=== PATIENT | female | born 1980 | race Caucasian/White ===

== ENCOUNTER 2019-08-16 14:22 | Inpatient (IN) | payer OTHER, SELFPAY ==
[2019-08-16] VITALS (12 sets, daily range): BP systolic 106–175; BP diastolic 51–76; PULSE 89–122; RESP 16–28; TEMP 36.3–37.2; O2SAT 98–100; BMI 25.7
[2019-08-16] MEDS: SODIUM CHLORIDE 0.9% 1,000 ML 1000 ML IV ×2 (14:35→17:10)
--- NOTE | 2019-08-16 14:36 | DI.RAD.S_ITS ---
PROCEDURE: XR CHEST 1V INDICATIONS: Tachypnea TECHNIQUE: One view of the chest was acquired. COMPARISON: [facility], , CHEST 1 VIEW, 09/01/2010, 3:37. FINDINGS: Surgical changes and devices: None. Lungs and pleura: Lungs are clear. No pleural effusions or pneumothorax. Mediastinum: Mediastinal contours appear normal. Heart size is normal. Bones and chest wall: No suspicious bony lesions. Overlying soft tissues appear unremarkable. IMPRESSION: No acute pulmonary process. Dictated by: Debby Salgado M.D. on 08/16/2019 at 14:21 Approved by: Debby Salgado M.D. on 08/16/2019 at 14:22
[2019-08-16 14:43] LABS: Add Manual Diff / Slide Review NO; Basophils Absolute Auto 200 /uL (0-100); Basophils Percent Auto 1.3 % (0-2); Eosinophils Absolute Auto 400 /uL (0-450); Eosinophils Percent Auto 2.2 % (2-4); Hemoglobin 15.5 g/dL (12.0-16.0); Lymphocytes Absolute Auto 4800 /uL (1100-4500); Lymphocytes Percent Auto 29.1 % (25-40); Mean Corpuscular HGB Conc 31.6 % (30-36); Mean Corpuscular Hemoglobin 30.3 PG (26-34); Monocytes Absolute Auto 900 /uL (0-900); Monocytes Percent Auto 5.4 % (3-14); Neutrophils Absolute Auto 10200 /uL (1500-7000); Platelet Count 584 X10^3/uL (150-400); Red Blood Cell Count 5.11 X10^6/uL (4.0-5.2); Red Cell Distribution Width 14.6 % (11.6-14.8); White Blood Cell Count 16.4 X10^3/uL (4.5-11.0)
[2019-08-16 14:55] LABS: Lactate (Lactic Acid) 3.1 mmol/L (0.7-2.1)
--- NOTE | 2019-08-16 15:09 | ED_ITS ---
HPI - General Adult General Chief complaint: Diabetic Problem Stated complaint: ketoacidosis Time Seen by Provider: 08/16/19 14:27 Source: patient Mode of arrival: Wheelchair Limitations: no limitations History of Present Illness HPI narrative: Patient is a 39-year-old female. She is a type 1 diabetic. Has been in DKA in the past. States for the past several days has not felt well. Has had some headaches. Has taken some ibuprofen for headaches. She has been taking her insulin. She does admit that her diet is not as good as it should be. Symptoms worsening until today when she stated that things got worse and came to the emergency department. Related Data Home Medications Medication Instructions Recorded Confirmed ibuprofen 600 mg PO PRN PRN 08/16/19 08/16/19 insulin lispro [Humalog U-100 0 unit INJ SEE INSTRUCTIONS 08/16/19 08/16/19 Insulin] levothyroxine 150 mcg PO DAILY 08/16/19 08/16/19 Allergies Allergy/AdvReac Type Severity Reaction Status Date / Time No Known Drug Allergies Allergy Verified 08/16/19 14:36 Review of Systems Constitutional Constitutional: Reports fatigue, Denies fever(s), Reports malaise and Reports weakness Eyes Eyes: Denies change in vision ENT Ears, Nose, Mouth, and Throat: Denies vertigo, Denies dizziness and Denies disequilibrium Cardiovascular Cardiovascular: Denies chest pain, Reports dyspnea and Reports dyspnea on exertion Respiratory Respiratory: Denies cough, Reports dyspnea and Reports dyspnea on exertion Gastrointestinal Gastrointestinal: Reports abdominal pain, Denies change in stool character, Reports nausea and Denies vomiting Genitourinary Genitourinary: Denies dysuria Musculoskeletal Musculoskeletal: Denies back pain, Denies myalgias and Denies arthralgias Integumentary/Breasts Skin/Breast: Denies lesions and Denies rash Neurologic Neurologic: Denies behavioral changes, Denies vertigo, Denies dizziness, Denies disequilibrium and Reports weakness Psychiatric Psychiatric: Denies behavioral changes Endocrine Endocrine: Reports fatigue Hematologic/Lymphatic Hematologic/Lymphatic: Denies easy bleeding and Denies easy bruising Allergic/Immunologic Allergic/Immunologic: Denies urticaria Patient History Medical History Acquired hypothyroidism Diabetes (Acute) Surgical History (Updated 01/12/18 @ 05:02 by Joselyn Hernandez MD) Status post hysteroscopy Status post myringotomy with insertion of tube Family History (Updated 07/23/15 @ 00:00 by Conversion Provider) Father Age: 64 High cholesterol Grandfather Age: 90 Diabetes mellitus Grandmother Age: 87 Breast cancer Mother Age: 64 High cholesterol Grandmother Cancer Heart disease Sister Age: 42 High cholesterol Social History Smoking Status: Unknown if ever smoked alcohol intake frequency: holidays/special occasions only Substance Use Type: does not use Exam Initial Vital Signs Initial Vital Signs: Vital Signs Temperature 97.3 F L 08/16/19 14:30 Pulse Rate 122 H 08/16/19 14:30 Respiratory Rate 23 08/16/19 14:30 Blood Pressure 175/54 H 08/16/19 14:30 Pulse Oximetry 100 08/16/19 14:30 Const General: cooperative, comfortable and well developed Orientation: alert, awake and oriented x3 HENMT Head: normal to inspection and normocephalic Mouth: No moist mucous membranes Eyes Pupils: PERRL Resp Effort & Inspection: not labored and tachypneic Auscultation: not clear to auscultation bilaterally Cardio Rate: tachycardic Rhythm: regular rhythm Pulses: radial pulses present GI Inspection: non-distended Palpation: soft, No firm and No tender Skin Lesions: no lesions Rashes: no rashes Neuro General: alert, awake and oriented x3 Cognition: normal cognition Speech: speech normal Motor: muscle tone normal throughout Extrem General: normal to inspection and capillary refill normal Psych Appearance: grossly normal and well kempt Course Orders Ordered: ED Orders 08/16/19 14:30 Complete Blood Count AUTO DIFF Stat Lactate (Lactic Acid) Stat 08/16/19 14:36 XR chest 1V Stat 08/16/19 14:37 EKG-12 Lead Stat 08/16/19 14:55 Comprehensive Metabolic Panel Stat Ethanol (ETOH) Stat Ketones (Beta-Hydroxybutyrate) Stat Lipase Stat Magnesium Stat Phosphorous Stat Test Serum,Qual Stat Procalcitonin Stat Thyroid Stimulating Hormone Stat 08/16/19 15:02 Arterial Blood Gas Stat 08/16/19 16:35 Respiratory Panel (Film Array) Stat INSULIN DRIP PREMIX (Myxredlin Drip Premix) 100 unit in 100 mls @ 8 mls/hr IV TITRATE FER; Protocol Last Admin: 08/16/19 16:01 Dose: 8 ml/hr, 8 mls/hr Documented by: DAJUAN Potassium Chloride 20 meq/ (Sodium Chloride) 260 mls @ 130 mls/hr IV NOW ONE Stop: 08/16/19 17:24 Last Admin: 08/16/19 16:20 Dose: 130 mls/hr Documented by: DAJUAN Cosigned by: BTONER Sodium Chloride (Normal Saline 0.9%) 1,000 mls @ 250 mls/hr IV CONT FER Last Admin: 08/16/19 16:05 Dose: 250 mls/hr Documented by: DAJUAN Sodium Chloride (Normal Saline 0.9%) 1,000 mls @ 1,000 mls/hr IV BOLUS ONE Stop: 08/16/19 17:33 Discontinued Medications Sodium Chloride (Normal Saline 0.9%) 1,000 mls @ 1,000 mls/hr IV BOLUS ONE Stop: 08/16/19 15:34 Last Infusion: 08/16/19 15:44 Dose: 0 mls/hr Documented by: Admin: 08/16/19 14:35 Dose: 1,000 mls/hr Documented by: DAJUAN Vital Signs Vital signs: Vital Signs - 8 hr 08/16/19 14:30 08/16/19 15:00 08/16/19 15:11 Temperature 97.3 F L Pulse Rate 122 H 111 H 111 H Respiratory Rate 23 28 H 22 Blood Pressure 175/54 H Blood Pressure [Left Arm] 155/71 H Pulse Oximetry 100 100 100 08/16/19 15:30 Temperature Pulse Rate 104 H Respiratory Rate 21 Blood Pressure Blood Pressure [Left Arm] 135/66 Pulse Oximetry 100 Medical Decision Making Lab Data Lab results reviewed: Yes I reviewed the patient's lab results. Result diagrams: 08/16/19 14:30 08/16/19 14:55 Labs: Lab Results 08/16/19 08/16/19 08/16/19 Range/Units 14:30 14:30 14:55 WBC 16.4 H (4.5-11.0) X10^3/uL RBC 5.11 (4.0-5.2) X10^6/uL Hgb 15.5 (12.0-16.0) g/dL Hct 49.0 H (36-46) % MCV 96.0 (80-100) fL MCH 30.3 (26-34) PG MCHC 31.6 (30-36) % RDW 14.6 (11.6-14.8) % Plt Count 584 H (150-400) X10^3/uL Neut % (Auto) 62.0 (50-75) % Lymph % (Auto) 29.1 (25-40) % [place] % (Auto) 5.4 (3-14) % Eos % (Auto) 2.2 (2-4) % Baso % (Auto) 1.3 (0-2) % Neut # (Auto) 90522 H (5425-1838) /uL Lymph # (Auto) 4800 H (2797-8509) /uL [place] # (Auto) 900 (0-900) /uL Eos # (Auto) 400 (0-450) /uL Baso # (Auto) 200 H (0-100) /uL ABG pH (7.35-7.45) ABG pCO2 (35-45) mmHg ABG pO2 (80-100) mmHg ABG HCO3 (22-26) mmol/L ABG Total CO2 (21-31) mmol/L ABG O2 Saturation (95-100) % ABG Base Excess (-2-2) mmol/L FiO2 Sodium (137-145) mmol/L Potassium (3.4-5.1) mmol/L Chloride (98-107) mmol/L Carbon Dioxide (22-32) mmol/L BUN (7-17) mg/dL Creatinine (0.52-1.04) mg/dL Estimated GFR (>60) mL/min BUN/Creatinine Ratio (6-22) Glucose (70-100) mg/dL Lactate 3.1 H (0.7-2.1) mmol/L Calcium (8.4-10.2) mg/dL Phosphorus (2.5-4.5) mg/dL Magnesium (1.6-2.3) mg/dL Total Bilirubin (0.2-1.3) mg/dL AST (14-36) IU/L ALT (<35) IU/L Alkaline Phosphatase (38-126) U/L Total Protein (6.3-8.2) g/dL Albumin (3.5-5.0) g/dL Globulin (1.7-4.1) g/dL Albumin/Globulin Ratio (1.0-2.8) Lipase (23-300) U/L Procalcitonin 0.18 (<0.5) ng/mL TSH (0.47-4.68) uIU/mL Serum , Qual Negative (Negative) Ethyl Alcohol ( - 10) mg/dL Ketones (<0.27) mmol/L 08/16/19 08/16/19 08/16/19 Range/Units 14:55 14:55 15:02 WBC (4.5-11.0) X10^3/uL RBC (4.0-5.2) X10^6/uL Hgb (12.0-16.0) g/dL Hct (36-46) % MCV (80-100) fL MCH (26-34) PG MCHC (30-36) % RDW (11.6-14.8) % Plt Count (150-400) X10^3/uL Neut % (Auto) (50-75) % Lymph % (Auto) (25-40) % [place] % (Auto) (3-14) % Eos % (Auto) (2-4) % Baso % (Auto) (0-2) % Neut # (Auto) (3779-3625) /uL Lymph # (Auto) (6631-7841) /uL [place] # (Auto) (0-900) /uL Eos # (Auto) (0-450) /uL Baso # (Auto) (0-100) /uL ABG pH 7.18 L* (7.35-7.45) ABG pCO2 9.0 L* (35-45) mmHg ABG pO2 131 H (80-100) mmHg ABG HCO3 3 L (22-26) mmol/L ABG Total CO2 < 5 L (21-31) mmol/L ABG O2 Saturation 98 (95-100) % ABG Base Excess -25.0 L (-2-2) mmol/L FiO2 0.21 Sodium 142 (137-145) mmol/L Potassium 4.1 (3.4-5.1) mmol/L Chloride 108 H (98-107) mmol/L Carbon Dioxide 8 L* (22-32) mmol/L BUN 11 (7-17) mg/dL Creatinine 0.90 (0.52-1.04) mg/dL Estimated GFR > 60.0 (>60) mL/min BUN/Creatinine Ratio 12.2 (6-22) Glucose 359 H (70-100) mg/dL Lactate (0.7-2.1) mmol/L Calcium 9.3 (8.4-10.2) mg/dL Phosphorus 3.5 (2.5-4.5) mg/dL Magnesium 2.1 (1.6-2.3) mg/dL Total Bilirubin 0.4 (0.2-1.3) mg/dL AST 36 (14-36) IU/L ALT 28 (<35) IU/L Alkaline Phosphatase 224 H (38-126) U/L Total Protein 7.8 (6.3-8.2) g/dL Albumin 4.3 (3.5-5.0) g/dL Globulin 3.5 (1.7-4.1) g/dL Albumin/Globulin Ratio 1.2 (1.0-2.8) Lipase 61 (23-300) U/L Procalcitonin (<0.5) ng/mL TSH 15.60 H (0.47-4.68) uIU/mL Serum , Qual (Negative) Ethyl Alcohol < 10 ( - 10) mg/dL Ketones 9.75 H (<0.27) mmol/L Point of Care Testing Glucose POC 347 Point of care testing: Point of Care Testing Glucose POC 347 Imaging Data Chest x-ray: Radiologist's impression: [address] [address] XRay Report Signed Patient: Catina Moya [facility]#: [id number] : 1980Acct:[id number] Age/Sex: 39 / FDate of Service: 08/16/19 Loc: ED Accession Number: [id number] Procedure: XR chest 1V Ordering Provider: Sidney Nolen D.O. PROCEDURE: XR CHEST 1V INDICATIONS: Tachypnea TECHNIQUE: One view of the chest was acquired. COMPARISON: [facility], CHEST 1 VIEW, 09/01/2010, 3:37. FINDINGS: Surgical changes and devices: None. Lungs and pleura: Lungs are clear. No pleural effusions or pneumothorax. Mediastinum: Mediastinal contours appear normal. Heart size is normal. Bones and chest wall: No suspicious bony lesions. Overlying soft tissues appear unremarkable. IMPRESSION: No acute pulmonary process. Dictated by: Debby Salgado M.D. on 08/16/2019 at 14:21 Approved by: Debby Salgado M.D. on 08/16/2019 at 14:22 ECG Data Attestation: I personally reviewed and interpreted this ECG as follows: Prior ECG tracings: not available for review Interpretation: Sinus tachycardia Ventricular rate of 121 Normal axis Normal QRS Normal QTC No ST T wave changes MDM Narrative Medical decision making narrative: No specific source of infection found however her respiratory panel 1 urinalysis were still pending at the time of admission. Patient states she is taking her insulin but does admit to not having a very good diet. She also admits to not taking her thyroid medication on a regular basis per patient has labs and history and physical consistent with DKA. Anion gap is 26. Potassium 4.1. Patient was given fluids. Started on an insulin drip. Was also given potassium. Mag and phos unremarkable. I discussed the admission with hospitalist who accepts. Discussed the diagnosis and admission with the patient expressed understanding and agreement. Critical Care Time Critical Care Time Critical Care Time: Yes Total Critical Care Time: 40 Attestation: The high probability of a clinically significant, sudden or life threatening deterioration of the endocrine system(s) required my full and direct attention, intervention and personal management. The aggregate critical care time was 40 minutes. This time is in addition to time spent performing reported procedures but includes the following: [] Data Review and interpretation [] Patient assessment and monitoring of vital signs [] Documentation [] Medication orders and management Discharge Plan Departure Patient Disposition: Admitted As Inpatient Clinical Impression: Diabetic ketoacidosis Qualifiers: Diabetes mellitus type: type 1 Diabetes mellitus complication detail: without coma Qualified Code(s): E10.10 - Type 1 diabetes mellitus with ketoacidosis without coma Hypothyroid Qualifiers: Hypothyroidism type: unspecified Qualified Code(s): E03.9 - Hypothyroidism, unspecified
[2019-08-16 15:13] LABS: HEMOLYSIS < 15 (0-50)
[2019-08-16 15:19] LABS: Alanine Aminotransferase 28 IU/L (<35); Albumin 4.3 g/dL (3.5-5.0); Albumin Globulin Ratio 1.2 (1.0-2.8); Alkaline Phosphatase 224 U/L (38-126); Aspartate Aminotransferase 36 IU/L (14-36); BUN Creatinine Ratio 12.2 (6-22); Bilirubin Total 0.4 mg/dL (0.2-1.3); Blood Urea Nitrogen 11 mg/dL (7-17); Calcium 9.3 mg/dL (8.4-10.2); Chloride 108 mmol/L (98-107); Estimated Glomerular Filt Rate > 60.0 mL/min (>60); Ethanol (ETOH) < 10 mg/dL; Globulin 3.5 g/dL (1.7-4.1); Glucose 359 mg/dL (70-100); Lipase 61 U/L (23-300); Magnesium 2.1 mg/dL (1.6-2.3); Phosphorous 3.5 mg/dL (2.5-4.5); Potassium 4.1 mmol/L (3.4-5.1); Sodium 142 mmol/L (137-145); Total Protein 7.8 g/dL (6.3-8.2)
[2019-08-16 15:22] LABS: Carbon Dioxide 8 mmol/L (22-32)
[2019-08-16 15:32] LABS: Ketones (Beta-Hydroxybutyrate) 9.75 mmol/L (<0.27)
[2019-08-16 15:38] LABS: Pregnancy Test Serum,Qual Negative (Negative)
[2019-08-16 15:40] LABS: Procalcitonin 0.18 ng/mL (<0.5)
[2019-08-16 15:47] LABS: HCO3 ABG 3 mmol/L (22-26); PO2 ABG 131 mmHg (80-100); TCO2 ABG < 5 mmol/L (21-31); pH ABG 7.18 (7.35-7.45)
[2019-08-16 15:48] LABS: Fractionated Inspired Oxygen 0.21; Oxygen Saturation ABG 98 % (95-100)
[2019-08-16] MEDS: INSULIN DRIP PREMIX 100 UNIT/100 ML PLAST..BAG 8 UNIT IV (16:01)
--- NOTE | 2019-08-16 16:02 | PC.NURSE ---
Verified Insulin drip with Lupe Hurley RN
[2019-08-16] MEDS: SODIUM CHLORIDE 0.9% 1,000 ML 250 ML IV (16:05)
[2019-08-16] MEDS: POTASSIUM CHLORIDE 20 MEQ in SODIUM CHLORIDE 0.9% 250 ML 130 ML IV (16:20)
[2019-08-16 16:50] LABS: Reflexed Lactate in 2 Hours Y
--- NOTE | 2019-08-16 17:50 | PC.NURSE ---
Admit Note Pt arrived to room 104 from ER at 1700, walked to bed from stretcher. Alert and oriented x3. Oriented to room and to call light/TV/bed controls. Call light within reach. Boyfriend, Tc, took patient's wallet home. Pt's cell phone and clothing in room. Insulin gtt at 8 un/hr on arrival, CBG 159 and gtt titrated to 4 un/hr per protocol and after discussion with Dr. Fox. D5 1/2 NS to be started per DKA protocol after second L NS infused per Dr. Fox. SR/ST in the 90-100 bpm range, bp stable, SpO2 100% on RA.
[2019-08-16] MEDS: DEXTROSE 10 % IN WATER 1,000 ML 158 ML IV (18:10)
[2019-08-16] MEDS: DEXTROSE 5%-0.45% NS 1,000 ML 118.5 ML IV (19:00)
[2019-08-16 19:10] LABS: Bacteria Urine None Seen; RBC Urine None Seen (0-5/HPF); WBC Urine None Seen (0-5/HPF)
[2019-08-16 19:12] LABS: Appearance Urine UA CLEAR; Bilirubin Urine UA 2+ (NEGATIVE); Color Urine UA YELLOW; Glucose Urine UA 1+ g/dL (Negative); Ketones Urine UA 3+ (NEGATIVE); Leukocyte Esterase Urine UA NEGATIVE (NEGATIVE); Nitrite Urine UA NEGATIVE (Negative); Occult Blood Urine UA TRACE-LYSED (Negative); Protein Urine UA 2+ (Negative); Specific Gravity Urine UA 1.025 (1.000-1.035); Urobilinogen Urine UA 0.2 E.U./dL (0.2)
[2019-08-16] MEDS: ACETAMINOPHEN 325 MG TABLET 650 MG PO (19:25)
[2019-08-16 19:27] LABS: Blood Urea Nitrogen 9 mg/dL (7-17); Calcium 8.1 mg/dL (8.4-10.2); Carbon Dioxide 14 mmol/L (22-32); Chloride 113 mmol/L (98-107); Estimated Glomerular Filt Rate > 60.0 mL/min (>60); Glucose 154 mg/dL (70-100); HEMOLYSIS < 15 (0-50); Potassium 3.8 mmol/L (3.4-5.1); Sodium 140 mmol/L (137-145)
[2019-08-16 19:28] LABS: pH Urine UA 5.5 (4.5-8.0)
[2019-08-16 19:41] LABS: Granular Casts Urine 5-10/LPF; Squamous Epithelial Cell Urine 1-5 /HPF (0-5/HPF)
[2019-08-16 19:46] LABS: Ictotest Urine Positive (Negative)
--- NOTE | 2019-08-16 20:00 | PM.HP.1 ---
History of Present Illness History of Present Illness Date Patient Seen: 08/16/19 Time Patient Seen: 20:00 Chief complaint: ketoacidosis Narrative: The patient is a 39-year-old female with PMH of DM 1T (w/complications of diabetic retinopathy), hypothyroidism, dyslipidemia, and migraines. Patient presented out of concern for diabetic ketoacidosis. She has had DKA in the past, last 4 years ago (by report). Reports a 4 day history of generalized malaise, nausea, and vomiting (1-2x per day). Symptoms have been persistent. Associated symptoms include a weakness, headache, palpitations, and difficulty breathing. Over the past today she has developed a headache, localized to the frontal aspect of the head. Admits to taking 600 mg of ibuprofen 3 to 4 times a day. Today (08/16), prior to ED presentation, was having difficulty breathing and felt lightheaded when trying to ambulate. Patient denies recent illness, fever or chills. Denies chest pain and syncopal events. Denies dyspnea with exertion, peripheral edema, and orthopnea. Denies PND. Denies symptoms of URI and UTI. Denies change in weight. Denies abdominal pain, diarrhea, melena, and hematochezia. Recently experiencing work related stressors. Also, patient and significant other, boyfriend Tc, verbalized stressors related to parenthood and childrearing. Patient was diagnosed with DM 1T in 1994. Outside of the hospital patient manages her diabetes with Humalog only, per sliding scale. She was on an insulin pump until 2016. Stopped using the pump after her child was born, as the infant was pulling on the lines of the pump and causing pump malfunction. It has been a number of years since her A1c was checked, last record of 6.9% (07/2017). Most recent eye exam (09/2017) showed presence of mild diabetic retinopathy. Patient was previously on lisinopril for renal protective effects. She denies prior current history of hypertension. At present time she does not see an requirements engineer, however has seen one in the past. Currently her insulin is being being prescribed by Kerrie DOSHI in [place]. Records show that she was seeing Dr. Joselyn Hernandez in the past. According to the patient, this provider is no longer in the area and she has not established care with a new PCP. Records show history of dyslipidemia. She was previously on lovastatin. ED Presentation & Work-Up VS at triage, 08/16 14:30. T 97.3F BP 175/54 HR 122 RR 23 SpO2 100% on RA. GCS 15. Head pain on presentation, 05/24. Improvement in VS and headache w/ IVF hydration. EKG, 08/16/19 14:41. ST (v-rate 121) w/ short NC interval (113 ms). Non-specific T-waves. QTc 461. Increased T wave amplitude V2 V3, not overtly peaked. ABG, 08/16 at 15:02... pH 7.18 pCO2 9.0 pO2 131 HCO3 3 Base Excess -25 Serum Ketones 9.75 Lactate 3.1 (:30) --> 2.0 (1952) WBC 16.4 PCT 0.18 CBC 08/16, 14:30... RBC 5.11 Hgb 15.5 Hct 49.0 Plt 584 Labs 08/16, 14:55... Na 142 K 4.1 Cl 108 Ca 9.3 Glu 359 CO2 8 BUN 11 Cr 0.9 T.Bili 0.4 AST 36 ALT 28 ALK PHOS 224 Lipase 61 TSH 15.6 Labs 08/16, 19:06... Na 140 K 3.8 Cl 113 Ca 8.1 Glu 154 CO2 14 BUN 9 Cr 0.6 UA (1909) protein (2+), glucose 1+, ketones 3+, bilirubin 2+ ictotest positive Patient History Medical History (Updated 08/16/19 @ 23:37 by KARSTEN Mejia) Diabetes mellitus type 1 with complications (Chronic ~1994) Diabetic retinopathy (Chronic 09/21/17) Dyslipidemia (Chronic) Hypothyroid (Chronic ~1991) Surgical History Status post hysteroscopy Status post myringotomy with insertion of tube Family & Social History Family History Father Age: 64 High cholesterol Grandfather Age: 90 Diabetes mellitus Grandmother Age: 87 Breast cancer Mother Age: 64 High cholesterol Grandmother Cancer Heart disease Sister Age: 42 High cholesterol Social History: household members significant other and a 3 yo child Prior Living Arrangements House Safety & Behavioral: Feels Safe in Current Yes Environment Been Physically Hurt or No Threatened By a Person Suicidal Ideation Description None Suicide Plan Description No Plan Tobacco & Substance use: Smoking Status Never smoker alcohol intake frequency holiday/special occasion Substance Use Type Denies prior and current use Meds Home Medications and Allergies Home Medications Medication Instructions Recorded Confirmed Type ibuprofen 600 mg PO PRN PRN 08/16/19 08/16/19 History insulin lispro [Humalog U-100 0 unit INJ SEE INSTRUCTIONS 08/16/19 08/16/19 History Insulin] levothyroxine 150 mcg PO DAILY 08/16/19 08/16/19 History Allergies Allergy/AdvReac Type Severity Reaction Status Date / Time No Known Drug Allergies Allergy Verified 08/16/19 14:36 Review of Systems Review of Systems ROS Unobtainable: All systems reviewed & are unremarkable except as noted in HPI and below Exam Vital Signs (past 8 hours): - 08/16/19 14:30 08/16/19 15:00 08/16/19 15:11 Temperature 97.3 F L Pulse Rate 122 H 111 H 111 H Respiratory Rate 23 28 H 22 Blood Pressure 175/54 H Blood Pressure [Left Arm] 155/71 H Pulse Oximetry 100 100 100 08/16/19 15:30 08/16/19 16:30 08/16/19 17:11 Temperature 99 F Pulse Rate 104 H 101 H 105 H Respiratory Rate 21 20 21 Blood Pressure 115/66 Blood Pressure [Left Arm] 135/66 106/76 Pulse Oximetry 100 100 100 08/16/19 18:38 08/16/19 19:33 Temperature Pulse Rate 99 H 98 H Respiratory Rate 19 19 Blood Pressure 111/60 113/52 L Blood Pressure [Left Arm] Pulse Oximetry 99 99 Oxygen Delivery Method Room Air Narrative Exam Narrative: Constitutional: NAD Neurologic: AOx3, no focal neurological deficits Head: NC, AT Eyes: PERRL, EOMI, Ears: external ears normal, no otorrhea Nose: external nose normal, no rhinorrhea or epistaxis Throat: dry MM, oropharynx w/o exudate Neck: no masses, lymphadenopathy, or JVD Chest / Respiratory: equal chest rise, unlabored respiratory effort, no tachypnea, CTAB, on RA Heart / CV: S1S2, no murmur Abdomen / GI: round, NT, ND, + BS / hyperactive, no organomegaly : no suprapubic tenderness, no CVA Peripheral / Vascular: warm to touch, DP and PT pulses palpable, no edema Musc: full ROM of upper and lower extremities, adequate muscle tone and bulk Skin: no ecchymosis or suspicious lesions / ulcers Objective Labs Result Diagrams: 08/17/19 04:09 08/17/19 04:09 Labs: Laboratory Results - last 24 hr 08/16/19 08/16/19 08/16/19 14:30 14:30 14:55 WBC 16.4 H RBC 5.11 Hgb 15.5 Hct 49.0 H MCV 96.0 MCH 30.3 MCHC 31.6 RDW 14.6 Plt Count 584 H Neut % (Auto) 62.0 Lymph % (Auto) 29.1 Moody % (Auto) 5.4 Eos % (Auto) 2.2 Baso % (Auto) 1.3 Neut # (Auto) 15307 H Lymph # (Auto) 4800 H Moody # (Auto) 900 Eos # (Auto) 400 Baso # (Auto) 200 H ABG pH ABG pCO2 ABG pO2 ABG HCO3 ABG Total CO2 ABG O2 Saturation ABG Base Excess FiO2 Sodium Potassium Chloride Carbon Dioxide BUN Creatinine Estimated GFR BUN/Creatinine Ratio Glucose Lactate 3.1 H Calcium Phosphorus Magnesium Total Bilirubin AST ALT Alkaline Phosphatase Total Protein Albumin Globulin Albumin/Globulin Ratio Lipase Procalcitonin 0.18 TSH Serum , Qual Negative Urine Color Urine Appearance Urine pH Ur Specific [place] Urine Protein Urine Glucose (UA) Urine Ketones Urine Occult Blood Urine Nitrate Urine Bilirubin Urine Ictotest Urine Urobilinogen Ur Leukocyte Esterase Urine RBC Urine WBC Ur Squamous Epith Cells Urine Bacteria Granular Casts Ur Culture Indicated? Ethyl Alcohol Ketones 08/16/19 08/16/19 08/16/19 14:55 14:55 15:02 WBC RBC Hgb Hct MCV MCH MCHC RDW Plt Count Neut % (Auto) Lymph % (Auto) Moody % (Auto) Eos % (Auto) Baso % (Auto) Neut # (Auto) Lymph # (Auto) Moody # (Auto) Eos # (Auto) Baso # (Auto) ABG pH 7.18 L* ABG pCO2 9.0 L* ABG pO2 131 H ABG HCO3 3 L ABG Total CO2 < 5 L ABG O2 Saturation 98 ABG Base Excess -25.0 L FiO2 0.21 Sodium 142 Potassium 4.1 Chloride 108 H Carbon Dioxide 8 L* BUN 11 Creatinine 0.90 Estimated GFR > 60.0 BUN/Creatinine Ratio 12.2 Glucose 359 H Lactate Calcium 9.3 Phosphorus 3.5 Magnesium 2.1 Total Bilirubin 0.4 AST 36 ALT 28 Alkaline Phosphatase 224 H Total Protein 7.8 Albumin 4.3 Globulin 3.5 Albumin/Globulin Ratio 1.2 Lipase 61 Procalcitonin TSH 15.60 H Serum , Qual Urine Color Urine Appearance Urine pH Ur Specific [place] Urine Protein Urine Glucose (UA) Urine Ketones Urine Occult Blood Urine Nitrate Urine Bilirubin Urine Ictotest Urine Urobilinogen Ur Leukocyte Esterase Urine RBC Urine WBC Ur Squamous Epith Cells Urine Bacteria Granular Casts Ur Culture Indicated? Ethyl Alcohol < 10 Ketones 9.75 H 08/16/19 08/16/19 19:06 19:09 WBC RBC Hgb Hct MCV MCH MCHC RDW Plt Count Neut % (Auto) Lymph % (Auto) Moody % (Auto) Eos % (Auto) Baso % (Auto) Neut # (Auto) Lymph # (Auto) Moody # (Auto) Eos # (Auto) Baso # (Auto) ABG pH ABG pCO2 ABG pO2 ABG HCO3 ABG Total CO2 ABG O2 Saturation ABG Base Excess FiO2 Sodium 140 Potassium 3.8 Chloride 113 H Carbon Dioxide 14 L BUN 9 Creatinine 0.60 Estimated GFR > 60.0 BUN/Creatinine Ratio 15.0 Glucose 154 H D Lactate Calcium 8.1 L Phosphorus Magnesium Total Bilirubin AST ALT Alkaline Phosphatase Total Protein Albumin Globulin Albumin/Globulin Ratio Lipase Procalcitonin TSH Serum , Qual Urine Color Yellow Urine Appearance Clear Urine pH 5.5 Ur Specific [place] 1.025 Urine Protein 2+ H Urine Glucose (UA) 1+ H Urine Ketones 3+ H Urine Occult Blood Trace-lysed Urine Nitrate Negative Urine Bilirubin 2+ H Urine Ictotest Positive H Urine Urobilinogen 0.2 Ur Leukocyte Esterase Negative Urine RBC None seen Urine WBC None seen Ur Squamous Epith Cells 1-5 /hpf Urine Bacteria None seen Granular Casts 5-10/lpf Ur Culture Indicated? Culture not indicate Ethyl Alcohol Ketones Assessment & Plan Assessment & Plan narrative: Patient is being admitted to ICU for DKA. DKA, acute, present on admission, active - On admission pH 7.18 pCO2 8 ketones 9.75 - Baseline EKG. ST w/ short NC. Non-specific T-waves. Increased T-wave amplitude V2 V3, not overtly peaked. QTc 461. - Tele monitoring - Insulin and IVF per DKA protocol. - BMP, Mg, Phos, and CBC Q4H x3 (0000, 0400, and 0800), then re-evaluate need for Q4H labs - Add to labs that have been drawn: A1C, Mg, Phos, and UDS results reviewed: A1C 10.6%, Mg 2.0, Phos 1.6, UDS - negative - ok to advance diet to clears only at this time - supportive care: analgesics and anti-emetics available prn DM 1T, chronic condition, present on admission, active / uncontrolled - A1C 10.6% - Known complications of diabetic retinopathy (09/2017) - LAUNDRY TECH on Humalog per SSI - on hold while treating DKA - Encouraged annual eye exam and foot checks - Encouraged patient to establish care w/ endocrinology, at least to see annually - Consider checking for proteinuria once DKA resolved, previously on lisinopril for dianna-protective effects, but has not been taking for a while Hypothyroidism, chronic condition, present on admission, active / uncontrolled - on levothyroxine 150 mcg daily levothyroxine dose has last been checked and dose adjusted 1 year ago per patient's report Headache, acute, present on admission, active - In the setting of acute illness / dehydration. - IVF, analgesics available prn Dyslipidemia, per history with previous use of statin, active - Previously on a statin, has not been taken, lipid control is unknown - FLP in am Full code. No formal health directive. Designates significant other is healthcare proxy. Home medications reviewed and reconciled accordingly. VTE prophylaxis w/ SCDs and SQ lovenox Quality VTE Deep Vein Thrombosis/Pulmonary Embolism Present on Admission: No
[2019-08-16 20:23] LABS: Phosphorous 1.6 mg/dL (2.5-4.5)
[2019-08-16 20:31] LABS: UR Morphine/Opiate cutoff 300 Negative (Negative); Ur Creatinine Normal (Normal); Ur Specific Gravity Normal (Normal); Urine Amphetamines Negative (Negative); Urine Barbiturates Negative (Negative); Urine Benzodiazepines Negative (Negative); Urine Cocaine Negative (Negative); Urine MDMA Negative (Negative); Urine Methadone Negative (Negative); Urine Methamphetamines Negative (Negative); Urine Oxycodone Negative (Negative); Urine Phencyclidine Negative (Negative); Urine Tetrahydrocannabinol Negative (Negative); Urine Tricyclic Antidepressant Negative (Negative); Urine pH Normal (Normal)
[2019-08-16 20:50] LABS: Adenovirus Not Detected (Not Detect); Bordetella pertussis Not Detected (Not Detect); Chlamydophila pneumoniae Not Detected (Not Detect); Coronavirus 229E Not Detected (Not Detect); Coronavirus HKU1 Not Detected (Not Detect); Coronavirus NL 63 Not Detected (Not Detect); Coronavirus OC43 Not Detected (Not Detect); Human Metapneumovirus Not Detected (Not Detect); Human Rhinovirus/Enterovirus Not Detected (Not Detect); Influenza A Not Detected (Not Detect); Influenza B Not Detected (Not Detect); Mycoplasma pneumoniae Not Detected (Not Detect); Parainfluenza Virus 1 Not Detected (Not Detect); Parainfluenza Virus 2 Not Detected (Not Detect); Parainfluenza Virus 3 Not Detected (Not Detect); Parainfluenza Virus 4 Not Detected (Not Detect); Respiratory Syncytial Virus Not Detected (Not Detect)
[2019-08-16 21:25] LABS: Hemoglobin A1C% w Est Avg Glu 10.6 % (4.0-6.0)
[2019-08-16] MEDS: POTASSIUM CHLORIDE 40 MEQ in SODIUM CHLORIDE 0.9% 500 ML 130 ML IV (22:32)
[2019-08-17] VITALS (13 sets, daily range): BP systolic 102–127; BP diastolic 39–67; PULSE 76–98; RESP 15–20; TEMP 36.8–37.2; O2SAT 98–100
[2019-08-17] MEDS: ACETAMINOPHEN 325 MG TABLET 650 MG PO ×2 (00:11→08:22)
[2019-08-17 00:34] LABS: Add Manual Diff / Slide Review NO; Basophils Absolute Auto 100 /uL (0-100); Eosinophils Absolute Auto 300 /uL (0-450); Eosinophils Percent Auto 2.1 % (2-4); Hematocrit 36.2 % (36-46); Hemoglobin 11.6 g/dL (12.0-16.0); Lymphocytes Absolute Auto 3700 /uL (1100-4500); Lymphocytes Percent Auto 28.5 % (25-40); Mean Corpuscular Hemoglobin 29.6 PG (26-34); Mean Corpuscular Volume 92.5 fL (80-100); Monocytes Absolute Auto 1300 /uL (0-900); Monocytes Percent Auto 10.1 % (3-14); Neutrophils Absolute Auto 7500 /uL (1500-7000); Neutrophils Percent Auto 58.3 % (50-75); Platelet Count 372 X10^3/uL (150-400); Red Blood Cell Count 3.92 X10^6/uL (4.0-5.2); Red Cell Distribution Width 14.6 % (11.6-14.8); White Blood Cell Count 12.9 X10^3/uL (4.5-11.0)
[2019-08-17 00:46] LABS: BUN Creatinine Ratio 13.3 (6-22); Blood Urea Nitrogen 8 mg/dL (7-17); Calcium 8.1 mg/dL (8.4-10.2); Carbon Dioxide 15 mmol/L (22-32); Chloride 112 mmol/L (98-107); Estimated Glomerular Filt Rate > 60.0 mL/min (>60); Glucose 247 mg/dL (70-100); HEMOLYSIS < 15 (0-50); Magnesium 1.8 mg/dL (1.6-2.3); Potassium 4.2 mmol/L (3.4-5.1); Sodium 136 mmol/L (137-145)
[2019-08-17 04:57] LABS: Add Manual Diff / Slide Review NO; Basophils Absolute Auto 100 /uL (0-100); Basophils Percent Auto 0.6 % (0-2); Cholesterol 173 mg/dL (140-199); Eosinophils Absolute Auto 300 /uL (0-450); Eosinophils Percent Auto 2.3 % (2-4); HDL Cholesterol 30 mg/dL (40-60); LDL Cholesterol Calculated 77 mg/dL (<100); Lymphocytes Absolute Auto 4000 /uL (1100-4500); Mean Corpuscular HGB Conc 32.4 % (30-36); Mean Corpuscular Volume 92.6 fL (80-100); Monocytes Absolute Auto 1500 /uL (0-900); Monocytes Percent Auto 11.3 % (3-14); Neutrophils Absolute Auto 7400 /uL (1500-7000); Neutrophils Percent Auto 55.8 % (50-75); Platelet Count 349 X10^3/uL (150-400); Red Blood Cell Count 3.68 X10^6/uL (4.0-5.2); Triglycerides 328 mg/dL (35-150); White Blood Cell Count 13.2 X10^3/uL (4.5-11.0)
[2019-08-17 04:58] LABS: BUN Creatinine Ratio 11.7 (6-22); Blood Urea Nitrogen 7 mg/dL (7-17); Calcium 8.3 mg/dL (8.4-10.2); Carbon Dioxide 14 mmol/L (22-32); Chloride 112 mmol/L (98-107); Estimated Glomerular Filt Rate > 60.0 mL/min (>60); Glucose 196 mg/dL (70-100); HEMOLYSIS < 15 (0-50); Magnesium 1.9 mg/dL (1.6-2.3); Potassium 4.2 mmol/L (3.4-5.1); Sodium 135 mmol/L (137-145)
[2019-08-17 05:28] LABS: Phosphorous 1.1 mg/dL (2.5-4.5)
[2019-08-17] MEDS: LEVOTHYROXINE 150 MCG TABLET PO (08:21)
[2019-08-17] MEDS: POTASSIUM CHLORIDE 20 MEQ in SODIUM CHLORIDE 0.9% 250 ML 130 ML IV (08:21)
[2019-08-17] MEDS: ENOXAPARIN 40 MG/0.4 ML SYRINGE SUBCUT (08:21)
[2019-08-17 08:48] LABS: Fractionated Inspired Oxygen 0.21; HCO3 ABG 11 mmol/L (22-26); Oxygen Saturation ABG 87 % (95-100); PO2 ABG 54 mmHg (80-100); TCO2 ABG 12 mmol/L (21-31); pH ABG 7.34 (7.35-7.45)
[2019-08-17 08:49] LABS: PCO2 ABG 20.5 mmHg (35-45)
[2019-08-17 09:03] LABS: Add Manual Diff / Slide Review NO; Basophils Absolute Auto 100 /uL (0-100); Basophils Percent Auto 1.1 % (0-2); Eosinophils Absolute Auto 400 /uL (0-450); Eosinophils Percent Auto 3.8 % (2-4); Hematocrit 34.6 % (36-46); Hemoglobin 11.3 g/dL (12.0-16.0); Lymphocytes Absolute Auto 3000 /uL (1100-4500); Lymphocytes Percent Auto 26.7 % (25-40); Mean Corpuscular HGB Conc 32.5 % (30-36); Mean Corpuscular Hemoglobin 30.1 PG (26-34); Mean Corpuscular Volume 92.6 fL (80-100); Monocytes Absolute Auto 1200 /uL (0-900); Monocytes Percent Auto 10.2 % (3-14); Neutrophils Absolute Auto 6600 /uL (1500-7000); Neutrophils Percent Auto 58.2 % (50-75); Platelet Count 343 X10^3/uL (150-400); Red Blood Cell Count 3.73 X10^6/uL (4.0-5.2); Red Cell Distribution Width 14.9 % (11.6-14.8); White Blood Cell Count 11.4 X10^3/uL (4.5-11.0)
[2019-08-17] MEDS: INSULIN DRIP PREMIX 100 UNIT/100 ML PLAST..BAG 12 UNIT IV (09:05)
[2019-08-17 09:06] LABS: Blood Urea Nitrogen 6 mg/dL (7-17); Calcium 8.4 mg/dL (8.4-10.2); Carbon Dioxide 13 mmol/L (22-32); Chloride 111 mmol/L (98-107); Estimated Glomerular Filt Rate > 60.0 mL/min (>60); Glucose 327 mg/dL (70-100); HEMOLYSIS 15 (0-50); Magnesium 1.7 mg/dL (1.6-2.3); Phosphorous 1.6 mg/dL (2.5-4.5); Sodium 135 mmol/L (137-145)
[2019-08-17] MEDS: INSULIN GLARGINE 100 UNIT/ML 3ML PEN 10 UNIT SUBCUT (10:50)
--- NOTE | 2019-08-17 11:05 | DIET.PN ---
Dietary Progress Note Assessment: 39y F admitted for DKA with A1c of 10.6, BG of 359, pH 7.18, pCO2 8, and ketones 9.75. A1c of 10.6 indicates average BG of 250 over the past 10w. Pt dx c T1D in 1994, went through DM education last when insulin pump was installed. Pt last known A1c was < 7. Had pump removed r/t toddler daughter pulling out lines. Pt has gone through several PCPs in last couple years, but all have relocated. Last saw Kerrie Sousa at [facility] in , dissapointed she left. Pt lives c daughter and boyfriend, this poses barrier as BF doesn't know a lot about DM and often eats the DM friendly foods in the house. Pt's 3y daughter likes fruits and veggies, refuses juice (don't keep in house), but is a picky eater who mostly relies on mac & cheese and pizza which are high in CHO. Pt often waits too long to eat and relies on quick items, eating late in the day. Pt states she knows what to do, but her motivation to stay on track waxes and wanes. Is appreciative of meal and snack idea handout. HT: 175.2cm WT: 79kg BMI: 25.7 Labs:A1c of 10.6, BG of 359, pH 7.18, pCO2 8, and ketones 9.75 Nutrition Diagnosis: Interventions: 1. Discussed option of initiating care with Lars's replacement KARSTEN Raman at [facility]. 2. Discussed barriers to eating to manage BG focusing on quick meals and snacks c good sources of PRO and healthy fat. Provided handout on the topic. 3. Discussed completing DSME at with boyfriend present so he can be supportive of pt's health. Pt resistant to this option. Diet Order: CCD 2 Monitoring/Evaluations: as needed, pt d/c likely today
[2019-08-17 11:23] LABS: Blood Urea Nitrogen 6 mg/dL (7-17); Calcium 8.5 mg/dL (8.4-10.2); Carbon Dioxide 12 mmol/L (22-32); Chloride 113 mmol/L (98-107); Estimated Glomerular Filt Rate > 60.0 mL/min (>60); Glucose 142 mg/dL (70-100); HEMOLYSIS < 15 (0-50); Potassium 3.1 mmol/L (3.4-5.1); Sodium 139 mmol/L (137-145)
--- NOTE | 2019-08-17 11:55 | CM.DANOTE ---
DCP Assessment: EMR Reviewed: Patient is a 39 yr old female admitted to ICU for DKA. Patient is a type 1 diabetic and has had Dm for 25 years. CM/RN met with the patient at the bedside and explained CM/RN role. Patient was alert and oriented x3 during CM visit. patient currently lives in [place] with her 3 yr old daughter and her boyfriend Carolann Boland. Patient doesn't currently have a PCP but CM/RN spoke with patient about possible options for PCP. Patient did see LEN Sousa at [facility]. CM/RN talked with Patient about working with PA césar Raman. Patient agreed and patients RN is calling to schedule a follow up appt for sometime this week. Cm/RN asked patient about a insuline pump. Patient stated she has one but has stopped wearing it because when her daughter was younger she would pull on it and pull out the lines. Patient plans on meeting with a provider later this week that way she can get the needed supplies to start back on her pump. CM/Rn also recommended patient request a referral to an steam turbine operator to help patient manage her type 1 DM. CM?RN discussed patients eating habits. Patient stated she understands what to do and how to eat but stated I just get tired of always having to monitor everything. Patient also stated it was difficult to eat well CM/Rn spoke with Dietition Sheridan who will go to talk with patient and give information to patient about diet options for the patient. I: Jos 2nd: Self pay Plan: D/C home with significant other and daughter when medically stable. Patient stated agreement to attend PCP appointment that patients RN is setting up to: establish care, get insulin pump equipment, medications and Endocrinology referral. P
[2019-08-17] MEDS: INSULIN ASPART 100 UNIT/ML INSULN PEN SUBCUT (12:32)
[2019-08-17] MEDS: INSULIN ASPART 100 UNIT/ML INSULN PEN 6 UNIT SUBCUT (12:32)
[2019-08-17] MEDS: POTASSIUM CHLORIDE 20 MEQ TAB 40 MEQ PO (13:41)
--- NOTE | 2019-08-17 13:52 | P.DS_ITS ---
History of Present Illness History of Present Illness Date Patient Seen: 08/16/19 Chief complaint: ketoacidosis Narrative: Written by Maxi SHELLEY: The patient is a 39-year-old female with PMH of DM 1T (w/complications of diabetic retinopathy), hypothyroidism, dyslipidemia, and migraines. Patient presented out of concern for diabetic ketoacidosis. She has had DKA in the past, last 4 years ago (by report). Reports a 4 day history of generalized mal aise, nausea, and vomiting (1-2x per day). Symptoms have been persistent. Associated symptoms include a weakness, headache, palpitations, and difficulty breathing. Over the past today she has developed a headache, localized to the frontal aspect of the head. Admits to taking 600 mg of ibuprofen 3 to 4 times a day. Today (08/16), prior to ED presentation, was having difficulty breathing and felt lightheaded when trying to ambulate. Patient denies recent illness, fever or chills. Denies chest pain and syncopal events. Denies dyspnea with exertion, peripheral edema, and orthopnea. Denies PND. Denies symptoms of URI and UTI. Denies change in weight. Denies abdominal pain, diarrhea, melena, and hematochezia. Recently experiencing work related stressors. Also, patient and significant other, boyfriend [place], verbalized stressors related to parenthood and childrearing. Patient was diagnosed with DM 1T in 1994. Outside of the hospital patient manages her diabetes with Humalog only, per sliding scale. She was on an insulin pump until 2016. Stopped using the pump after her child was born, as the was pulling on the lines of the pump and causing pump malfunction. It has been a number of years since her A1c was checked, last record of 6.9% (07/2017). Most recent eye exam (09/2017) showed presence of mild diabetic retinopathy. Patient was previously on lisinopril for renal protective effects. She denies prior current history of hypertension. At present time she does not see an sand slinger, however has seen one in the past. Currently her insulin is being being prescribed by Kerrie DOSHI in [place]. Records show that she was seeing Dr. Joselyn Hernandez in the past. According to the patient, this provider is no longer in the area and she has not established care with a new PCP. Records show history of dyslipidemia. She was previously on lovastatin. ED Presentation & Work-Up VS at triage, 08/16 14:30. T 97.3F BP 175/54 HR 122 RR 23 SpO2 100% on RA. GCS 15. Head pain on presentation, 05/24. Improvement in VS and headache w/ IVF hydration. EKG, 08/16/19 14:41. ST (v-rate 121) w/ short GA interval (113 ms). Non-specific T-waves. QTc 461. Increased T wave amplitude V2 V3, not overtly peaked. ABG, 08/16 at 15:02... pH 7.18 pCO2 9.0 pO2 131 HCO3 3 Base Excess -25 Serum Ketones 9.75 Lactate 3.1 () --> 2.0 (1952) WBC 16.4 PCT 0.18 CBC 08/16, 14:30... RBC 5.11 Hgb 15.5 Hct 49.0 Plt 584 Labs 08/16, 14:55... Na 142 K 4.1 Cl 108 Ca 9.3 Glu 359 CO2 8 BUN 11 Cr 0.9 T.Bili 0.4 AST 36 ALT 28 ALK PHOS 224 Lipase 61 TSH 15.6 Labs 08/16, 19:06... Na 140 K 3.8 Cl 113 Ca 8.1 Glu 154 CO2 14 BUN 9 Cr 0.6 UA (1909) protein (2+), glucose 1+, ketones 3+, bilirubin 2+ ictotest positive Discharge Providers Provider Date of admission: 08/16/19 16:45 Discharge Date: 08/17/19 Discharge provider: Denita Huitron Hospital Course Discharge Diagnosis: 1. Acute DKA, present on admission. Resolved. 2. Diabetes mellitus type I, chronic, present on admission. Stable and uncontrolled. 3. Hypothyroidism, chronic, present on admission. Active. 4. Headache, acute, present on admission. Resolved. 5. Dyslipidemia, present on admission. Stable. Hospital Course: Catina Moya is a 39-year-old female with Ppast medical history significant for diabetes mellitus type I with complication of diabetic retinopathy, hyp othyroidism, dyslipidemia, and migraines who presented out of concern for diabetic ketoacidosis. 1. Acute DKA, present on admission. Resolved. -On admission ABG pH 7.18, pCO2 8. Ketones 9.75. -Baseline EKG. ST with short GA. Non-specific T-waves. Increased T-wave amplitude V2 V3, not overtly peaked. QTc 461. -Continued to monitor on telemetry. -Initiated DKA protocol with insulin gtt, fluid replacement with normal saline then transitioned to 0.45% normal saline and then D5 0.45% normal saline until blood glucose was less than 250. Monitored blood glucose and electrolytes every 4 hours until anion gap closed and repleted as necessary. Transitioned off insulin gtt and restarted home regimen. Continued lantus increased from 22 to 25 units at bedtime and nutritional insulin with humalog based on sliding scale. -Mg 2.0. Phos low at 1.6. UDS negative. -Continued supportive care: analgesics and anti-emetics available as needed. 2. Diabetes mellitus type I, chronic, present on admission. Stable and uncontrolled. -Hemoglobin A1C 10.6%. -Known complications of diabetic retinopathy (09/2017) -Encouraged annual eye exam and foot checks -Encouraged patient to establish care with endocrinology, at least to see annually. -Consider checking for proteinuria once DKA resolved, previously on lisinopril for dianna-protective effects, but has not been taking for a while -Restarted home insulin regimen after treagted DKA as above. 3. Hypothyroidism, chronic, present on admission. Active. -TSH elevated at 15.60. -Continued levothyroxine 150 mcg daily. Did not adjust dose as patient was acutely ill and recommended outpatient follow-up of thyroid function in next 1-2 weeks per PCP and possibly endocrinology in future. 4. Headache, acute, present on admission. Resolved. -In the setting of acute illness / dehydration. -Continued IV fluids until adequately hydrated as above and then discontinued. -Ordered analgesics available as needed. 5. Dyslipidemia, present on admission. Stable. -Previously on a statin,. -Fasting lipid panel demonstrated:Total cholesterol 173, Triglycerides as expected elevated at 328, LDL 77, and HDL low at 30. -Continue to implement lifestyle modification with diet, exercise, and control diabetes. Exam Vital Signs (past 8 hours): - 08/17/19 06:00 08/17/19 07:00 08/17/19 08:00 Temperature 98.9 F 98.6 F Pulse Rate 86 95 H 98 H Respiratory Rate 18 15 20 Blood Pressure 113/54 L 102/40 L 116/52 L Pulse Oximetry 99 99 98 08/17/19 10:00 08/17/19 11:00 08/17/19 12:00 Temperature Pulse Rate 95 H 97 H 94 H Respiratory Rate 20 18 18 Blood Pressure 127/57 L 127/67 114/59 L Pulse Oximetry 99 100 100 Oxygen Delivery Method Room Air Oxygen Flow Rate 0 Narrative Exam Narrative: General: Middle aged female lying in bed and in no acute distress, well- developed, well-nourished, appropriately interactive. HEENT: Normocephalic, atraumatic. External ears without defect. Pupils equal, round, and reactive to light. Anicteric sclerae, moist conjunctivae, and no lid lag. Oropharynx free of erythema and cobble stoning with moist mucosa. Neck: Supple with full range of motion. No jugular venous distension. No lymphadenopathy or thyromegaly. Cardiovascular: Regular rhythm, mild tachycardia, without murmurs, rubs, or gallops appreciated Pulmonary: Clear to auscultation bilaterally without crackles, wheezes, or rhonchi. Normal respiratory effort with no use of accessory muscles. Abdomen: Soft, bowel sounds present, nontender, nondistended. No hepatosplenomegaly or masses appreciated. Extremities: No clubbing, cyanosis, or edema. Skin: Normal temperature, turgor, and texture; no rash, ulcers, or subcutaneous nodules appreciated. Neurological: Cranial nerves grossly intact. Psychiatric: Normal mood and affect. Alert and oriented to person, place, and time. Objective Labs Result Diagrams: 08/17/19 08:15 08/17/19 10:35 Labs: Laboratory Results - last 24 hr 08/16/19 08/16/19 08/16/19 14:30 14:30 14:55 WBC 16.4 H RBC 5.11 Hgb 15.5 Hct 49.0 H MCV 96.0 MCH 30.3 MCHC 31.6 RDW 14.6 Plt Count 584 H Neut % (Auto) 62.0 Lymph % (Auto) 29.1 Love % (Auto) 5.4 Eos % (Auto) 2.2 Baso % (Auto) 1.3 Neut # (Auto) 36225 H Lymph # (Auto) 4800 H Love # (Auto) 900 Eos # (Auto) 400 Baso # (Auto) 200 H ABG pH ABG pCO2 ABG pO2 ABG HCO3 ABG Total CO2 ABG O2 Saturation ABG Base Excess FiO2 Sodium Potassium Chloride Carbon Dioxide BUN Creatinine Estimated GFR BUN/Creatinine Ratio Glucose Hemoglobin A1c Lactate 3.1 H Calcium Phosphorus Magnesium Total Bilirubin AST ALT Alkaline Phosphatase Total Protein Albumin Globulin Albumin/Globulin Ratio Triglycerides Cholesterol LDL Cholesterol, Calc HDL Cholesterol Lipase Procalcitonin 0.18 TSH Serum , Qual Negative Urine Color Urine Appearance Urine pH Ur Specific [place] Urine Protein Urine Glucose (UA) Urine Ketones Urine Occult Blood Urine Nitrate Urine Bilirubin Urine Ictotest Urine Urobilinogen Ur Leukocyte Esterase Urine RBC Urine WBC Ur Squamous Epith Cells Urine Bacteria Granular Casts Ur Culture Indicated? Nasal Screen MRSA (PCR) U Morph 300 ng/mL cutoff Ur Oxycodone Screen Urine Methadone Screen Ur Barbiturates Screen U Tricyclic Antidepress Ur Phencyclidine Scrn Ur Amphetamines Screen U Methamphetamines Scrn Ur MDMA Scrn (Ecstasy) U Benzodiazepines Scrn Urine Cocaine Screen U Marijuana (THC) Screen Ethyl Alcohol Ketones Chlamy pneumoniae PCR Adenovirus (PCR) B.parapertussis DNA PCR Coronavirus OC43 (PCR) Coronavirus HKU1 (PCR) Coronavirus 229E (PCR) Coronavirus NL63 (PCR) Human Metapneumovir PCR Influenza Type A (PCR) Influenza Type B (PCR) M. pneumoniae (PCR) Parainfluenza 1 (PCR) Parainfluenza 2 (PCR) Parainfluenza 3 (PCR) Parainfluenza 4 (PCR) RSV (PCR) Entero/Rhino (PCR) 08/16/19 08/16/19 08/16/19 14:55 14:55 14:55 WBC RBC Hgb Hct MCV MCH MCHC RDW Plt Count Neut % (Auto) Lymph % (Auto) Love % (Auto) Eos % (Auto) Baso % (Auto) Neut # (Auto) Lymph # (Auto) Love # (Auto) Eos # (Auto) Baso # (Auto) ABG pH ABG pCO2 ABG pO2 ABG HCO3 ABG Total CO2 ABG O2 Saturation ABG Base Excess FiO2 Sodium 142 Potassium 4.1 Chloride 108 H Carbon Dioxide 8 L* BUN 11 Creatinine 0.90 Estimated GFR > 60.0 BUN/Creatinine Ratio 12.2 Glucose 359 H Hemoglobin A1c 10.6 H Lactate Calcium 9.3 Phosphorus 3.5 Magnesium 2.1 Total Bilirubin 0.4 AST 36 ALT 28 Alkaline Phosphatase 224 H Total Protein 7.8 Albumin 4.3 Globulin 3.5 Albumin/Globulin Ratio 1.2 Triglycerides Cholesterol LDL Cholesterol, Calc HDL Cholesterol Lipase 61 Procalcitonin TSH 15.60 H Serum , Qual Urine Color Urine Appearance Urine pH Ur Specific [place] Urine Protein Urine Glucose (UA) Urine Ketones Urine Occult Blood Urine Nitrate Urine Bilirubin Urine Ictotest Urine Urobilinogen Ur Leukocyte Esterase Urine RBC Urine WBC Ur Squamous Epith Cells Urine Bacteria Granular Casts Ur Culture Indicated? Nasal Screen MRSA (PCR) U Morph 300 ng/mL cutoff Ur Oxycodone Screen Urine Methadone Screen Ur Barbiturates Screen U Tricyclic Antidepress Ur Phencyclidine Scrn Ur Amphetamines Screen U Methamphetamines Scrn Ur MDMA Scrn (Ecstasy) U Benzodiazepines Scrn Urine Cocaine Screen U Marijuana (THC) Screen Ethyl Alcohol < 10 Ketones 9.75 H Chlamy pneumoniae PCR Adenovirus (PCR) B.parapertussis DNA PCR Coronavirus OC43 (PCR) Coronavirus HKU1 (PCR) Coronavirus 229E (PCR) Coronavirus NL63 (PCR) Human Metapneumovir PCR Influenza Type A (PCR) Influenza Type B (PCR) M. pneumoniae (PCR) Parainfluenza 1 (PCR) Parainfluenza 2 (PCR) Parainfluenza 3 (PCR) Parainfluenza 4 (PCR) RSV (PCR) Entero/Rhino (PCR) 08/16/19 08/16/19 08/16/19 15:02 17:00 17:50 WBC RBC Hgb Hct MCV MCH MCHC RDW Plt Count Neut % (Auto) Lymph % (Auto) Love % (Auto) Eos % (Auto) Baso % (Auto) Neut # (Auto) Lymph # (Auto) Love # (Auto) Eos # (Auto) Baso # (Auto) ABG pH 7.18 L* ABG pCO2 9.0 L* ABG pO2 131 H ABG HCO3 3 L ABG Total CO2 < 5 L ABG O2 Saturation 98 ABG Base Excess -25.0 L FiO2 0.21 Sodium Potassium Chloride Carbon Dioxide BUN Creatinine Estimated GFR BUN/Creatinine Ratio Glucose Hemoglobin A1c Lactate Calcium Phosphorus Magnesium Total Bilirubin AST ALT Alkaline Phosphatase Total Protein Albumin Globulin Albumin/Globulin Ratio Triglycerides Cholesterol LDL Cholesterol, Calc HDL Cholesterol Lipase Procalcitonin TSH Serum , Qual Urine Color Urine Appearance Urine pH Ur Specific [place] Urine Protein Urine Glucose (UA) Urine Ketones Urine Occult Blood Urine Nitrate Urine Bilirubin Urine Ictotest Urine Urobilinogen Ur Leukocyte Esterase Urine RBC Urine WBC Ur Squamous Epith Cells Urine Bacteria Granular Casts Ur Culture Indicated? Nasal Screen MRSA (PCR) Negative for mrsa U Morph 300 ng/mL cutoff Ur Oxycodone Screen Urine Methadone Screen Ur Barbiturates Screen U Tricyclic Antidepress Ur Phencyclidine Scrn Ur Amphetamines Screen U Methamphetamines Scrn Ur MDMA Scrn (Ecstasy) U Benzodiazepines Scrn Urine Cocaine Screen U Marijuana (THC) Screen Ethyl Alcohol Ketones Chlamy pneumoniae PCR Not detected Adenovirus (PCR) Not detected B.parapertussis DNA PCR Not detected Coronavirus OC43 (PCR) Not detected Coronavirus HKU1 (PCR) Not detected Coronavirus 229E (PCR) Not detected Coronavirus NL63 (PCR) Not detected Human Metapneumovir PCR Not detected Influenza Type A (PCR) Not detected Influenza Type B (PCR) Not detected M. pneumoniae (PCR) Not detected Parainfluenza 1 (PCR) Not detected Parainfluenza 2 (PCR) Not detected Parainfluenza 3 (PCR) Not detected Parainfluenza 4 (PCR) Not detected RSV (PCR) Not detected Entero/Rhino (PCR) Not detected 08/16/19 08/16/19 08/16/19 19:06 19:06 19:06 WBC RBC Hgb Hct MCV MCH MCHC RDW Plt Count Neut % (Auto) Lymph % (Auto) Love % (Auto) Eos % (Auto) Baso % (Auto) Neut # (Auto) Lymph # (Auto) Love # (Auto) Eos # (Auto) Baso # (Auto) ABG pH ABG pCO2 ABG pO2 ABG HCO3 ABG Total CO2 ABG O2 Saturation ABG Base Excess FiO2 Sodium 140 Potassium 3.8 Chloride 113 H Carbon Dioxide 14 L BUN 9 Creatinine 0.60 Estimated GFR > 60.0 BUN/Creatinine Ratio 15.0 Glucose 154 H D Hemoglobin A1c Lactate Calcium 8.1 L Phosphorus 1.6 L D Magnesium 2.0 Total Bilirubin AST ALT Alkaline Phosphatase Total Protein Albumin Globulin Albumin/Globulin Ratio Triglycerides Cholesterol LDL Cholesterol, Calc HDL Cholesterol Lipase Procalcitonin TSH Serum , Qual Urine Color Urine Appearance Urine pH Ur Specific [place] Urine Protein Urine Glucose (UA) Urine Ketones Urine Occult Blood Urine Nitrate Urine Bilirubin Urine Ictotest Urine Urobilinogen Ur Leukocyte Esterase Urine RBC Urine WBC Ur Squamous Epith Cells Urine Bacteria Granular Casts Ur Culture Indicated? Nasal Screen MRSA (PCR) U Morph 300 ng/mL cutoff Ur Oxycodone Screen Urine Methadone Screen Ur Barbiturates Screen U Tricyclic Antidepress Ur Phencyclidine Scrn Ur Amphetamines Screen U Methamphetamines Scrn Ur MDMA Scrn (Ecstasy) U Benzodiazepines Scrn Urine Cocaine Screen U Marijuana (THC) Screen Ethyl Alcohol Ketones Chlamy pneumoniae PCR Adenovirus (PCR) B.parapertussis DNA PCR Coronavirus OC43 (PCR) Coronavirus HKU1 (PCR) Coronavirus 229E (PCR) Coronavirus NL63 (PCR) Human Metapneumovir PCR Influenza Type A (PCR) Influenza Type B (PCR) M. pneumoniae (PCR) Parainfluenza 1 (PCR) Parainfluenza 2 (PCR) Parainfluenza 3 (PCR) Parainfluenza 4 (PCR) RSV (PCR) Entero/Rhino (PCR) 08/16/19 08/16/19 08/16/19 19:09 19:09 19:53 WBC RBC Hgb Hct MCV MCH MCHC RDW Plt Count Neut % (Auto) Lymph % (Auto) Love % (Auto) Eos % (Auto) Baso % (Auto) Neut # (Auto) Lymph # (Auto) Love # (Auto) Eos # (Auto) Baso # (Auto) ABG pH ABG pCO2 ABG pO2 ABG HCO3 ABG Total CO2 ABG O2 Saturation ABG Base Excess FiO2 Sodium Potassium Chloride Carbon Dioxide BUN Creatinine Estimated GFR BUN/Creatinine Ratio Glucose Hemoglobin A1c Lactate 2.0 Calcium Phosphorus Magnesium Total Bilirubin AST ALT Alkaline Phosphatase Total Protein Albumin Globulin Albumin/Globulin Ratio Triglycerides Cholesterol LDL Cholesterol, Calc HDL Cholesterol Lipase Procalcitonin TSH Serum , Qual Urine Color Yellow Urine Appearance Clear Urine pH 5.5 Ur Specific [place] 1.025 Urine Protein 2+ H Urine Glucose (UA) 1+ H Urine Ketones 3+ H Urine Occult Blood Trace-lysed Urine Nitrate Negative Urine Bilirubin 2+ H Urine Ictotest Positive H Urine Urobilinogen 0.2 Ur Leukocyte Esterase Negative Urine RBC None seen Urine WBC None seen Ur Squamous Epith Cells 1-5 /hpf Urine Bacteria None seen Granular Casts 5-10/lpf Ur Culture Indicated? Culture not indicate Nasal Screen MRSA (PCR) U Morph 300 ng/mL cutoff Negative Ur Oxycodone Screen Negative Urine Methadone Screen Negative Ur Barbiturates Screen Negative U Tricyclic Antidepress Negative Ur Phencyclidine Scrn Negative Ur Amphetamines Screen Negative U Methamphetamines Scrn Negative Ur MDMA Scrn (Ecstasy) Negative U Benzodiazepines Scrn Negative Urine Cocaine Screen Negative U Marijuana (THC) Screen Negative Ethyl Alcohol Ketones Chlamy pneumoniae PCR Adenovirus (PCR) B.parapertussis DNA PCR Coronavirus OC43 (PCR) Coronavirus HKU1 (PCR) Coronavirus 229E (PCR) Coronavirus NL63 (PCR) Human Metapneumovir PCR Influenza Type A (PCR) Influenza Type B (PCR) M. pneumoniae (PCR) Parainfluenza 1 (PCR) Parainfluenza 2 (PCR) Parainfluenza 3 (PCR) Parainfluenza 4 (PCR) RSV (PCR) Entero/Rhino (PCR) 08/17/19 08/17/19 08/17/19 00:13 00:13 04:09 WBC 12.9 H RBC 3.92 L Hgb 11.6 L Hct 36.2 MCV 92.5 D MCH 29.6 MCHC 32.0 RDW 14.6 Plt Count 372 Neut % (Auto) 58.3 Lymph % (Auto) 28.5 Love % (Auto) 10.1 Eos % (Auto) 2.1 Baso % (Auto) 1.0 Neut # (Auto) 7500 H Lymph # (Auto) 3700 Love # (Auto) 1300 H Eos # (Auto) 300 Baso # (Auto) 100 ABG pH ABG pCO2 ABG pO2 ABG HCO3 ABG Total CO2 ABG O2 Saturation ABG Base Excess FiO2 Sodium 136 L 135 L Potassium 4.2 4.2 Chloride 112 H 112 H Carbon Dioxide 15 L 14 L BUN 8 7 Creatinine 0.60 0.60 Estimated GFR > 60.0 > 60.0 BUN/Creatinine Ratio 13.3 11.7 Glucose 247 H 196 H Hemoglobin A1c Lactate Calcium 8.1 L 8.3 L Phosphorus 2.0 L 1.1 L* Magnesium 1.8 1.9 Total Bilirubin AST ALT Alkaline Phosphatase Total Protein Albumin Globulin Albumin/Globulin Ratio Triglycerides Cholesterol LDL Cholesterol, Calc HDL Cholesterol Lipase Procalcitonin TSH Serum , Qual Urine Color Urine Appearance Urine pH Ur Specific [place] Urine Protein Urine Glucose (UA) Urine Ketones Urine Occult Blood Urine Nitrate Urine Bilirubin Urine Ictotest Urine Urobilinogen Ur Leukocyte Esterase Urine RBC Urine WBC Ur Squamous Epith Cells Urine Bacteria Granular Casts Ur Culture Indicated? Nasal Screen MRSA (PCR) U Morph 300 ng/mL cutoff Ur Oxycodone Screen Urine Methadone Screen Ur Barbiturates Screen U Tricyclic Antidepress Ur Phencyclidine Scrn Ur Amphetamines Screen U Methamphetamines Scrn Ur MDMA Scrn (Ecstasy) U Benzodiazepines Scrn Urine Cocaine Screen U Marijuana (THC) Screen Ethyl Alcohol Ketones Chlamy pneumoniae PCR Adenovirus (PCR) B.parapertussis DNA PCR Coronavirus OC43 (PCR) Coronavirus HKU1 (PCR) Coronavirus 229E (PCR) Coronavirus NL63 (PCR) Human Metapneumovir PCR Influenza Type A (PCR) Influenza Type B (PCR) M. pneumoniae (PCR) Parainfluenza 1 (PCR) Parainfluenza 2 (PCR) Parainfluenza 3 (PCR) Parainfluenza 4 (PCR) RSV (PCR) Entero/Rhino (PCR) 08/17/19 08/17/19 08/17/19 04:09 04:09 08:15 WBC 13.2 H RBC 3.68 L Hgb 11.0 L Hct 34.0 L MCV 92.6 MCH 30.0 MCHC 32.4 RDW 15.0 H Plt Count 349 Neut % (Auto) 55.8 Lymph % (Auto) 30.0 Love % (Auto) 11.3 Eos % (Auto) 2.3 Baso % (Auto) 0.6 Neut # (Auto) 7400 H Lymph # (Auto) 4000 Love # (Auto) 1500 H Eos # (Auto) 300 Baso # (Auto) 100 ABG pH ABG pCO2 ABG pO2 ABG HCO3 ABG Total CO2 ABG O2 Saturation ABG Base Excess FiO2 Sodium 135 L Potassium 4.0 Chloride 111 H Carbon Dioxide 13 L BUN 6 L Creatinine 0.50 L Estimated GFR > 60.0 BUN/Creatinine Ratio 12.0 Glucose 327 H D Hemoglobin A1c Lactate Calcium 8.4 Phosphorus 1.6 L Magnesium 1.7 Total Bilirubin AST ALT Alkaline Phosphatase Total Protein Albumin Globulin Albumin/Globulin Ratio Triglycerides 328 H Cholesterol 173 LDL Cholesterol, Calc 77 HDL Cholesterol 30 L Lipase Procalcitonin TSH Serum , Qual Urine Color Urine Appearance Urine pH Ur Specific [place] Urine Protein Urine Glucose (UA) Urine Ketones Urine Occult Blood Urine Nitrate Urine Bilirubin Urine Ictotest Urine Urobilinogen Ur Leukocyte Esterase Urine RBC Urine WBC Ur Squamous Epith Cells Urine Bacteria Granular Casts Ur Culture Indicated? Nasal Screen MRSA (PCR) U Morph 300 ng/mL cutoff Ur Oxycodone Screen Urine Methadone Screen Ur Barbiturates Screen U Tricyclic Antidepress Ur Phencyclidine Scrn Ur Amphetamines Screen U Methamphetamines Scrn Ur MDMA Scrn (Ecstasy) U Benzodiazepines Scrn Urine Cocaine Screen U Marijuana (THC) Screen Ethyl Alcohol Ketones Chlamy pneumoniae PCR Adenovirus (PCR) B.parapertussis DNA PCR Coronavirus OC43 (PCR) Coronavirus HKU1 (PCR) Coronavirus 229E (PCR) Coronavirus NL63 (PCR) Human Metapneumovir PCR Influenza Type A (PCR) Influenza Type B (PCR) M. pneumoniae (PCR) Parainfluenza 1 (PCR) Parainfluenza 2 (PCR) Parainfluenza 3 (PCR) Parainfluenza 4 (PCR) RSV (PCR) Entero/Rhino (PCR) 08/17/19 08/17/19 08/17/19 08:15 08:25 10:35 WBC 11.4 H RBC 3.73 L Hgb 11.3 L Hct 34.6 L MCV 92.6 MCH 30.1 MCHC 32.5 RDW 14.9 H Plt Count 343 Neut % (Auto) 58.2 Lymph % (Auto) 26.7 Love % (Auto) 10.2 Eos % (Auto) 3.8 Baso % (Auto) 1.1 Neut # (Auto) 6600 Lymph # (Auto) 3000 Love # (Auto) 1200 H Eos # (Auto) 400 Baso # (Auto) 100 ABG pH 7.34 L ABG pCO2 20.5 L* ABG pO2 54 L ABG HCO3 11 L ABG Total CO2 12 L ABG O2 Saturation 87 L ABG Base Excess -15.0 L FiO2 0.21 Sodium 139 Potassium 3.1 L Chloride 113 H Carbon Dioxide 12 L BUN 6 L Creatinine 0.60 Estimated GFR > 60.0 BUN/Creatinine Ratio 10.0 Glucose 142 H D Hemoglobin A1c Lactate Calcium 8.5 Phosphorus Magnesium Total Bilirubin AST ALT Alkaline Phosphatase Total Protein Albumin Globulin Albumin/Globulin Ratio Triglycerides Cholesterol LDL Cholesterol, Calc HDL Cholesterol Lipase Procalcitonin TSH Serum , Qual Urine Color Urine Appearance Urine pH Ur Specific [place] Urine Protein Urine Glucose (UA) Urine Ketones Urine Occult Blood Urine Nitrate Urine Bilirubin Urine Ictotest Urine Urobilinogen Ur Leukocyte Esterase Urine RBC Urine WBC Ur Squamous Epith Cells Urine Bacteria Granular Casts Ur Culture Indicated? Nasal Screen MRSA (PCR) U Morph 300 ng/mL cutoff Ur Oxycodone Screen Urine Methadone Screen Ur Barbiturates Screen U Tricyclic Antidepress Ur Phencyclidine Scrn Ur Amphetamines Screen U Methamphetamines Scrn Ur MDMA Scrn (Ecstasy) U Benzodiazepines Scrn Urine Cocaine Screen U Marijuana (THC) Screen Ethyl Alcohol Ketones Chlamy pneumoniae PCR Adenovirus (PCR) B.parapertussis DNA PCR Coronavirus OC43 (PCR) Coronavirus HKU1 (PCR) Coronavirus 229E (PCR) Coronavirus NL63 (PCR) Human Metapneumovir PCR Influenza Type A (PCR) Influenza Type B (PCR) M. pneumoniae (PCR) Parainfluenza 1 (PCR) Parainfluenza 2 (PCR) Parainfluenza 3 (PCR) Parainfluenza 4 (PCR) RSV (PCR) Entero/Rhino (PCR) Discharge Plan Discharge Plan Patient Disposition: Home Discharge comment: You are being discharged home. You went into DKA likely due to poor diet and no long-acting coverage with insulin. You have been prescribed Lantus 25 units daily at bedtime for long-acting coverage. Please continue nutritional and correctional insulin with Humalog as you have been doing. Please follow-up with your primary care provider at your scheduled appointment regarding your hospitalization and referral to endocrinology. Please have lab work done prior to your appointment to check your potassium level and your thyr oid function and have your PCP follow this up at your appointment. Highly recommend reinstitution of your insulin pump for diabetic management in the near future. Please follow-up with Diabetic Education. Continue biannual eye and foot checks. Please keep a blood glucose log with at least 4 measurements per day including fasting blood glucose 1st thing in the morning and bring this with you to your doctor's appointments. Discharge orders & Medications Prescriptions: New Lantus Solostar U-100 Insulin 100 unit/mL (3 mL) Insulin Pen 25 unit subcut BEDTIME Qty: 15 RF: 0 Continued levothyroxine 150 mcg Tablet 150 mcg PO DAILY RF: 0 insulin lispro [Humalog U-100 Insulin] 100 UNIT/1 ML solution 0 unit INJ SEE INSTRUCTIONS RF: 0 Discontinued ibuprofen 200 mg Tablet 600 mg PO PRN PRN (Reason: Headache) RF: 0 Other Ambulatory Orders: Basic Metabolic Panel (Stat) Timeframe: 3 Days Facility: [facility] - Location: Laboratory Ordered By: Denita Fox Free T4, Direct Thyroxine (Stat) Timeframe: 3 Days Facility: [facility] - Location: Laboratory Ordered By: Denita Fox Thyroid Stimulating Hormone (Stat) Timeframe: 3 Days Facility: [facility] - Location: Laboratory Ordered By: Denita Fox Follow up/Referrals: [facility] [Provider Group] - 08/19/19 3:40 pm (Follow-up appointment scheduled with Danisha HARRINGTON on Thursday, August 19, 2019 at 3:40 pm. ) Diet/Activity/Treatments Diet: Diet as Tolerated and Carb-consistent/Diabetic Activity: Activity as tolerated Visit Report/Discharge Packet Instructions: DI for Diabetic Ketoacidosis, Insulin Glargine (By injection) Discharges patient from system. Discharge Date/Time: 08/17/19 14:30 Quality VTE Deep Vein Thrombosis/Pulmonary Embolism Present on Admission: No
== END 2019-08-17 14:30 | disposition home or self-care (01) | DRG 639 ==
LOC: ED 15:11 → ICU 08-17 08:40
PROVIDERS: Nurse Practitioner Gerontology; Admitting Provider Internal Medicine; Emergency Provider Emergency Medicine; Visit Provider Internal Medicine
DX: E10.10 Type 1 diabetes mellitus with ketoacidosis without coma (principal); E10.319 Type 1 diabetes mellitus with unspecified diabetic retinopathy without macular edema; E03.9 Hypothyroidism, unspecified; E86.0 Dehydration; E78.5 Hyperlipidemia, unspecified
CPT/HCPCS: 36415; 36600; 71045; 80048; 80053; 80061; 80305; 80320; 81001; 82009; 82805; 82962; 83036; 83605; 83690; 83735; 84100; 84145; 84443; 84703; 85025; 87633; 87797; 93005; 96361; 96365; 99283; 99291; J1650; J3480

== ENCOUNTER → 2019-09-08 13:28 | Outpatient (CLI) | payer OTHER, SELFPAY ==
[2019-08-16 17:26] VITALS: BMI 25.7
== END ==
PROVIDERS: Visit Provider Nurse Practitioner
DX: L02.91 Cutaneous abscess, unspecified (principal)
CPT/HCPCS: 87070; 87075; 87186; 87205

== ENCOUNTER 2019-09-09 15:33 | Emergency (ER) | payer OTHER, SELFPAY ==
[2019-08-16 17:26] VITALS: BMI 25.7
[2019-09-09 15:35] VITALS: PULSE 112; RESP 24; TEMP 38.3; O2SAT 100
[2019-09-09 16:15] LABS: Add Manual Diff / Slide Review NO; Basophils Absolute Auto 100 /uL (0-100); Basophils Percent Auto 0.6 % (0-2); Eosinophils Absolute Auto 400 /uL (0-450); Eosinophils Percent Auto 3.2 % (2-4); Hematocrit 35.9 % (36-46); Hemoglobin 11.9 g/dL (12.0-16.0); Lymphocytes Absolute Auto 2100 /uL (1100-4500); Mean Corpuscular Hemoglobin 30.3 PG (26-34); Mean Corpuscular Volume 91.7 fL (80-100); Monocytes Absolute Auto 1000 /uL (0-900); Monocytes Percent Auto 8.3 % (3-14); Neutrophils Absolute Auto 8600 /uL (1500-7000); Neutrophils Percent Auto 70.9 % (50-75); Platelet Count 417 X10^3/uL (150-400); Red Blood Cell Count 3.92 X10^6/uL (4.0-5.2); Red Cell Distribution Width 14.9 % (11.6-14.8); White Blood Cell Count 12.2 X10^3/uL (4.5-11.0)
[2019-09-09 16:26] LABS: INR 0.9 (0.9-1.3); Prothrombin Time 10.1 SECONDS (10.1-12.7)
[2019-09-09 16:28] LABS: Alanine Aminotransferase 22 IU/L (<35); Albumin Globulin Ratio 1.2 (1.0-2.8); Alkaline Phosphatase 188 U/L (38-126); Aspartate Aminotransferase 21 IU/L (14-36); Bilirubin Total 0.5 mg/dL (0.2-1.3); Blood Urea Nitrogen 9 mg/dL (7-17); Calcium 9.3 mg/dL (8.4-10.2); Carbon Dioxide 26 mmol/L (22-32); Chloride 102 mmol/L (98-107); Estimated Glomerular Filt Rate > 60.0 mL/min (>60); Globulin 3.3 g/dL (1.7-4.1); Glucose 230 mg/dL (70-100); HEMOLYSIS < 15 (0-50); Lipase 46 U/L (23-300); PTT Partial Thromboplastin Tim 27 SECONDS (26.4-36.2); Potassium 3.8 mmol/L (3.4-5.1); Sodium 137 mmol/L (137-145); Total Protein 7.3 g/dL (6.3-8.2)
[2019-09-09 16:29] LABS: Lactate (Lactic Acid) 1.4 mmol/L (0.7-2.1)
[2019-09-09 16:31] VITALS: TEMP 36.8
[2019-09-09] MEDS: KETOROLAC 60 MG/2 ML VIAL 30 MG IV (16:36)
[2019-09-09] MEDS: SODIUM CHLORIDE 0.9% 1,000 ML 1000 ML IV (16:36)
--- NOTE | 2019-09-09 16:43 | ED_ITS ---
HPI - Fever <Cristiana Spain DO - Last Filed: 09/12/19 08:08> General Chief Complaint: Fever Stated Complaint: ABSCESS TOP OF HEAD SWELLING OF FACE Time Seen by Provider: 09/09/19 16:08 Source: patient Mode of arrival: Ambulatory Limitations: no limitations History of Present Illness HPI Narrative: Patient is a 39-year-old female with history of insulin-dependent diabetes presenting with facial swelling. She had an abscess on the right scalp drained yesterday at the walk-in clinic she was started on doxycycline this morning and today she has significant facial swelling. She noted to have low- grade fever here in the emergency department as well. She is not nauseous or vomiting. She has no difficulty breathing no other hives anywhere else. MD complaint: fever Related Data Home Medications Medication Instructions Recorded Confirmed insulin lispro [Humalog U-100 0 unit INJ SEE INSTRUCTIONS 08/16/19 09/09/19 Insulin] lisinopril 2.5 mg tablet 2.5 mg PO DAILY 09/08/19 09/09/19 levothyroxine 175 mcg PO DAILY 09/09/19 09/09/19 Previous Rx's Medication Instructions Recorded insulin glargine [Lantus Solostar 25 unit SUBCUT BEDTIME #15 ml 08/17/19 U-100 Insulin] doxycycline hyclate 100 mg capsule 100 mg PO BID 7 Days #14 cap 09/08/19 Allergies Allergy/AdvReac Type Severity Reaction Status Date / Time No Known Drug Allergies Allergy Verified 09/08/19 12:21 Review of Systems <DO Sun Echavarria Last Filed: 09/12/19 08:08> Review of Systems Narrative: GENERAL: fever Denies chills, fatigue, malaise, sweats, travel HEENT: See HPI RESPIRATORY: Denies dyspnea, cough, wheezing, hemoptysis, sputum. CARDIOVASCULAR: Denies chest pain, palpitations, orthopnea, edema GASTROINTESTINAL: Denies nausea, vomiting, abdominal pain, diarrhea, constipation, melena. : Denies dysuria, frequency, incontinence, hematuria, urinary retention, flank pain. MUSCULOSKELETAL: Denies weakness, joint pain, or bony pain SKIN: No rash, no erythema, no pruritus NEUROLOGIC: Denies weakness, dizziness, headache, numbness, change in speech, confusion PSYCHIATRIC: No concerning psychosocial issues. 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) Diabetic retinopathy (Chronic 09/21/17) Dyslipidemia (Chronic) Hypothyroid (Chronic ~1991) Surgical History Status post hysteroscopy Status post myringotomy with insertion of tube Family History Father Age: 64 High cholesterol Grandfather Age: 90 Diabetes mellitus Grandmother Age: 87 Breast cancer Mother Age: 64 High cholesterol Grandmother Cancer Heart disease Sister Age: 42 High cholesterol Social History household members: significant other and children Smoking Status: Never smoker Smoking Status: Never smoker alcohol intake frequency: holidays/special occasions only Substance Use Type: does not use Exam <Cristiana Spain DO - Last Filed: 09/12/19 08:08> Initial Vital Signs Initial Vital Signs: Vital Signs Temperature 101.0 F H 09/09/19 15:35 Pulse Rate 112 H 09/09/19 15:35 Respiratory Rate 24 09/09/19 15:35 Pulse Oximetry 100 09/09/19 15:35 GENERAL: Well-appearing, well-nourished and in no acute distress. HEENT: Head atraumatic,EOMI, she is noted to have facial swelling is N/C along h er forehead area of I and D is noted in no right ear line no significant swelling of fluctuation no gross pus. She has mild erythema over her nose and bilateral cheeks CARDIOVASCULAR: Regular rate and rhythm without murmurs, rubs or gallops. RESPIRATORY: Breath sounds equal bilaterally, no wheezes rales or rhonchi. ABDOMEN: Soft, nontender. Normoactive bowel sounds all 4 quadrants. No guarding or rebound. EXTREMITIES: Normal range of motion, no clubbing or edema. Neurovascularly intact NEUROLOGICAL: Alert and oriented x4.Normal gait and speech. SKIN: Warm, dry, no laceration, no petechiae, no rashes or lesions. <Akira Perez DO - Last Filed: 09/10/19 03:16> Initial Vital Signs Initial Vital Signs: Vital Signs Temperature 101.0 F H 09/09/19 15:35 Pulse Rate 112 H 09/09/19 15:35 Respiratory Rate 24 09/09/19 15:35 Pulse Oximetry 100 09/09/19 15:35 Course <Cristiana Spain, DO - Last Filed: 09/12/19 08:08> Orders Ordered: Discontinued Medications Sodium Chloride (Normal Saline 0.9%) 1,000 mls @ 1,000 mls/hr IV BOLUS ONE Stop: 09/09/19 16:39 Last Infusion: 09/09/19 19:04 Dose: 0 mls/hr Documented by: SAMPSONARRINGTO Admin: 09/09/19 16:36 Dose: 1,000 mls/hr Documented by: ROSAURA Vancomycin HCl 1,250 mg/ (Sodium Chloride) 250 mls @ 250 mls/hr IV NOW ONE Stop: 09/09/19 16:45 Last Infusion: 09/09/19 19:05 Dose: 0 mls/hr Documented by: SAMPSONARRINGTO Admin: 09/09/19 17:55 Dose: 250 mls/hr [facility] Ketorolac Tromethamine (Toradol) 30 mg IV NOW ONE Stop: 09/09/19 16:09 Last Admin: 09/09/19 16:36 Dose: 30 mg Documented by: BTONER Vital Signs Vital signs: Vital Signs - 8 hr 09/09/19 20:00 Pulse Rate 100 H Blood Pressure [Left Arm] 132/69 Pulse Oximetry 97 <Akira Perez DO - Last Filed: 09/10/19 03:16> Course Course Narrative: Patient received in sign-out from Dr. Spain. I performed an independent history and physical and agree with her plan. Patient is feeling quite well and will return for re-evaluation in the morning. She has been given return precautions and has had her questions answered to her apparent satisfaction. Orders Ordered: Discontinued Medications Sodium Chloride (Normal Saline 0.9%) 1,000 mls @ 1,000 mls/hr IV BOLUS ONE Stop: 09/09/19 16:39 Last Infusion: 09/09/19 19:04 Dose: 0 mls/hr Documented by: SAMPSONARRINGTO Admin: 09/09/19 16:36 Dose: 1,000 mls/hr Documented by: BTONER Vancomycin HCl 1,250 mg/ (Sodium Chloride) 250 mls @ 250 mls/hr IV NOW ONE Stop: 09/09/19 16:45 Last Infusion: 09/09/19 19:05 Dose: 0 mls/hr [facility] Admin: 09/09/19 17:55 Dose: 250 mls/hr Documented by: KAYDEN Ketorolac Tromethamine (Toradol) 30 mg IV NOW ONE Stop: 09/09/19 16:09 Last Admin: 09/09/19 16:36 Dose: 30 mg Documented by: BTONER Vital Signs Vital signs: Vital Signs - 8 hr 09/09/19 20:00 Pulse Rate 100 H Blood Pressure [Left Arm] 132/69 Pulse Oximetry 97 MDM - Fever <Cristiana Spain DO - Last Filed: 09/12/19 08:08> Lab Data Attestation: I reviewed the patient's lab results. Result diagrams: 09/09/19 16:00 09/09/19 16:00 Labs: Lab Results 09/09/19 09/09/19 09/09/19 Range/Units 16:00 16:00 16:00 WBC 12.2 H (4.5-11.0) X10^3/uL RBC 3.92 L (4.0-5.2) X10^6/uL Hgb 11.9 L (12.0-16.0) g/dL Hct 35.9 L (36-46) % MCV 91.7 (80-100) fL MCH 30.3 (26-34) PG MCHC 33.0 (30-36) % RDW 14.9 H (11.6-14.8) % Plt Count 417 H (150-400) X10^3/uL Neut % (Auto) 70.9 (50-75) % Lymph % (Auto) 17.0 L (25-40) % [place]eman % (Auto) 8.3 (3-14) % Eos % (Auto) 3.2 (2-4) % Baso % (Auto) 0.6 (0-2) % Neut # (Auto) 8600 H (3761-6007) /uL Lymph # (Auto) 2100 (1153-2900) /uL Hardeman # (Auto) 1000 H (0-900) /uL Eos # (Auto) 400 (0-450) /uL Baso # (Auto) 100 (0-100) /uL PT 10.1 (10.1-12.7) SECONDS INR 0.9 (0.9-1.3) APTT 27 (26.4-36.2) SECONDS Sodium (137-145) mmol/L Potassium (3.4-5.1) mmol/L Chloride (98-107) mmol/L Carbon Dioxide (22-32) mmol/L BUN (7-17) mg/dL Creatinine (0.52-1.04) mg/dL Estimated GFR (>60) mL/min BUN/Creatinine Ratio (6-22) Glucose (70-100) mg/dL Lactate (0.7-2.1) mmol/L Calcium (8.4-10.2) mg/dL Total Bilirubin (0.2-1.3) mg/dL AST (14-36) IU/L ALT (<35) IU/L Alkaline Phosphatase (38-126) U/L Total Protein (6.3-8.2) g/dL Albumin (3.5-5.0) g/dL Globulin (1.7-4.1) g/dL Albumin/Globulin Ratio (1.0-2.8) Lipase (23-300) U/L Procalcitonin 0.10 (<0.5) ng/mL Serum , Qual (Negative) Urine RBC (0-5/HPF) Urine WBC (0-5/HPF) Ur Squamous Epith Cells (0-5/HPF) Amorphous Sediment Urine Bacteria (None) Urine Mucus (Negative) Ur Culture Indicated? 09/09/19 09/09/19 09/09/19 Range/Units 16:00 16:00 16:00 WBC (4.5-11.0) X10^3/uL RBC (4.0-5.2) X10^6/uL Hgb (12.0-16.0) g/dL Hct (36-46) % MCV (80-100) fL MCH (26-34) PG MCHC (30-36) % RDW (11.6-14.8) % Plt Count (150-400) X10^3/uL Neut % (Auto) (50-75) % Lymph % (Auto) (25-40) % Hardeman % (Auto) (3-14) % Eos % (Auto) (2-4) % Baso % (Auto) (0-2) % Neut # (Auto) (3012-2013) /uL Lymph # (Auto) (8391-3186) /uL Hardeman # (Auto) (0-900) /uL Eos # (Auto) (0-450) /uL Baso # (Auto) (0-100) /uL PT (10.1-12.7) SECONDS INR (0.9-1.3) APTT (26.4-36.2) SECONDS Sodium 137 (137-145) mmol/L Potassium 3.8 (3.4-5.1) mmol/L Chloride 102 (98-107) mmol/L Carbon Dioxide 26 (22-32) mmol/L BUN 9 (7-17) mg/dL Creatinine 0.50 L (0.52-1.04) mg/dL Estimated GFR > 60.0 (>60) mL/min BUN/Creatinine Ratio 18.0 (6-22) Glucose 230 H (70-100) mg/dL Lactate 1.4 (0.7-2.1) mmol/L Calcium 9.3 (8.4-10.2) mg/dL Total Bilirubin 0.5 (0.2-1.3) mg/dL AST 21 (14-36) IU/L ALT 22 (<35) IU/L Alkaline Phosphatase 188 H (38-126) U/L Total Protein 7.3 (6.3-8.2) g/dL Albumin 4.0 (3.5-5.0) g/dL Globulin 3.3 (1.7-4.1) g/dL Albumin/Globulin Ratio 1.2 (1.0-2.8) Lipase 46 (23-300) U/L Procalcitonin (<0.5) ng/mL Serum , Qual Negative (Negative) Urine RBC (0-5/HPF) Urine WBC (0-5/HPF) Ur Squamous Epith Cells (0-5/HPF) Amorphous Sediment Urine Bacteria (None) Urine Mucus (Negative) Ur Culture Indicated? 09/09/19 Range/Units 17:30 WBC (4.5-11.0) X10^3/uL RBC (4.0-5.2) X10^6/uL Hgb (12.0-16.0) g/dL Hct (36-46) % MCV (80-100) fL MCH (26-34) PG MCHC (30-36) % RDW (11.6-14.8) % Plt Count (150-400) X10^3/uL Neut % (Auto) (50-75) % Lymph % (Auto) (25-40) % Hardeman % (Auto) (3-14) % Eos % (Auto) (2-4) % Baso % (Auto) (0-2) % Neut # (Auto) (8245-2957) /uL Lymph # (Auto) (8528-3775) /uL Hardeman # (Auto) (0-900) /uL Eos # (Auto) (0-450) /uL Baso # (Auto) (0-100) /uL PT (10.1-12.7) SECONDS INR (0.9-1.3) APTT (26.4-36.2) SECONDS Sodium (137-145) mmol/L Potassium (3.4-5.1) mmol/L Chloride (98-107) mmol/L Carbon Dioxide (22-32) mmol/L BUN (7-17) mg/dL Creatinine (0.52-1.04) mg/dL Estimated GFR (>60) mL/min BUN/Creatinine Ratio (6-22) Glucose (70-100) mg/dL Lactate (0.7-2.1) mmol/L Calcium (8.4-10.2) mg/dL Total Bilirubin (0.2-1.3) mg/dL AST (14-36) IU/L ALT (<35) IU/L Alkaline Phosphatase (38-126) U/L Total Protein (6.3-8.2) g/dL Albumin (3.5-5.0) g/dL Globulin (1.7-4.1) g/dL Albumin/Globulin Ratio (1.0-2.8) Lipase (23-300) U/L Procalcitonin (<0.5) ng/mL Serum , Qual (Negative) Urine RBC 0-1/hpf (0-5/HPF) Urine WBC None seen (0-5/HPF) Ur Squamous Epith Cells 0-1 /hpf (0-5/HPF) Amorphous Sediment 4+ Urine Bacteria None seen (None) Urine Mucus 1+ H (Negative) Ur Culture Indicated? Cult not indicated Point of Care Testing Test Results Negative Urine Dip Bedside Urine Glucose 1000 mg/dl Bedside Urine Bilirubin - Negative Bedside Urine Ketone ++ 40 Urine Specific [place] 1.025 Bedside Urine Occult Blood +/- Bedside Urine pH 6.0 Bedside Urine Protein + 30 Bedside Urine Urobilinogen - Negative Bedside Urine Nitrite - Negative Bedside Urine Leukocytes - Negative Esterase Imaging Data CT Face: Radiologist's Impression: PROCEDURE: CT FACIAL BONES W CON INDICATIONS: significant swelling with abscess right scalp TECHNIQUE: After the administration of intravenous contrast, 2.5 mm axial sections acquired from the mid-neck to the frontal sinuses, with coronal and sagittal reformats. For radiation dose reduction, the following was used: automated exposure control, adjustment of mA and/or kV according to patient size. COMPARISON: None. FINDINGS: Image quality: Excellent. Soft tissues: Focal soft tissue swelling and increased enhancement in the right frontal area. No drainable fluid collections. No enlarged lymph nodes. Vascular: Visualized vascular structures appear patent throughout. Bony vascular foramina and canals appear normal. Bones: Facial bones appear intact, without fractures, erosions, or destruction. Visualized portions of the skull base and auditory canals also appear normal. Sinuses: Paranasal sinuses are aerated without fluid levels, mucosal thickening, or mucoceles. Mastoid air cells are aerated. IMPRESSION: 1. Focal soft tissue swelling and increased enhancement in the right frontal area, consistent soft tissue infection. No drainable fluid collections. Dictated by: Venus Mccoy M.D. on 09/09/2019 at 18:00 [facility] Narrative Medical decision making narrative: Patient does have obvious swelling in her face overall appears well on not septic or toxic CT does not show any drainable abscess. She is given 1 dose of IV vancomycin in the emergency department waiting for culture and sensitivity from wound culture yesterday. May just need longer on antibiotics. Patient signed out to Dr. Perez for further medical management. <Akira Perez, DO - Last Filed: 09/10/19 03:16> Lab Data Labs: Lab Results 09/09/19 09/09/19 09/09/19 Range/Units 16:00 16:00 16:00 WBC 12.2 H (4.5-11.0) X10^3/uL RBC 3.92 L (4.0-5.2) X10^6/uL Hgb 11.9 L (12.0-16.0) g/dL Hct 35.9 L (36-46) % MCV 91.7 (80-100) fL MCH 30.3 (26-34) PG MCHC 33.0 (30-36) % RDW 14.9 H (11.6-14.8) % Plt Count 417 H (150-400) X10^3/uL Neut % (Auto) 70.9 (50-75) % Lymph % (Auto) 17.0 L (25-40) % Hardeman % (Auto) 8.3 (3-14) % Eos % (Auto) 3.2 (2-4) % Baso % (Auto) 0.6 (0-2) % Neut # (Auto) 8600 H (5991-1770) /uL Lymph # (Auto) 2100 (6410-5077) /uL Hardeman # (Auto) 1000 H (0-900) /uL Eos # (Auto) 400 (0-450) /uL Baso # (Auto) 100 (0-100) /uL PT 10.1 (10.1-12.7) SECONDS INR 0.9 (0.9-1.3) APTT 27 (26.4-36.2) SECONDS Sodium (137-145) mmol/L Potassium (3.4-5.1) mmol/L Chloride (98-107) mmol/L Carbon Dioxide (22-32) mmol/L BUN (7-17) mg/dL Creatinine (0.52-1.04) mg/dL Estimated GFR (>60) mL/min BUN/Creatinine Ratio (6-22) Glucose (70-100) mg/dL Lactate (0.7-2.1) mmol/L Calcium (8.4-10.2) mg/dL Total Bilirubin (0.2-1.3) mg/dL AST (14-36) IU/L ALT (<35) IU/L Alkaline Phosphatase (38-126) U/L Total Protein (6.3-8.2) g/dL Albumin (3.5-5.0) g/dL Globulin (1.7-4.1) g/dL Albumin/Globulin Ratio (1.0-2.8) Lipase (23-300) U/L Procalcitonin 0.10 (<0.5) ng/mL Serum , Qual (Negative) Urine RBC (0-5/HPF) Urine WBC (0-5/HPF) Ur Squamous Epith Cells (0-5/HPF) Amorphous Sediment Urine Bacteria (None) Urine Mucus (Negative) Ur Culture Indicated? 09/09/19 09/09/19 09/09/19 Range/Units 16:00 16:00 16:00 WBC (4.5-11.0) X10^3/uL RBC (4.0-5.2) X10^6/uL Hgb (12.0-16.0) g/dL Hct (36-46) % MCV (80-100) fL MCH (26-34) PG MCHC (30-36) % RDW (11.6-14.8) % Plt Count (150-400) X10^3/uL Neut % (Auto) (50-75) % Lymph % (Auto) (25-40) % Hardeman % (Auto) (3-14) % Eos % (Auto) (2-4) % Baso % (Auto) (0-2) % Neut # (Auto) (7142-6962) /uL Lymph # (Auto) (4513-6459) /uL Hardeman # (Auto) (0-900) /uL Eos # (Auto) (0-450) /uL Baso # (Auto) (0-100) /uL PT (10.1-12.7) SECONDS INR (0.9-1.3) APTT (26.4-36.2) SECONDS Sodium 137 (137-145) mmol/L Potassium 3.8 (3.4-5.1) mmol/L Chloride 102 (98-107) mmol/L Carbon Dioxide 26 (22-32) mmol/L BUN 9 (7-17) mg/dL Creatinine 0.50 L (0.52-1.04) mg/dL Estimated GFR > 60.0 (>60) mL/min BUN/Creatinine Ratio 18.0 (6-22) Glucose 230 H (70-100) mg/dL Lactate 1.4 (0.7-2.1) mmol/L Calcium 9.3 (8.4-10.2) mg/dL Total Bilirubin 0.5 (0.2-1.3) mg/dL AST 21 (14-36) IU/L ALT 22 (<35) IU/L Alkaline Phosphatase 188 H (38-126) U/L Total Protein 7.3 (6.3-8.2) g/dL Albumin 4.0 (3.5-5.0) g/dL Globulin 3.3 (1.7-4.1) g/dL Albumin/Globulin Ratio 1.2 (1.0-2.8) Lipase 46 (23-300) U/L Procalcitonin (<0.5) ng/mL Serum , Qual Negative (Negative) Urine RBC (0-5/HPF) Urine WBC (0-5/HPF) Ur Squamous Epith Cells (0-5/HPF) Amorphous Sediment Urine Bacteria (None) Urine Mucus (Negative) Ur Culture Indicated? 09/09/19 Range/Units 17:30 WBC (4.5-11.0) X10^3/uL RBC (4.0-5.2) X10^6/uL Hgb (12.0-16.0) g/dL Hct (36-46) % MCV (80-100) fL MCH (26-34) PG MCHC (30-36) % RDW (11.6-14.8) % Plt Count (150-400) X10^3/uL Neut % (Auto) (50-75) % Lymph % (Auto) (25-40) % Hardeman % (Auto) (3-14) % Eos % (Auto) (2-4) % Baso % (Auto) (0-2) % Neut # (Auto) (6263-3276) /uL Lymph # (Auto) (1051-0376) /uL Hardeman # (Auto) (0-900) /uL Eos # (Auto) (0-450) /uL Baso # (Auto) (0-100) /uL PT (10.1-12.7) SECONDS INR (0.9-1.3) APTT (26.4-36.2) SECONDS Sodium (137-145) mmol/L Potassium (3.4-5.1) mmol/L Chloride (98-107) mmol/L Carbon Dioxide (22-32) mmol/L BUN (7-17) mg/dL Creatinine (0.52-1.04) mg/dL Estimated GFR (>60) mL/min BUN/Creatinine Ratio (6-22) Glucose (70-100) mg/dL Lactate (0.7-2.1) mmol/L Calcium (8.4-10.2) mg/dL Total Bilirubin (0.2-1.3) mg/dL AST (14-36) IU/L ALT (<35) IU/L Alkaline Phosphatase (38-126) U/L Total Protein (6.3-8.2) g/dL Albumin (3.5-5.0) g/dL Globulin (1.7-4.1) g/dL Albumin/Globulin Ratio (1.0-2.8) Lipase (23-300) U/L Procalcitonin (<0.5) ng/mL Serum , Qual (Negative) Urine RBC 0-1/hpf (0-5/HPF) Urine WBC None seen (0-5/HPF) Ur Squamous Epith Cells 0-1 /hpf (0-5/HPF) Amorphous Sediment 4+ Urine Bacteria None seen (None) Urine Mucus 1+ H (Negative) Ur Culture Indicated? Cult not indicated Point of Care Testing Test Results Negative Urine Dip Bedside Urine Glucose 1000 mg/dl Bedside Urine Bilirubin - Negative Bedside Urine Ketone ++ 40 Urine Specific [place] 1.025 Bedside Urine Occult Blood +/- Bedside Urine pH 6.0 Bedside Urine Protein + 30 Bedside Urine Urobilinogen - Negative Bedside Urine Nitrite - Negative Bedside Urine Leukocytes - Negative Esterase Discharge Plan Departure Patient Disposition: Home Clinical Impression: Abscess of face Discharge Date/Time: 09/09/19 20:46 Instructions: DI for Skin Abscess Activity Restrictions/Additional Instructions: *You have been diagnosed with facial abscess *What to do: At this time is swelling is likely due from infection an abscess but there is no drainable abscess. *Continue to take medications as directed *Follow up with your primary care provider in 2-3 days *Return to ER if you should have increased swelling difficulty breathing or any new, worsening or concerning symptoms Prescriptions: No Action lisinopril 2.5 mg tablet 2.5 mg PO DAILY RF: 0 doxycycline hyclate 100 mg capsule 100 mg PO BID 7 Days Qty: 14 RF: 0 insulin lispro [Humalog U-100 Insulin] 100 UNIT/1 ML solution 0 unit INJ SEE INSTRUCTIONS RF: 0 Lantus Solostar U-100 Insulin 100 unit/mL (3 mL) Insulin Pen 25 unit subcut BEDTIME Qty: 15 RF: 0 levothyroxine 175 mcg Tablet 175 mcg PO DAILY RF: 0
--- NOTE | 2019-09-09 16:51 | DI.CT.S_ITS ---
PROCEDURE: CT FACIAL BONES W CON INDICATIONS: significant swelling with abscess right scalp TECHNIQUE: After the administration of intravenous contrast, 2.5 mm axial sections acquired from the mid-neck to the frontal sinuses, with coronal and sagittal reformats. For radiation dose reduction, the following was used: automated exposure control, adjustment of mA and/or kV according to patient size. COMPARISON: None. FINDINGS: Image quality: Excellent. Soft tissues: Focal soft tissue swelling and increased enhancement in the right frontal area. No drainable fluid collections. No enlarged lymph nodes. Vascular: Visualized vascular structures appear patent throughout. Bony vascular foramina and canals appear normal. Bones: Facial bones appear intact, without fractures, erosions, or destruction. Visualized portions of the skull base and auditory canals also appear normal. Sinuses: Paranasal sinuses are aerated without fluid levels, mucosal thickening, or mucoceles. Mastoid air cells are aerated. IMPRESSION: 1. Focal soft tissue swelling and increased enhancement in the right frontal area, consistent soft tissue infection. No drainable fluid collections. Dictated by: Venus Mccoy M.D. on 09/09/2019 at 18:00 Approved by: Venus Mccoy M.D. on 09/09/2019 at 18:05
[2019-09-09 17:09] LABS: Pregnancy Test Serum,Qual Negative (Negative)
[2019-09-09] MEDS: VANCOMYCIN 1,250 MG in SODIUM CHLORIDE 0.9% 250 ML IV (17:55)
[2019-09-09 18:00] VITALS: BP 124/55; PULSE 86; O2SAT 99
[2019-09-09 19:03] VITALS: BP 132/64; PULSE 82; RESP 18; O2SAT 100
[2019-09-09 19:33] LABS: Bacteria Urine None Seen; WBC Urine None Seen (0-5/HPF)
[2019-09-09 19:40] LABS: Amorphous Sediment Urine 4+; Culture Indicated Urine Cult Not Indicated; Mucus Urine 1+ (Negative); RBC Urine 0-1/HPF (0-5/HPF); Squamous Epithelial Cell Urine 0-1 /HPF (0-5/HPF)
[2019-09-09 20:00] VITALS: BP 132/69; PULSE 100; O2SAT 97
== END 2019-09-09 20:46 | disposition home or self-care (01) ==
PROVIDERS: Emergency Medicine; Emergency Provider Emergency Medicine
DX: L02.01 Cutaneous abscess of face (principal); R60.0 Localized edema
CPT/HCPCS: 36415; 70487; 80053; 81003; 81015; 81025; 83605; 83690; 84145; 84703; 85025; 85610; 85730; 87040; 96365; 96366; 96375; 99283; 99284; J1885; Q9967

== ENCOUNTER 2019-10-04 05:37 | Inpatient (IN) | payer OTHER, SELFPAY ==
[2019-08-16 17:26] VITALS: BMI 25.7
[2019-10-04] VITALS (14 sets, daily range): BP systolic 125–164; BP diastolic 54–82; PULSE 98–136; RESP 16–36; TEMP 36.5–37.8; O2SAT 98–100; BMI 26.1; BMI 24.5
--- NOTE | 2019-10-04 05:39 | ED_ITS ---
HPI - Nausea/Vomiting/Diarrhea General Chief complaint: Diabetic Problem Stated complaint: vomiting since last night type I diabetic Time Seen by Provider: 10/04/19 05:38 Source: patient and family Mode of arrival: Ambulatory Limitations: no limitations History of Present Illness HPI Narrative: 39-year-old female nonsmoker and type 1 diabetic presents with a family friend and a chief complaint of multiple episodes of vomiting since last night. She denies any fever chills nor any recent illness. She denies any change in her diabetic regimen or missed doses. She has had some generalized abdominal discomfort and denies diarrhea, dysuria, frequency or urgency. Her last episode of DKA was about a year ago. She is very weak and complains of significant fatigue. MD complaint: nausea, vomiting and abdominal pain Onset (ago): hour(s) Description of Vomiting: food contents Description of Diarrhea: none Associated Abdominal Pain: Yes Location of pain: diffuse Severity: mild Quality: cramping Relieving factors: none Exacerbating factors: none Context: other Related Data Home Medications Medication Instructions Recorded Confirmed insulin lispro [Humalog U-100 0 unit INJ SEE INSTRUCTIONS 08/16/19 09/09/19 Insulin] lisinopril 2.5 mg tablet 2.5 mg PO DAILY 09/08/19 09/09/19 levothyroxine 175 mcg PO DAILY 09/09/19 09/09/19 Previous Rx's Medication Instructions Recorded insulin glargine [Lantus Solostar 25 unit SUBCUT BEDTIME #15 ml 08/17/19 U-100 Insulin] Allergies Allergy/AdvReac Type Severity Reaction Status Date / Time No Known Drug Allergies Allergy Verified 09/08/19 12:21 Review of Systems Constitutional Constitutional: Denies chills, Reports fatigue, Denies fever(s), Denies frequent falls, Denies lethargy and Reports weakness Eyes Eyes: Denies change in vision, Denies eye discharge, Denies irritation and Denies loss of vision ENT Ears, Nose, Mouth, and Throat: Denies change in voice, Denies dizziness, Denies neck pain, Denies sore throat and Denies throat swelling Cardiovascular Cardiovascular: Denies chest pain, Denies irregular heart rhythm, Denies lightheadedness, Denies palpitations, Denies dyspnea, Denies dyspnea on exertion and Denies orthopnea Respiratory Respiratory: Denies cough, Denies dyspnea, Denies dyspnea on exertion and Denies wheezing Gastrointestinal Gastrointestinal: Reports abdominal pain, Denies change in bowel habits, Denies diarrhea, Reports nausea and Reports vomiting Genitourinary Genitourinary: Denies hematuria, Denies flank pain, Denies urinary incontinence and Denies urinary urgency Musculoskeletal Musculoskeletal: Denies back pain, Denies muscle weakness, Denies neck pain, Denies numbness and Denies tingling Integumentary/Breasts Skin/Breast: Denies pruritus, Denies erythema, Denies rash and Denies wounds Neurologic Neurologic: Denies behavioral changes, Denies confusion, Denies dizziness, Denies frequent falls, Denies loss of vision, Denies numbness, Denies tingling and Reports weakness Psychiatric Psychiatric: Denies anxiety, Denies behavioral changes, Denies confusion, Denies depression, Denies homicidal ideation and Denies suicidal ideation Endocrine Endocrine: Reports fatigue, Denies flushing and Denies palpitations Hematologic/Lymphatic Hematologic/Lymphatic: Denies easy bruising Allergic/Immunologic Allergic/Immunologic: Denies urticaria, Denies throat swelling and Denies wheezing Patient History Family History Father Age: 64 High cholesterol Grandfather Age: 90 Diabetes mellitus Grandmother Age: 87 Breast cancer Mother Age: 64 High cholesterol Grandmother Cancer Heart disease Sister Age: 42 High cholesterol Social History household members: significant other and children Smoking Status: Never smoker Smoking Status: Never smoker alcohol intake frequency: holidays/special occasions only Substance Use Type: does not use Exam Initial Vital Signs Initial Vital Signs: Vital Signs Temperature 97.7 F 10/04/19 06:03 Pulse Rate 125 H 10/04/19 06:03 Respiratory Rate 31 H 10/04/19 06:03 Blood Pressure 164/82 H 10/04/19 06:03 Pulse Oximetry 98 10/04/19 06:03 Course Orders Ordered: ED Orders 10/04/19 05:50 Venous Blood Gas Stat 10/04/19 05:51 XR chest 1V Stat Blood Culture Stat Venous Blood Gas Stat EKG-12 Lead Stat 10/04/19 06:40 Complete Blood Count AUTO DIFF Stat Comprehensive Metabolic Panel Stat Ketones (Beta-Hydroxybutyrate) Stat Lactate (Lactic Acid) Stat Procalcitonin Stat Acetaminophen (Tylenol) 650 mg PO Q6HR PRN PRN Reason: Fever/Mild Pain (1-3) Heparin Sodium (Porcine) (Heparin) 5,000 unit SUBCUT BID FER INSULIN DRIP PREMIX (Myxredlin Drip Premix) 100 unit in 100 mls @ 6 mls/hr IV TITRATE FER; Protocol Last Titration: 10/04/19 07:37 Dose: 6 mls /hr, 6 mls/hr Documented by: WILLIE Cosigned by: DANIEL Admin: 10/04/19 06:43 Dose: 6 mls /hr, 6 mls/hr Documented by: WILLIE Cosigned by: ALTHEA Insulin Human Regular 100 unit (/ Sodium Chloride) 100 mls @ 6 mls/hr IV TIT RATE FER; Protocol Ceftriaxone Sodium/Dextrose (Rocephin) 2 gm in 50 mls @ 100 mls/hr IV Q24H FER Sodium Chloride (Normal Saline 0.9%) 1,000 mls @ 1,000 mls/hr IV BOLUS ONE Stop: 10/04/19 08:36 Levothyroxine Sodium (Synthroid) 100 mcg PO 0600 FER Levothyroxine Sodium (Synthroid) 75 mcg PO 0600 FER Lisinopril (Zestril) 2.5 mg PO DAILY FER Ondansetron HCl (Zofran) 4 mg IV Q8HR PRN PRN Reason: Nausea And Vomiting Promethazine HCl (Phenadoz) 12.5 mg WA Q6HR PRN PRN Reason: Nausea And Vomiting Vancomycin HCl (Vancomycin Per Pharmacy) 1 request [facility] [place] NOW ONE Stop: 10/04/19 07:36 Discontinued Medications Diphenhydramine HCl (Benadryl) 25 mg IV NOW ONE Stop: 10/04/19 06:45 Last Admin: 10/04/19 06:46 Dose: 25 mg Documented by: WILLIE Lactated Ringer's (Lactated Ringers) 1,000 mls @ 1,000 mls/hr IV BOLUS ONE Stop: 10/04/19 06:50 Last Infusion: 10/04/19 07:38 Dose: 0 mls/hr Documented by: Admin: 10/04/19 05:59 Dose: 1,000 mls/hr Documented by: WILLIE Metoclopramide HCl (Reglan) 10 mg IV NOW ONE Stop: 10/04/19 06:25 Last Admin: 10/04/19 06:27 Dose: 10 mg Documented by: WILLIE Ondansetron HCl (Zofran) 4 mg IV NOW ONE Stop: 10/04/19 05:52 Last Admin: 10/04/19 05:58 Dose: 4 mg Documented by: WILLIE Vital Signs Vital signs: Vital Signs - 8 hr 10/04/19 06:03 10/04/19 06:27 Temperature 97.7 F Pulse Rate 125 H 129 H Respiratory Rate 31 H 20 Blood Pressure 164/82 H Blood Pressure [Left Arm] 159/64 H Pulse Oximetry 98 99 MDM - Nausea/Vomiting/Diarrhea Lab Data Result diagrams: 10/04/19 06:40 10/04/19 06:40 Labs: Lab Results 10/04/19 10/04/19 10/04/19 Range/Units 05:50 06:40 06:40 WBC 27.0 H (4.5-11.0) X10^3/uL RBC 4.76 (4.0-5.2) X10^6/uL Hgb 14.4 (12.0-16.0) g/dL Hct 45.6 (36-46) % MCV 95.6 (80-100) fL MCH 30.3 (26-34) PG MCHC 31.7 (30-36) % RDW 14.8 (11.6-14.8) % Plt Count 608 H (150-400) X10^3/uL Neut % (Auto) Not Reportable Lymph % (Auto) Not Reportable Creek % (Auto) Not Reportable Eos % (Auto) Not Reportable Baso % (Auto) Not Reportable Lymph # (Auto) Not Reportable Creek # (Auto) Not Reportable Baso # (Auto) Not Reportable Total Counted 100 Seg Neutrophils % 84.0 H (38-70) % Band Neutrophils % 7.0 (3-7) % Lymphocytes % (Manual) 4.0 L (25-45) % Monocytes % (Manual) 4.0 (2-11) % Basophils % (Manual) 1.0 (0-1) % Neutrophils # (Manual) 32869 H (4543-3902) /uL Platelet Estimate Increased on smear RBC Morphology Normal morphology VBG pH 7.10 L* (7.33-7.43) VBG pCO2 18.1 L (45-50) mmHg VBG pO2 43 (35-45) mmHg VBG HCO3 6 L (23-28) mmol/L VBG Total CO2 6 L (24-29) mmol/L VBG O2 Saturation 62 L (70-75) % VBG Base Excess -24.0 L (0-4) mmol/L Sodium (137-145) mmol/L Potassium (3.4-5.1) mmol/L Chloride (98-107) mmol/L Carbon Dioxide (22-32) mmol/L BUN (7-17) mg/dL Creatinine (0.52-1.04) mg/dL Estimated GFR (>60) mL/min BUN/Creatinine Ratio (6-22) Glucose (70-100) mg/dL Lactate (0.7-2.1) mmol/L Calcium (8.4-10.2) mg/dL Total Bilirubin (0.2-1.3) mg/dL AST (14-36) IU/L ALT (<35) IU/L Alkaline Phosphatase (38-126) U/L Total Protein (6.3-8.2) g/dL Albumin (3.5-5.0) g/dL Globulin (1.7-4.1) g/dL Albumin/Globulin Ratio (1.0-2.8) Procalcitonin 0.12 (<0.5) ng/mL Ketones (<0.27) mmol/L 10/04/19 10/04/19 Range/Units 06:40 06:40 WBC (4.5-11.0) X10^3/uL RBC (4.0-5.2) X10^6/uL Hgb (12.0-16.0) g/dL Hct (36-46) % MCV (80-100) fL MCH (26-34) PG MCHC (30-36) % RDW (11.6-14.8) % Plt Count (150-400) X10^3/uL Neut % (Auto) Lymph % (Auto) Creek % (Auto) Eos % (Auto) Baso % (Auto) Lymph # (Auto) Creek # (Auto) Baso # (Auto) Total Counted Seg Neutrophils % (38-70) % Band Neutrophils % (3-7) % Lymphocytes % (Manual) (25-45) % Monocytes % (Manual) (2-11) % Basophils % (Manual) (0-1) % Neutrophils # (Manual) (2762-2371) /uL Platelet Estimate RBC Morphology VBG pH (7.33-7.43) VBG pCO2 (45-50) mmHg VBG pO2 (35-45) mmHg VBG HCO3 (23-28) mmol/L VBG Total CO2 (24-29) mmol/L VBG O2 Saturation (70-75) % VBG Base Excess (0-4) mmol/L Sodium 137 (137-145) mmol/L Potassium 6.0 H (3.4-5.1) mmol/L Chloride 102 (98-107) mmol/L Carbon Dioxide < 5 L* (22-32) mmol/L BUN 16 (7-17) mg/dL Creatinine 0.80 (0.52-1.04) mg/dL Estimated GFR > 60.0 (>60) mL/min BUN/Creatinine Ratio 20.0 (6-22) Glucose 627 H* (70-100) mg/dL Lactate 4.2 H* (0.7-2.1) mmol/L Calcium 9.9 (8.4-10.2) mg/dL Total Bilirubin 0.4 (0.2-1.3) mg/dL AST 22 (14-36) IU/L ALT 19 (<35) IU/L Alkaline Phosphatase 201 H (38-126) U/L Total Protein 8.6 H (6.3-8.2) g/dL Albumin 4.6 (3.5-5.0) g/dL Globulin 4.0 (1.7-4.1) g/dL Albumin/Globulin Ratio 1.2 (1.0-2.8) Procalcitonin (<0.5) ng/mL Ketones 10.45 H (<0.27) mmol/L Point of Care Testing Glucose POC 358 Critical Care Time Critical Care Time Critical Care Time: Yes Total Critical Care Time: 30 Attestation: The high probability of a clinically significant, sudden or life threatening deterioration of the [CV] system(s) required my full and direct attention, intervention and personal management. The aggregate critical care time was [30] minutes. This time is in addition to time spent performing reported procedures but includes the following: [x] Data Review and interpretation [x] Patient assessment and monitoring of vital signs [x] Documentation [x] Medication orders and management Discharge Plan Departure Patient Disposition: Admitted As Inpatient Clinical Impression: Diabetic ketoacidosis Admit Date/Time: 10/04/19 06:57 Admit Provider: Yumiko Cortes
--- NOTE | 2019-10-04 05:51 | DI.RAD.S_ITS ---
PROCEDURE: XR CHEST 1V INDICATIONS: Diabetic ketoacidosis TECHNIQUE: One view of the chest was acquired. COMPARISON: [facility], CR, XR CHEST 1V, 08/16/2019, 15:14. FINDINGS: Surgical changes and devices: None. Lungs and pleura: Lungs are clear. No pleural effusions or pneumothorax. Mediastinum: Mediastinal contours appear normal. Heart size is normal. Bones and chest wall: No suspicious bony lesions. Overlying soft tissues appear unremarkable. IMPRESSION: No acute cardiopulmonary disease process. Dictated by: Brandi Dozier MD, PhD on 10/04/2019 at 9:29 Approved by: Brandi Dozier MD, PhD on 10/04/2019 at 9:30
[2019-10-04] MEDS: ONDANSETRON 4 MG/2 ML INJ IV (05:58)
[2019-10-04] MEDS: LACTATED RINGERS 1,000 ML 1000 ML IV (05:59)
[2019-10-04 06:02] LABS: HCO3 VBG 6 mmol/L (23-28); PCO2 VBG 18.1 mmHg (45-50); PO2 VBG 43 mmHg (35-45); Total CO2 VBG 6 mmol/L (24-29)
[2019-10-04 06:03] LABS: Oxygen Saturation VBG 62 % (70-75)
[2019-10-04] MEDS: METOCLOPRAMIDE 10 MG/2 ML INJ IV (06:27)
[2019-10-04] MEDS: INSULIN DRIP PREMIX 100 UNIT/100 ML PLAST..BAG 6 UNIT IV (06:43)
[2019-10-04] MEDS: diphenhydrAMINE 50 MG/ML VIAL 25 MG IV (06:46)
[2019-10-04 06:55] LABS: Hematocrit 45.6 % (36-46); Hemoglobin 14.4 g/dL (12.0-16.0); Mean Corpuscular HGB Conc 31.7 % (30-36); Mean Corpuscular Hemoglobin 30.3 PG (26-34); Mean Corpuscular Volume 95.6 fL (80-100); Platelet Count 608 X10^3/uL (150-400); Red Blood Cell Count 4.76 X10^6/uL (4.0-5.2); Red Cell Distribution Width 14.8 % (11.6-14.8)
[2019-10-04 07:03] LABS: Alanine Aminotransferase 19 IU/L (<35); Albumin 4.6 g/dL (3.5-5.0); Albumin Globulin Ratio 1.2 (1.0-2.8); Alkaline Phosphatase 201 U/L (38-126); Aspartate Aminotransferase 22 IU/L (14-36); Bilirubin Total 0.4 mg/dL (0.2-1.3); Blood Urea Nitrogen 16 mg/dL (7-17); Calcium 9.9 mg/dL (8.4-10.2); Chloride 102 mmol/L (98-107); Estimated Glomerular Filt Rate > 60.0 mL/min (>60); HEMOLYSIS < 15 (0-50); Sodium 137 mmol/L (137-145); Total Protein 8.6 g/dL (6.3-8.2)
[2019-10-04 07:05] LABS: Lactate (Lactic Acid) 4.2 mmol/L (0.7-2.1)
--- NOTE | 2019-10-04 07:05 | P.HP_ITS ---
History of Present Illness History of Present Illness Date Patient Seen: 10/04/19 Time Patient Seen: 06:00 Chief complaint: vomiting since last night type I diabetic Narrative: Patient is unable to provide a history, this is provided by the ED provider and her sister. She was noted to be vomiting since 11 pm the previous night. While in the room, the patient is restless and unable to position herself to comfort insisting on being able to sit on a chair. Stated it was in her mid-back and chest. Per the ED provider, she was treated for a MRSA abcess on her head, per the note, she was administered one dose of vancomycin, it was drained and was discharged on doxycyline. Patient History Medical History (Updated 10/04/19 @ 07:45 by KARSTEN Solano) Diabetes mellitus type 1 with complications (Chronic ~1994) Diabetic retinopathy (Chronic 09/21/17) Dyslipidemia (Chronic) Hypothyroid (Chronic ~1991) Surgical History Status post hysteroscopy Status post myringotomy with insertion of tube Family & Social History Family History Father Age: 64 High cholesterol Grandfather Age: 90 Diabetes mellitus Grandmother Age: 87 Breast cancer Mother Age: 64 High cholesterol Grandmother Cancer Heart disease Sister Age: 42 High cholesterol Social History: household members significant other,children Safety & Behavioral: Feels Safe in Current Yes Environment Tobacco & Substance use: Smoking Status Never smoker alcohol intake frequency holiday/special occasion Substance Use Type does not use Meds Home Medications and Allergies Home Medications Medication Instructions Recorded Confirmed Type insulin lispro [Humalog U-100 0 unit INJ SEE INSTRUCTIONS 08/16/19 09/09/19 History Insulin] insulin glargine [Lantus Solostar 25 unit SUBCUT BEDTIME #15 ml 08/17/19 09/09/19 Rx U-100 Insulin] lisinopril 2.5 mg tablet 2.5 mg PO DAILY 09/08/19 09/09/19 History levothyroxine 175 mcg PO DAILY 09/09/19 09/09/19 History Allergies Allergy/AdvReac Type Severity Reaction Status Date / Time No Known Drug Allergies Allergy Verified 09/08/19 12:21 Review of Systems Review of Systems ROS Unobtainable: unobtainable due to mental status (Unable to answer questions.) Exam Vital Signs (past 8 hours): - 10/04/19 06:03 10/04/19 06:27 Temperature 97.7 F Pulse Rate 125 H 129 H Respiratory Rate 31 H 20 Blood Pressure 164/82 H Blood Pressure [Left Arm] 159/64 H Pulse Oximetry 98 99 Oxygen Delivery Method Room Air Narrative Exam Narrative: Gen: Alert, thin and ill appearing 39 y.o. female, in distress HEENT: normocephalic, atraumatic, conjunctiva clear, sclera non-icteric, oral mucosa pink and moist Neck: supple, full ROM Resp: Lungs CTA, non-labored breathing CV: tachy, no murmur or rubs Skin: Has a 2 cm diameter lesion on the left scalp area that is pink and raised Neuro: Oriented to self only Extremities: moves all 4 extremities, is ambulatory Psyche: unable to assess Objective Labs Result Diagrams: 10/04/19 06:40 10/04/19 06:40 Labs: Laboratory Results - last 24 hr 10/04/19 05:50 VBG pH 7.10 L* VBG pCO2 18.1 L VBG pO2 43 VBG HCO3 6 L VBG Total CO2 6 L VBG O2 Saturation 62 L VBG Base Excess -24.0 L Assessment & Plan Assessment & Plan narrative: Catina Moya will be admitted to the intensive care unit for treatment and managment of diabetic ketoacidosis and severe sepsis secondary to suspected anti biotic treatment failure of a scalp abscess. 1. Diabetic ketoacidosis, acute, present on admission * Glucose was 627, ketones 10.4, bicarb was 6, pH 7.10 * She is started in an insulin drip protocol * NPO * A1c is pending 2. Severe sepsis secondary to suspected antibiotic treatment failure of a scalp abscess, acute and present on admission * WBC is 27,000, Lactate of 4.2 * She is initiated on IV Vanco * Blood cultures are pending, previous wound culture was positive for MRSA 3. Hyperkalemia, acute, present on admission * NS bolus order * recheck potassium at 4 hours 4. Hypothyroidism, chronic * TSH w/reflex to T4 pending * Resume home dose of levothyroxine 175 mcg after TSH has resulted 5. Essential hypertension * Hold lisinopril 2.5 mg * IV lobatolol prn FEN: per insulin protocol, NPO, DKA BMP protocol Patient is admitted inpatient intensive care her stay is likely to exceed 2 midnights. VTE Prophylaxis: Heparin 5000 units bid subQ Medications reconciled: yes Disposition: unknown at this time Code Status: full code
[2019-10-04 07:06] LABS: Ketones (Beta-Hydroxybutyrate) 10.45 mmol/L (<0.27)
[2019-10-04 07:14] LABS: Add Manual Diff / Slide Review YES
[2019-10-04 07:19] LABS: Neutrophils Absolute Manual 24570 /uL (3000-5900); Total Cells Counted 100
[2019-10-04 07:20] LABS: Glucose 627 mg/dL (70-100); Platelet Estimate Increased on smear; RBC Morphology Normal Morphology
[2019-10-04 07:21] LABS: Carbon Dioxide < 5 mmol/L (22-32)
[2019-10-04 07:24] LABS: Procalcitonin 0.12 ng/mL (<0.5)
[2019-10-04] MEDS: SODIUM CHLORIDE 0.9% 1,000 ML 1000 ML IV ×2 (08:11→09:15)
[2019-10-04 08:50] LABS: Reflexed Lactate in 2 Hours Y
[2019-10-04 09:47] LABS: Adenovirus Not Detected (Not Detect); Bordetella pertussis Not Detected (Not Detect); Chlamydophila pneumoniae Not Detected (Not Detect); Coronavirus 229E Not Detected (Not Detect); Coronavirus HKU1 Not Detected (Not Detect); Coronavirus NL 63 Not Detected (Not Detect); Coronavirus OC43 Not Detected (Not Detect); Human Metapneumovirus Not Detected (Not Detect); Human Rhinovirus/Enterovirus Not Detected (Not Detect); Influenza A Not Detected (Not Detect); Influenza B Not Detected (Not Detect); Mycoplasma pneumoniae Not Detected (Not Detect); Parainfluenza Virus 1 Not Detected (Not Detect); Parainfluenza Virus 2 Not Detected (Not Detect); Parainfluenza Virus 3 Not Detected (Not Detect); Parainfluenza Virus 4 Not Detected (Not Detect); Respiratory Syncytial Virus Not Detected (Not Detect)
--- NOTE | 2019-10-04 09:59 | DI.RAD.S_ITS ---
PROCEDURE: XR CHEST 1V INDICATIONS: confirm picc placement TECHNIQUE: One view of the chest was acquired. COMPARISON: [facility], CR, XR CHEST 1V, 10/04/2019, 6:06. FINDINGS: Surgical changes and devices: There is a left upper extremity PICC line with the tip in the superior vena cava approximately 2 cm from the cavoatrial junction. Lungs and pleura: Lungs are clear. No pleural effusions or pneumothorax. Mediastinum: Mediastinal contours appear normal. Heart size is normal. Bones and chest wall: No suspicious bony lesions. Overlying soft tissues appear unremarkable. IMPRESSION: 1. New PICC line extends into the superior vena cava approximately 2 cm from the cavoatrial junction. Dictated by: Jean Pierre Middleton M.D. on 10/04/2019 at 10:39 Approved by: Jean Pierre Middleton M.D. on 10/04/2019 at 10:48
[2019-10-04 10:04] LABS: Pregnancy Test Urine Negative (Negative)
[2019-10-04 10:05] LABS: UR Morphine/Opiate cutoff 300 Negative (Negative); Ur Creatinine Abnormal (Normal); Ur Specific Gravity Normal (Normal); Urine Amphetamines Negative (Negative); Urine Barbiturates Negative (Negative); Urine Benzodiazepines Negative (Negative); Urine Cocaine Negative (Negative); Urine MDMA Negative (Negative); Urine Methadone Negative (Negative); Urine Methamphetamines Negative (Negative); Urine Oxycodone Negative (Negative); Urine Phencyclidine Negative (Negative); Urine Tetrahydrocannabinol Negative (Negative); Urine Tricyclic Antidepressant Negative (Negative); Urine pH Normal (Normal)
[2019-10-04] MEDS: VANCOMYCIN 1,000 MG/200 ML PIGGYBACK 200 MG IV (10:24)
[2019-10-04 10:46] LABS: Blood Urea Nitrogen 14 mg/dL (7-17); Chloride 118 mmol/L (98-107); Estimated Glomerular Filt Rate > 60.0 mL/min (>60); Glucose 239 mg/dL (70-100); HEMOLYSIS < 15 (0-50); Potassium 4.1 mmol/L (3.4-5.1); Sodium 144 mmol/L (137-145)
[2019-10-04 10:47] LABS: Lactate 2HR (Lactic Acid Rflx) 3.2 mmol/L (0.7-2.1); Phosphorous 2.9 mg/dL (2.5-4.5)
[2019-10-04 10:50] LABS: Carbon Dioxide 7 mmol/L (22-32)
--- NOTE | 2019-10-04 10:56 | PC.ADMIT ---
[email or web address] Admission Note: The patient,Catina Moya,39 y/o, was given written information regarding hospital policies, unit procedures and contact persons. Patient's smoking status: Never smoker. Vital Signs - 8 hr 10/04/19 06:03 10/04/19 06:27 10/04/19 07:34 Temperature 97.7 F Pulse Rate 125 H 129 H 135 H Respiratory Rate 31 H 20 26 H Blood Pressure 164/82 H Blood Pressure [Left Arm] 159/64 H 145/64 H Pulse Oximetry 98 99 98 10/04/19 07:36 10/04/19 07:50 10/04/19 09:30 Temperature 98.1 F Pulse Rate 132 H 136 H 136 H Respiratory Rate 31 H 36 H 30 H Blood Pressure 145/64 H 153/76 H 140/73 Blood Pressure [Left Arm] Pulse Oximetry 100 99 100 10/04/19 10:00 Temperature Pulse Rate 127 H Respiratory Rate 32 H Blood Pressure 138/73 Blood Pressure [Left Arm] Pulse Oximetry 100 0745- Rec'd pt from ED with insulin and IVFs infusing. Pt is drowsy and intermittently interactive. Follows simple commands appropriately and answers a few questions with clear/quiet speech. Admission assessment completed as able. Pt's sister is at bedside but only knows minor details regarding medical hx and current illness. Spoke with Dr. Fox regarding IV access and multiple medications, need for second set of blood cultures before starting abx, pt with no urine output (spec not sent due to this), as well as assessment findings. Dr. Boyce rounded, noted spot of drainage to forehead wound (per pt, chronic wound). Dr. Fox expressed some purulent fluid from wound and spec sent to lab for cx. Oriented pt and sister to room, routine, fall risk, call light, plan of care. Will monitor.
[2019-10-04] MEDS: HEPARIN 5,000 UNIT/ML VIAL 5000 UNIT SUBCUT ×2 (11:13→21:07)
[2019-10-04] MEDS: LEVOTHYROXINE 150 MCG TABLET PO (11:13)
[2019-10-04] MEDS: DEXTROSE 5%-0.45% NS 1,000 ML 110 ML IV (11:13)
[2019-10-04 11:20] LABS: TSH w/ Reflex to FT4 0.17 uIU/mL (0.47-4.68)
[2019-10-04 11:56] LABS: Free T4, Direct Thyroxine 1.17 ng/dL (0.78-2.19)
[2019-10-04 12:02] LABS: HCO3 ABG 8 mmol/L (22-26); Oxygen Saturation ABG 97 % (95-100); PCO2 ABG 18.3 mmHg (35-45); PO2 ABG 106 mmHg (80-100); TCO2 ABG 9 mmol/L (21-31); pH ABG 7.26 (7.35-7.45)
[2019-10-04 12:03] LABS: Fractionated Inspired Oxygen 0.21
[2019-10-04 12:04] LABS: Magnesium 1.8 mg/dL (1.6-2.3)
[2019-10-04] MEDS: DEXTROSE 10 % IN WATER 1,000 ML 73 ML IV (13:00)
[2019-10-04 13:51] LABS: Hemoglobin A1C% w Est Avg Glu 11.1 % (4.0-6.0)
[2019-10-04 14:26] LABS: Blood Urea Nitrogen 12 mg/dL (7-17); Calcium 8.4 mg/dL (8.4-10.2); Carbon Dioxide 10 mmol/L (22-32); Chloride 113 mmol/L (98-107); Estimated Glomerular Filt Rate > 60.0 mL/min (>60); Glucose 154 mg/dL (70-100); HEMOLYSIS < 15 (0-50); Lactate (Lactic Acid) 0.6 mmol/L (0.7-2.1); Potassium 4.1 mmol/L (3.4-5.1); Sodium 138 mmol/L (137-145)
[2019-10-04] MEDS: INSULIN GLARGINE 100 UNIT/ML 3ML PEN 20 UNIT SUBCUT ×2 (16:14→21:07)
[2019-10-04] MEDS: SODIUM CHLORIDE 0.9% 1,000 ML 100 ML IV (16:16)
--- NOTE | 2019-10-04 17:11 | PC.NURSE ---
Addendum entered by Rae Banegas R.N. 10/04/19 18:53: 1830 -Pt S.O. called on phone. Pt gave verbal permission for this RN to speak with him. He is very upset. Stating that this illness has been going on for over a month, and You aren't doing anything to make her better. S.O. varies between tearful and agitated. Allowed to express feelings. Answered questions as able. Refer both pt and S.O. to hospital peer educator. S.O. indicates that pt's pain, sore throat, is uncontrolled. Discussed with pt, declines interventions beyond cold items for po intake. Oral cavity assessment demonstrates erythema to pharynx area. Original Note: 1710 - Pt set up for evening meal. Denies nausea. Sore throat, Pt reports from throwing up so much stomach acid. Pt denies pain. Insulin gtt off, D10 infusion d/c'd per MD order. NS infusing at 100cc/hr. Monitor.
[2019-10-04] MEDS: VANCOMYCIN 1,250 MG in SODIUM CHLORIDE 0.9% 250 ML IV (17:38)
[2019-10-04] MEDS: INSULIN ASPART 100 UNIT/ML INSULN PEN SUBCUT (21:10)
[2019-10-04] MEDS: SODIUM CHLORIDE 0.9% FLUSH 10 ML IV (21:11)
--- NOTE | 2019-10-05 00:01 | PC.NURSE ---
Addendum entered by Marcelino Mackenzie R.N. 10/05/19 06:28: 0615: Labs drawn from PICC and sent. Port caps changed. Dressing cdi. Original Note: Strand Forming Machine Operator Note: 0000: Awake, resting in bed. Vital signs stable. PIVs in rt wrist and lt AC in place. PICC double lumen in place in lt upper arm with dressing cdi. No complaint of pain at this time.
[2019-10-05] MEDS: VANCOMYCIN 1,250 MG in SODIUM CHLORIDE 0.9% 250 ML IV ×3 (01:26→18:45)
[2019-10-05 04:41] VITALS: BP 137/63; PULSE 96; RESP 16; TEMP 36.4; O2SAT 100
[2019-10-05 06:34] LABS: Add Manual Diff / Slide Review NO; Basophils Absolute Auto 300 /uL (0-100); Basophils Percent Auto 2.2 % (0-2); Eosinophils Absolute Auto 400 /uL (0-450); Eosinophils Percent Auto 2.8 % (2-4); Hemoglobin 10.6 g/dL (12.0-16.0); Lymphocytes Absolute Auto 4200 /uL (1100-4500); Mean Corpuscular HGB Conc 34.3 % (30-36); Mean Corpuscular Hemoglobin 30.1 PG (26-34); Mean Corpuscular Volume 87.7 fL (80-100); Monocytes Absolute Auto 1200 /uL (0-900); Monocytes Percent Auto 8.6 % (3-14); Neutrophils Absolute Auto 7900 /uL (1500-7000); Neutrophils Percent Auto 56.4 % (50-75); Platelet Count 350 X10^3/uL (150-400); Red Blood Cell Count 3.53 X10^6/uL (4.0-5.2); Red Cell Distribution Width 13.6 % (11.6-14.8)
[2019-10-05] MEDS: SODIUM CHLORIDE 0.9% 1,000 ML 100 ML IV ×2 (06:38→15:39)
[2019-10-05 06:40] LABS: Magnesium 1.8 mg/dL (1.6-2.3)
[2019-10-05 06:41] LABS: BUN Creatinine Ratio 12.5 (6-22); Blood Urea Nitrogen 5 mg/dL (7-17); Calcium 8.6 mg/dL (8.4-10.2); Carbon Dioxide 20 mmol/L (22-32); Chloride 110 mmol/L (98-107); Estimated Glomerular Filt Rate > 60.0 mL/min (>60); Glucose 87 mg/dL (70-100); HEMOLYSIS < 15 (0-50); Sodium 135 mmol/L (137-145)
[2019-10-05 07:42] VITALS: BP 137/69; PULSE 84; RESP 16; TEMP 37.2; O2SAT 99
--- NOTE | 2019-10-05 09:15 | CM.DANOTE ---
DCP: Case received, EMR reviewed and met with patient. Introduced self and role. Was able to meet with patient briefly in her room to obtain some baseline history information. DCP assessment completed with information currently available. Patient is a 39 year old female who admitted yesterday morning to the care of the hospitalist team. PCP: Dr. Davis, in [facility]. Payer: confirmed: [facility]. Patient came to the hospital via family vehicle secondary to nausea and vomiting. Patient is a diabetic type 1. She holds diagnosis of DKA with sepsis. Patient had been here recently with a scalp absess, and went home with antibiotics. Met with patient in her room. Quiet demeanor. She lives with her significant other, Dina. She is currently employed with [employer] in [employer], and [employer]. Asked her if she is managing her blood sugars, and having any difficulties doing so. Stated, she doesn't always monitor them like she should. Asked her about diabetic education here in hospital, which she stated, should help. P: DCP will follow closely, and see if she will have any needs upon returning home. Susie Smith RN/Phonograph Needle Tip Maker
[2019-10-05] MEDS: LEVOTHYROXINE 150 MCG TABLET PO (09:41)
[2019-10-05] MEDS: HEPARIN 5,000 UNIT/ML VIAL 5000 UNIT SUBCUT ×2 (09:41→20:43)
[2019-10-05] MEDS: POTASSIUM CHLORIDE 60 MEQ in SODIUM CHLORIDE 0.9% 500 ML 88.333 ML IV (09:41)
[2019-10-05] MEDS: SODIUM CHLORIDE 0.9% FLUSH 10 ML IV (09:42)
[2019-10-05] MEDS: INSULIN GLARGINE 100 UNIT/ML 3ML PEN 20 UNIT SUBCUT ×2 (09:44→21:23)
[2019-10-05 12:05] VITALS: BP 130/64; PULSE 90; RESP 16; TEMP 36.9; O2SAT 99
[2019-10-05] MEDS: INSULIN ASPART 100 UNIT/ML INSULN PEN SUBCUT ×3 (13:08→21:23)
--- NOTE | 2019-10-05 13:57 | DIET.PN ---
Dietary Progress Note Assessment: 39 yoF admitted for DKA with A1c of 11.1, BG of 627, pH 7.10, BiCarb 6, and ketones 10.45 with vomiting x 2 days, MRSA abscess on the head. She reports improvement in appetite today. Ms. Moya was admitted with DKA in August. At that time her A1c was 10.6. Per previous dietary note, Pt dx c T1D in 1994, went through DM education last when insulin pump was installed. Had pump removed r/t toddler daughter pulling out lines. Pt has gone through several PCPs in last couple years, and she is currently being seen at [facility] by Danisha SHELLEY. Pt lives c daughter and boyfriend, which continues to pose barriers as boyfriend is not familiar with T1DM. She reports attending several diabetes programs, but admits she does not always follow guidelines as recommended for glucose control. She is interested in setting up an outpatient appointment with this RD/CDE so her boyfriend can attend to gain better understanding and provide support. HT: 172.72cm WT: 78.1kg BMI: 26.2 Labs:A1c of 11.1, BG of 627, pH 7.10, BiCarb 6, and ketones 10.45 Medications: lantus: 25 u bedtime; humalog SSI: 1u:10 CHO w/ 1u per 50 >100mg/dl correctional Nutrition Diagnosis: Altered Nutrition related labs related to impaired glucose metabolism, not ready for lifestyle change as evidenced by pt report, dx of type 1 diabetes, previous diet high in refined carbohydrates, lack of support.? Interventions: 1. Pt would like to schedule an outpatient diabetes MNT appointment with boyfriend. 2. Discussed importance of strict glucose monitoring to support medication management. 3. Discussed medications. Agree with Dr. Fox in adjusting Lantus 20 u am/pm. Diet Order: CCD 2 Monitoring/Evaluations: f/u with referral to DEP MNT
--- NOTE | 2019-10-05 15:03 | P.PN_ITS ---
Subjective Subjective Date Patient Seen: 10/05/19 Interval history: Catina Moya is a 39-year-old female with Ppast medical history significant for diabetes mellitus type I with complication of diabetic retinopathy and hypertriglyceridemia, hypothyroidism, and migraines who presented for intractable vomiting. The patient is resting in bedside chair comfortably. She reports she feels much better. She has moderate amount of laryngitis from nausea vomiting, as well as, recent inner ear infection. She denies headache, ear pain, rhinitis, sore throat, cough, shortness of breath, chest pain, abdominal pain, nausea, vomiting, fever, chills, dysuria, diarrhea or constipation. She is voiding and eliminating without difficulty. She is up ambulating without assistance. Exam Vital Signs (past 8 hours): - 10/05/19 07:42 10/05/19 12:05 Temperature 99.0 F 98.5 F Pulse Rate 84 90 Respiratory Rate 16 16 Blood Pressure 137/69 130/64 Pulse Oximetry 99 99 Oxygen Delivery Method Room Air Oxygen Flow Rate 0 Narrative Exam Narrative: General: Middle aged female sitting in bedside chair and in no acute distress, well-developed, well-nourished, appropriately interactive. HEENT: Normocephalic, atraumatic. External ears without defect. Pupils equal, round, and reactive to light. Anicteric sclerae, moist conjunctivae, and no lid lag. Oropharynx mildly erythematous with moist mucosa. Moderate laryngitis, improving. 3 cm fluctuant mass/cyst on anterior right side of scalp with asso ciated alopecia. Neck: Supple with full range of motion. No lymphadenopathy or thyromegaly. Cardiovascular: Regular rhythm and rate without murmurs, rubs, or gallops appreciated Pulmonary: Clear to auscultation bilaterally without crackles, wheezes, or rhonchi. Normal respiratory effort with no use of accessory muscles. Abdomen: Soft, bowel sounds present, nontender, nondistended. No hepatosplen omegaly or masses appreciated. Extremities: No clubbing, cyanosis, or edema. Skin: Normal temperature, turgor, and texture; no rash, ulcers, or subcutaneous nodules appreciated. Neurological: Cranial nerves grossly intact. Psychiatric: Normal mood and affect. Alert and oriented to person, place, and time. Objective Labs Result Diagrams: 10/05/19 06:10 10/05/19 06:10 Labs: Laboratory Results - last 24 hr 10/05/19 10/05/19 10/05/19 06:10 06:10 06:10 WBC 14.0 H RBC 3.53 L Hgb 10.6 L Hct 31.0 L MCV 87.7 D MCH 30.1 MCHC 34.3 RDW 13.6 Plt Count 350 Neut % (Auto) 56.4 Lymph % (Auto) 30.0 [place] % (Auto) 8.6 Eos % (Auto) 2.8 Baso % (Auto) 2.2 H Neut # (Auto) 7900 H Lymph # (Auto) 4200 [place] # (Auto) 1200 H Eos # (Auto) 400 Baso # (Auto) 300 H Sodium 135 L Potassium 3.0 L Chloride 110 H Carbon Dioxide 20 L BUN 5 L Creatinine 0.40 L Estimated GFR > 60.0 BUN/Creatinine Ratio 12.5 Glucose 87 Calcium 8.6 Magnesium 1.8 Assessment & Plan Assessment & Plan narrative: Catina Moya is a 39-year-old female with Ppast medical history significant for diabetes mellitus type I with complication of diabetic retinopathy and hypertriglyceridemia, hypothyroidism, and migraines who presented for intractable vomiting. 1. Acute DKA with anion gap metabolic acidosis, present on admission. Resolved. -On admission VBG demonstrated metabolic acidosis with respiratory compensation pH 7.10 (adjusted for VBG 7.15), pCO2 18.1, and HC03 6. Glucose was 627. Ketones 10.4. Anion gap 30. -Continue to monitor closely on telemetry. -Received 1 L LR in ED. Initiated DKA protocol with insulin gtt, fluid replacement with several 1 L boluses normal saline then transitioned to 0.45% normal saline and then D5 0.45% normal saline until blood glucose was less than 250. Monitored blood glucose and electrolytes every 4 hours until anion gap closed and repleted electrolytes as necessary. Transitioned off insulin gtt and restarted home regimen. Continued Lantus increased from 30 units at bedtime to 20 units twice daily for better glycemic coverage and control and medium does correctional scale insulin. -Mg 1.8. Phos normal 2.9. UDS negative. -Continued supportive care with analgesics and anti-emetics available as needed. 2. MRSA infected trichilemmal cyst, present on admission. Active. -Patient developed hair follicle infection in mid [place] status post I&D and a 7 day antibiotic course with doxycycline. -Previous wound culture grew MRSA. Express purulence material and sent repeat wound culture preliminarily growing staph aureus with sensitivities to follow. -Initial WBC 27 and procalcitonin 0.12. WBC trending down now 14.0 and procalcitonin trending up and likely peaking now 0.16. Continue to monitor WBC and procalcitonin daily. -Continue vancomycin with dosing per pharmacist. -Consulted general surgery, Dr. Ulrich, who plans to perform I&D and cyst pocket removal tomorrow morning. NPO after midnight. 3. Diabetes mellitus type I, chronic, present on admission. Stable and uncontrolled. -Hemoglobin A1C 11.1% indicative of poor glycemic control with complication of diabetic retinopathy. -Restarted basal insulin with Lantus increased from 30 units daily at bedtime to Lantus 20 mg twice daily after treated DKA as above. -Continue ACHS blood glucose checks and medium dose correctional scale insulin. -Continue carbohydrate consistent diet. -Encouraged patient to establish care with endocrinology to get a new insulin pump or equipment for previous insulin pump and continue diabetic management for which she reports a referral has recently been placed by her PCP. 3. Hypothyroidism, chronic, present on admission. Active. -TSH low at 0.17 for and free T4 normal at 1.17. -Continued levothyroxine 150 mcg daily. Did not adjust dose as patient was acutely ill and recommended outpatient follow-up of thyroid function in next 1-2 weeks per PCP and possibly endocrinology in future. 4. Hypertension, chronic, present on admission. Stable. -Restarted lisinopril 2.5 mg daily. Initially held due to DKA with somnolence. 5. Hypertriglyceridemia, chronic, present on admission. Stable. -Secondary to diabetes mellitus type I. -Recent fasting lipid panel on 08/17/19 demonstrated: Total cholesterol 173, Triglycerides as expected elevated at 328, LDL 77, and HDL low at 30. -Continue to implement lifestyle modification with diet, exercise, and control diabetes. Code status: Full code VTE prophylaxis: SQ Heparin Disposition: Patient likely to discharge home possibly tomorrow or the following day after I&D and infection has been adequately treated.
[2019-10-05 15:27] VITALS: BP 136/65; PULSE 90; RESP 20; TEMP 37.1
[2019-10-05 16:36] LABS: Procalcitonin 0.16 ng/mL (<0.5)
[2019-10-05] MEDS: VANCOMYCIN TROUGH 1 REQUEST MISC (17:45)
--- NOTE | 2019-10-05 18:19 | P.CONS_ITS ---
History of Present Illness Consult details Date Patient Seen: 10/05/19 Time Patient Seen: 12:00 Chief complaint: vomiting since last night type I diabetic Reason for consult: Abscess Requesting provider: Denita Fox Narrative: The patient is a woman who was admitted in [place]. She had had an abscess on her scalp drained incompletely. This was over [place]. It has continued to drain intermittently. She was hospitalized with diabetic ketoacidosis which has been reversed and I was asked to see her regarding this abscess. She has not had this before. The patient has had diabetic ketoacidosis before however and can be brittle at times to control her sugar Meds Home Medications and Allergies Home Medications Medication Instructions Recorded Confirmed Type insulin lispro [Humalog U-100 0 unit INJ SEE INSTRUCTIONS 08/16/19 10/04/19 History Insulin] lisinopril 2.5 mg tablet 2.5 mg PO DAILY 09/08/19 10/04/19 History levothyroxine 175 mcg PO DAILY 09/09/19 10/04/19 History insulin glargine [Lantus Solostar 30 unit SUBCUT BEDTIME 10/04/19 10/04/19 History U-100 Insulin] Allergies Allergy/AdvReac Type Severity Reaction Status Date / Time ceftriaxone [From Rocephin] Allergy facial Verified 10/04/19 10:33 swelling Review of Systems Review of Systems Narrative: Patient has some by diabetic related eye problems. No swallowing difficulty. No cough cold or asthma. no chest pain or heart problems. No black or bloody bowel movements. No seizures or blackouts Exam Vital Signs (past 8 hours): - 10/05/19 12:05 10/05/19 15:27 Temperature 98.5 F 98.7 F Pulse Rate 90 90 Respiratory Rate 16 20 Blood Pressure 130/64 136/65 Pulse Oximetry 99 Oxygen Delivery Method Room Air Oxygen Flow Rate 0 Narrative Exam Narrative: Patient's hair front right scalp is missing. I don't know if this is because it was clipped with this is normally her appearance. In the center of this area is a raised reddened area that is fluctuant and consistent with an abscess. Her lungs are clear to auscultation no rales or rhonchi. Heart regular rate and rhythm without murmur gallop. Abdomen is soft nontender without mass. Objective Labs Result Diagrams: 10/05/19 06:10 10/05/19 06:10 Labs: Laboratory Results - last 24 hr 10/05/19 10/05/19 10/05/19 06:06 06:10 06:10 WBC 14.0 H RBC 3.53 L Hgb 10.6 L Hct 31.0 L MCV 87.7 D MCH 30.1 MCHC 34.3 RDW 13.6 Plt Count 350 Neut % (Auto) 56.4 Lymph % (Auto) 30.0 [place] % (Auto) 8.6 Eos % (Auto) 2.8 Baso % (Auto) 2.2 H Neut # (Auto) 7900 H Lymph # (Auto) 4200 [place] # (Auto) 1200 H Eos # (Auto) 400 Baso # (Auto) 300 H Sodium 135 L Potassium 3.0 L Chloride 110 H Carbon Dioxide 20 L BUN 5 L Creatinine 0.40 L Estimated GFR > 60.0 BUN/Creatinine Ratio 12.5 Glucose 87 Calcium 8.6 Magnesium Procalcitonin 0.16 10/05/19 06:10 WBC RBC Hgb Hct MCV MCH MCHC RDW Plt Count Neut % (Auto) Lymph % (Auto) [place] % (Auto) Eos % (Auto) Baso % (Auto) Neut # (Auto) Lymph # (Auto) [place] # (Auto) Eos # (Auto) Baso # (Auto) Sodium Potassium Chloride Carbon Dioxide BUN Creatinine Estimated GFR BUN/Creatinine Ratio Glucose Calcium Magnesium 1.8 Procalcitonin Assessment & Plan Assessment & Plan narrative: Patient with a scalp abscess recently treated over the last today for diabetic ketoacidosis which has resolved. I've been asked to definitively treat this abscess. I think this is best done in the [facility]. The abscess measures about 5 x 2 cm. It may contain the cyst wall which should be removed. Apparently has grown MRSA and the patient is on vancomycin at this time. I talked to the patient about the procedure. Will probably do under general anesthesia though I may be able to do it with monitored anesthesia care and local anesthetic. Will have that discussion tomorrow with the anesthesiologist. The patient has eaten today and therefore I don't think it appropriate to proceed to the operating room given the small size of this lesion and they present treatment.
[2019-10-05 18:22] LABS: Vancomycin Trough 11.5 ug/mL (10-20)
[2019-10-05] MEDS: LISINOPRIL 5 MG TABLET 2.5 MG PO (18:44)
[2019-10-05 20:00] VITALS: BP 147/70; PULSE 88; RESP 18; TEMP 37
--- NOTE | 2019-10-05 20:55 | PC.NURSE ---
2000 - Pt set up for shower. Denies pain. ABX infusion complete. Following shower, PICC line drsg change. Educated to NPO after MN, Pt verbalized understanding. Reinforced safety. Call light in reach.
[2019-10-06] VITALS (14 sets, daily range): BP systolic 116–157; BP diastolic 61–79; PULSE 74–87; RESP 12–18; TEMP 36.1–36.8; O2SAT 96–100
[2019-10-06] MEDS: VANCOMYCIN 1,250 MG in SODIUM CHLORIDE 0.9% 250 ML IV ×3 (02:31→17:57)
[2019-10-06] MEDS: SODIUM CHLORIDE 0.9% 1,000 ML 100 ML IV (03:28)
[2019-10-06 05:21] LABS: Add Manual Diff / Slide Review NO; Basophils Absolute Auto 200 /uL (0-100); Basophils Percent Auto 1.7 % (0-2); Eosinophils Absolute Auto 400 /uL (0-450); Eosinophils Percent Auto 4.3 % (2-4); Hematocrit 30.2 % (36-46); Hemoglobin 10.6 g/dL (12.0-16.0); Lymphocytes Absolute Auto 4900 /uL (1100-4500); Lymphocytes Percent Auto 49.1 % (25-40); Mean Corpuscular HGB Conc 35.2 % (30-36); Mean Corpuscular Hemoglobin 31.1 PG (26-34); Mean Corpuscular Volume 88.3 fL (80-100); Monocytes Absolute Auto 700 /uL (0-900); Monocytes Percent Auto 6.8 % (3-14); Neutrophils Absolute Auto 3800 /uL (1500-7000); Neutrophils Percent Auto 38.1 % (50-75); Platelet Count 331 X10^3/uL (150-400); Red Blood Cell Count 3.43 X10^6/uL (4.0-5.2); Red Cell Distribution Width 13.9 % (11.6-14.8)
[2019-10-06 05:40] LABS: Blood Urea Nitrogen 6 mg/dL (7-17); Calcium 8.3 mg/dL (8.4-10.2); Carbon Dioxide 21 mmol/L (22-32); Chloride 109 mmol/L (98-107); Estimated Glomerular Filt Rate > 60.0 mL/min (>60); Glucose 152 mg/dL (70-100); HEMOLYSIS < 15 (0-50); Magnesium 1.7 mg/dL (1.6-2.3); Potassium 3.2 mmol/L (3.4-5.1); Sodium 136 mmol/L (137-145)
[2019-10-06] MEDS: LEVOTHYROXINE 150 MCG TABLET PO (05:50)
[2019-10-06 06:08] LABS: Procalcitonin 0.08 ng/mL (<0.5)
--- NOTE | 2019-10-06 06:39 | PC.NURSE ---
Energy Conservation Technician Note-Patient is A/Ox3, uses call light appropriately. NPO after MN except meds. Denies pain, SR, VSS. CBG = 173 at 0230.
[2019-10-06] MEDS: HEPARIN 5,000 UNIT/ML VIAL 5000 UNIT SUBCUT ×2 (09:04→20:56)
[2019-10-06] MEDS: POTASSIUM CHLORIDE 20 MEQ in SODIUM CHLORIDE 0.9% 250 ML 130 ML IV (09:05)
[2019-10-06] MEDS: INSULIN GLARGINE 100 UNIT/ML 3ML PEN 20 UNIT SUBCUT ×2 (09:07→20:56)
[2019-10-06] MEDS: SODIUM CHLORIDE 0.9% FLUSH 10 ML IV ×2 (09:07→21:00)
[2019-10-06] MEDS: LISINOPRIL 5 MG TABLET 2.5 MG PO (09:07)
[2019-10-06] MEDS: LACTATED RINGERS 1,000 ML 42 ML IV (11:10)
[2019-10-06] MEDS: FAMOTIDINE 20 MG/50 ML PIGGYBACK 200 MG IV (11:11)
--- NOTE | 2019-10-06 11:45 | SUR.OPER ---
Supine on padded OR bed, head on pillow, arms secured on padded arm boards at <90 degrees abduction, legs uncrossed, safety belt at thigh, tape over blanket over lower legs.
[2019-10-06] MEDS: BUPIVACAINE 0.5% W/ EPI (PF) 30 ML VIAL INJ (11:51)
--- NOTE | 2019-10-06 12:11 | SUR.OPER ---
PATIENT RECOVERED IN OR 1 BY PACU STAFF.REPORT GIVEN
--- NOTE | 2019-10-06 13:09 | PM.OP.1 ---
Operative Date/Time/Diagnoses Date of procedure: 10/06/19 Time of procedure: 12:00 Pre-op diagnosis: Infected lesion right anterior scalp Post-op diagnosis: same Procedure & Clinicians Procedure: Drainage in excision of wall Same procedure as scheduled: Yes Indications: Persistently infected lesion scalp Surgeon: Antonio Ulrich Click Yes if Unassisted: Yes Anesthesia Type: General Operative Notes Findings: Wall removed in pieces. Great deal of inflammatory response in the region Closure Type: not applicable Specimen(s): none sent Estimated Blood Loss (mL): 15 Blood products transfused: none Procedure in detail: Patient was placed supine on the operating room table and underwent general LMA anesthesia. Area was prepped and draped incision was made over the lesion after injecting local anesthetic in a field block fashion around it. The contents were suction free the wall was removed in pieces and curetted hemostasis was achieved with cautery the wound was packed dressing was applied the patient was recovered in the room due to her MRSA infection. Lesion measured 5 x 2 cm Complications: none Post-operative Condition: stable Disposition: Acute Care (After recovery)
--- NOTE | 2019-10-06 13:33 | PC.NURSE ---
Day Shift Note Pt to surgery at 1100 via stretcher, NPO since midnight. Received pt back to room 228 at 1240. Slightly drowsy but answering all questions appropriately and opening eyes spontaneously. Denies pain, denies nausea. Dressing to forehead is C/D/I. SpO2 98% on RA. Call light within reach, using appropriately to make needs known. Ice chips provided.
--- NOTE | 2019-10-06 16:31 | PM.PN.1 ---
Subjective Subjective Date Patient Seen: 10/06/19 Time Patient Seen: 09:00 Interval history: Catina Moya is a 39-year-old female with Ppast medical history significant for diabetes mellitus type I with complication of diabetic retinopathy and hypertriglyceridemia, hypothyroidism, and migraines who presented for intractable vomiting and was admitted for DKA. The patient is resting in hospital bed comfortably, with legs crossed. She reports she feels much better. She has moderate amount of laryngitis from nausea vomiting, as well as, recent inner ear infection. She denies headache, ear pain, rhinitis, sore throat, cough, shortness of breath, chest pain, abdominal pain, nausea, vomiting, fever, chills, dysuria, diarrhea or constipation. She is voiding and eliminating without difficulty. She is up ambulating without assistance. This afternoon she underwent surgical excision of her skin scalp fluid collection. Previous cultures have grown MRSA. Operative cultures are pending. Exam Vital Signs (past 8 hours): - 10/06/19 08:35 10/06/19 11:10 10/06/19 12:10 Temperature 98.3 F 98.2 F 97.0 F L Pulse Rate 82 77 77 Respiratory Rate 16 15 15 Blood Pressure 140/65 150/79 H 116/66 Pulse Oximetry 98 96 100 10/06/19 12:15 10/06/19 12:20 10/06/19 12:24 Temperature Pulse Rate 78 76 86 Respiratory Rate 16 12 16 Blood Pressure 126/69 121/70 134/71 Pulse Oximetry 100 100 100 10/06/19 12:31 10/06/19 12:40 10/06/19 13:00 Temperature 97.8 F 97.6 F Pulse Rate 76 82 74 Respiratory Rate 16 14 15 Blood Pressure 133/67 157/74 H 123/69 Pulse Oximetry 100 99 98 10/06/19 13:31 10/06/19 15:36 Temperature 98.1 F 97.6 F Pulse Rate 78 77 Respiratory Rate 15 18 Blood Pressure 136/68 133/67 Pulse Oximetry 97 100 Oxygen Delivery Method Room Air Oxygen Flow Rate 0 Narrative Exam Narrative: General: Middle aged female sitting hospital bed, legs crossed, well-developed, well-nourished, appropriately interactive. HEENT: Normocephalic, atraumatic. External ears without defect. Pupils equal, round, and reactive to light. Anicteric sclerae, moist conjunctivae, and no lid lag. Oropharynx mildly erythematous with moist mucosa. Moderate laryngitis, improving. 3 cm fluctuant mass/cyst on anterior right side of scalp with associated alopecia. Neck: Supple with full range of motion. No lymphadenopathy or thyromegaly. Cardiovascular: Regular rhythm and rate without murmurs, rubs, or gallops appreciated Pulmonary: Clear to auscultation bilaterally without crackles, wheezes, or rhonchi. Normal respiratory effort with no use of accessory muscles. Abdomen: Soft, bowel sounds present, nontender, nondistended. No hepatosplenomegaly or masses appreciated. Extremities: No clubbing, cyanosis, or edema. Skin: Normal temperature, turgor, and texture; no rash, ulcers, or subcutaneous nodules appreciated. Neurological: Cranial nerves grossly intact. Psychiatric: Normal mood and affect. Alert and oriented to person, place, and time. Objective Labs Result Diagrams: 10/06/19 05:00 10/06/19 05:00 Labs: Laboratory Results - last 24 hr 10/05/19 10/05/19 10/06/19 06:06 17:55 05:00 WBC 10.0 RBC 3.43 L Hgb 10.6 L Hct 30.2 L MCV 88.3 MCH 31.1 MCHC 35.2 RDW 13.9 Plt Count 331 Neut % (Auto) 38.1 L Lymph % (Auto) 49.1 H [place] % (Auto) 6.8 Eos % (Auto) 4.3 H Baso % (Auto) 1.7 Neut # (Auto) 3800 Lymph # (Auto) 4900 H [place] # (Auto) 700 Eos # (Auto) 400 Baso # (Auto) 200 H Sodium Potassium Chloride Carbon Dioxide BUN Creatinine Estimated GFR BUN/Creatinine Ratio Glucose Calcium Magnesium Procalcitonin 0.16 Vancomycin Trough 11.5 10/06/19 10/06/19 05:00 05:00 WBC RBC Hgb Hct MCV MCH MCHC RDW Plt Count Neut % (Auto) Lymph % (Auto) [place] % (Auto) Eos % (Auto) Baso % (Auto) Neut # (Auto) Lymph # (Auto) [place] # (Auto) Eos # (Auto) Baso # (Auto) Sodium 136 L Potassium 3.2 L Chloride 109 H Carbon Dioxide 21 L BUN 6 L Creatinine 0.40 L Estimated GFR > 60.0 BUN/Creatinine Ratio 15.0 Glucose 152 H Calcium 8.3 L Magnesium 1.7 Procalcitonin 0.08 Vancomycin Trough Assessment & Plan Assessment & Plan narrative: Catina Moya is a 39-year-old female with Ppast medical history significant for diabetes mellitus type I with complication of diabetic retinopathy and hypertriglyceridemia, hypothyroidism, and migraines who presented for intractable vomiting. 1. Acute DKA with anion gap metabolic acidosis, present on admission. Resolved. -On admission VBG demonstrated metabolic acidosis with respiratory compensation pH 7.10 (adjusted for VBG 7.15), pCO2 18.1, and HC03 6. Glucose was 627. Ketones 10.4. Anion gap 30. -Continue to monitor closely on telemetry. -Received 1 L LR in ED. Initiated DKA protocol with insulin gtt, fluid replacement with several 1 L boluses normal saline then transitioned to 0.45% normal saline and then D5 0.45% normal saline until blood glucose was less than 250. Monitored blood glucose and electrolytes every 4 hours until anion gap closed and repleted electrolytes as necessary. Transitioned off insulin gtt and restarted home regimen. Continued Lantus increased from 30 units at bedtime to 20 units twice daily for better glycemic coverage and control and medium does correctional scale insulin. -Mg 1.8. Phos normal 2.9. UDS negative. -Continued supportive care with analgesics and anti-emetics available as needed. 2. MRSA infected trichilemmal cyst, present on admission. Active. -Patient developed hair follicle infection in mid August status post I&D and a 7 day antibiotic course with doxycycline. -Previous wound culture grew MRSA. Express purulence material and sent repeat wound culture preliminarily growing staph aureus with sensitivities to follow. -Initial WBC 27 and procalcitonin 0.12. WBC trending down now 14.0 and procalcitonin trending up and likely peaking now 0.16. Continue to monitor WBC and procalcitonin daily. -Continue vancomycin with dosing per pharmacist. -Consulted general surgery, Dr. Ulrich, and patient is now status post I and D. 3. Diabetes mellitus type I, chronic, present on admission. Stable and uncontrolled. -Hemoglobin A1C 11.1% indicative of poor glycemic control with complication of diabetic retinopathy. -Restarted basal insulin with Lantus increased from 30 units daily at bedtime to Lantus 20 mg twice daily after treated DKA as above. -Continue ACHS blood glucose checks and medium dose correctional scale insulin. -Continue carbohydrate consistent diet. -Encouraged patient to establish care with endocrinology to get a new insulin pump or equipment for previous insulin pump and continue diabetic management for which she reports a referral has recently been placed by her PCP. 3. Hypothyroidism, chronic, present on admission. Active. -TSH low at 0.17 for and free T4 normal at 1.17. -Continued levothyroxine 150 mcg daily. Did not adjust dose as patient was acutely ill and recommended outpatient follow-up of thyroid function in next 1-2 weeks per PCP and possibly endocrinology in future. 4. Hypertension, chronic, present on admission. Stable. -Restarted lisinopril 2.5 mg daily. Initially held due to DKA with somnolence. 5. Hypertriglyceridemia, chronic, present on admission. Stable. -Secondary to diabetes mellitus type I. -Recent fasting lipid panel on 08/17/19 demonstrated: Total cholesterol 173, Triglycerides as expected elevated at 328, LDL 77, and HDL low at 30. -Continue to implement lifestyle modification with diet, exercise, and control diabetes. Code status: Full code VTE prophylaxis: SQ Heparin Disposition: Patient likely to discharge home possibly tomorrow with oral antibiotics.
[2019-10-06] MEDS: ACETAMINOPHEN 325 MG TABLET 650 MG PO (17:05)
--- NOTE | 2019-10-06 19:32 | PC.NURSE ---
1930 -Pt resting in bed. Drsg had slide off the top of patient's head. Drsg changed. Pt tolerated well. Decreased erythema to surrounding tissue compared to yesterday, pre-I&D. Abx infusion complete. PICC heparin locked. Call light in reach.
[2019-10-06] MEDS: INSULIN ASPART 100 UNIT/ML INSULN PEN SUBCUT (20:57)
[2019-10-07] VITALS: BP 108/58; PULSE 89; RESP 16; TEMP 36.4; O2SAT 98
[2019-10-07] MEDS: VANCOMYCIN 1,250 MG in SODIUM CHLORIDE 0.9% 250 ML IV ×2 (02:15→11:18)
[2019-10-07 04:34] VITALS: BP 136/74; PULSE 80; RESP 16; TEMP 37.1; O2SAT 99
[2019-10-07] MEDS: LEVOTHYROXINE 150 MCG TABLET PO (05:45)
[2019-10-07 08:00] VITALS: BP 138/75; PULSE 83; RESP 20; TEMP 36.6; O2SAT 99
--- NOTE | 2019-10-07 08:36 | P.DS_ITS ---
History of Present Illness History of Present Illness Date Patient Seen: 10/07/19 Time Patient Seen: 08:36 Chief complaint: vomiting since last night type I diabetic Narrative: As per KARSTEN Solano: Patient is unable to provide a history, this is provided by the ED provider and her sister. She was noted to be vomiting since 11 pm the previous night. While in the room, the patient is restless and unable to position herself to comfort insisting on being able to sit on a chair. Stated it was in her mid-back and chest. Per the ED provider, she was treated for a MRSA abcess on her head, per the note, she was administered one dose of vancomycin, it was drained and was discharged on doxycyline. Discharge Providers Provider Date of admission: 10/04/19 06:57 Discharge Date: 10/07/19 Consults: 10/05/19 08:40 Consult to Dietitian, Adult Routine Comment: Reason For Exam: diabetic education 10/05/19 08:50 Consult to General Surgery Routine Comment: Consulting Provider: Antonio Ulrich Reason for consultation: Scalp abscess Has provider been notified: Yes Discharge provider: Dominic De Anda DO Summary Hospital Course Discharge Diagnosis: 1. Acute DKA with anion gap metabolic acidosis, present on admission. Resolved. 2. MRSA infected trichilemmal cyst, present on admission. Active. 3. Diabetes mellitus type I, chronic, present on admission. Stable and uncontrolled. 4. Hypothyroidism, chronic, present on admission. Active. 5. Hypertension, chronic, present on admission. Stable. 6. Hypertriglyceridemia, chronic, present on admission. Stable. Hospital Course: Catina Moya is a 39-year-old female with Ppast medical history significant for diabetes mellitus type I with complication of diabetic retinopathy and hypertriglyceridemia, hypothyroidism, and migraines who presented for intractable vomiting. She was admitted with DKA which resolved. She further had a trichilemmal cyst which was excised by surgery, and she was discharged again on oral antibiotics. 1. Acute DKA with anion gap metabolic acidosis, present on admission. Resolved. -On admission VBG demonstrated metabolic acidosis with respiratory compensation pH 7.10 (adjusted for VBG 7.15), pCO2 18.1, and HC03 6. Glucose was 627. Ketones 10.4. Anion gap 30. -Received 1 L LR in ED. Initiated DKA protocol with insulin gtt, fluid replacement with several 1 L boluses normal saline then transitioned to 0.45% normal saline and then D5 0.45% normal saline until blood glucose was less than 250. Monitored blood glucose and electrolytes every 4 hours until anion gap closed and repleted electrolytes as necessary. Transitioned off insulin gtt and restarted home regimen. Continued Lantus increased from 30 units at bedtime to 20 units twice daily for better glycemic coverage and control and medium does correctional scale insulin. She was recommended to continue 20 units BID as an outpatient. -Mg 1.8. Phos normal 2.9. UDS negative. -Continued supportive care with analgesics and anti-emetics available as needed. 2. MRSA infected trichilemmal cyst, present on admission. Active. -Patient developed hair follicle infection in mid August status post I&D and a 7 day antibiotic course with doxycycline. -Previous wound culture grew MRSA. Express purulence material and sent repeat wound culture which grew MRSA. -Continue vancomycin with dosing per pharmacist. -Consulted general surgery, Dr. Ulrich, and patient is now status post excision. She did well following the procedure. She will be discharged again on 7 days of doxycycline. 3. Diabetes mellitus type I, chronic, present on admission. Stable and uncontrolled. -Hemoglobin A1C 11.1% indicative of poor glycemic control with complication of diabetic retinopathy. -Restarted basal insulin with Lantus increased from 30 units daily at bedtime to Lantus 20 mg twice daily after treated DKA as above. -Encouraged patient to establish care with endocrinology to get a new insulin pump or equipment for previous insulin pump and continue diabetic management for which she reports a referral has recently been placed by her PCP. 4. Hypothyroidism, chronic, present on admission. Active. -TSH low at 0.17 for and free T4 normal at 1.17. -Continued levothyroxine 150 mcg daily. Did not adjust dose as patient was acutely ill and recommended outpatient follow-up of thyroid function in next 1-2 weeks per PCP and possibly endocrinology in future. 5. Hypertension, chronic, present on admission. Stable. -Restarted lisinopril 2.5 mg daily. Initially held due to DKA with somnolence. 6. Hypertriglyceridemia, chronic, present on admission. Stable. -Secondary to diabetes mellitus type I. -Recent fasting lipid panel on 08/17/19 demonstrated: Total cholesterol 173, Triglycerides as expected elevated at 328, LDL 77, and HDL low at 30. -Continue to implement lifestyle modification with diet, exercise, and control diabetes. 7. Sepsis, ruled out. Patient presented with DKA, elevated lactate and there was concern for sepsis given her MRSA wound. Her SOFA score did not meet sepsis definition. Patient was discharged home. Time Spent with Patient Time spent: Greater than 30 minutes Exam Vital Signs (past 8 hours): - 10/07/19 04:34 10/07/19 08:00 Temperature 98.7 F 97.8 F Pulse Rate 80 83 Respiratory Rate 16 20 Blood Pressure 136/74 138/75 Pulse Oximetry 99 99 Oxygen Delivery Method Room Air Oxygen Flow Rate 0 Narrative Exam Narrative: General: Middle aged female sitting hospital bed, legs crossed, well-developed, well-nourished, appropriately interactive. HEENT: Normocephalic, atraumatic. External ears without defect. Pupils equal, round, and reactive to light. Anicteric sclerae, moist conjunctivae, and no lid lag. Oropharynx mildly erythematous with moist mucosa. Moderate laryngitis, improving. dressing c/d/i on R forehead s/p scalp cyst excision. Neck: Supple with full range of motion. No lymphadenopathy or thyromegaly. Cardiovascular: Regular rhythm and rate without murmurs, rubs, or gallops appreciated Pulmonary: Clear to auscultation bilaterally without crackles, wheezes, or rhonchi. Normal respiratory effort with no use of accessory muscles. Abdomen: Soft, bowel sounds present, nontender, nondistended. No hepatosp lenomegaly or masses appreciated. Extremities: No clubbing, cyanosis, or edema. Skin: Normal temperature, turgor, and texture; no rash, ulcers, or subcutaneous nodules appreciated. Neurological: Cranial nerves grossly intact. Psychiatric: Normal mood and affect. Alert and oriented to person, place, and time. Objective Labs Result Diagrams: 10/06/19 05:00 10/06/19 05:00 Discharge Plan Discharge Plan Patient Disposition: Home Discharge comment: You were admitted to the hospital with diabetic ketoacidosis. You improved with an insulin infusion and your blood sugars are well controlled currently. I do recommend that you increase your Lantus dosing to 20 units b.i.d. from 30 units at bedtime assist provided you good control while here. I do recommend that you try and return to an insulin pump, but he will need to find an supervisor aircraft cleaning first. You should ask for an additional referral, if time is of importance consider going into [place] for endocrinology as they have more providers there. Because of a low TSH, your thyroid medicine was also reduced from 175-150 mcg. You should follow-up with your primary care provider for repeat thyroid testing in 4-6 weeks. Discharge orders & Medications Prescriptions: New Lantus Solostar U-100 Insulin 100 unit/mL (3 mL) Insulin Pen 20 unit subcut BID 30 Days Qty: 12 RF: 0 levothyroxine 150 mcg Tablet 150 mcg PO 0600 30 Days Qty: 30 RF: 0 doxycycline hyclate 100 mg capsule 100 mg PO BID 7 Days Qty: 14 RF: 0 Continued lisinopril 2.5 mg tablet 2.5 mg PO DAILY RF: 0 insulin lispro [Humalog U-100 Insulin] 100 UNIT/1 ML solution 0 unit INJ SEE INSTRUCTIONS RF: 0 Discontinued Lantus Solostar U-100 Insulin 100 unit/mL (3 mL) Insulin Pen 30 unit SUBCUT BEDTIME RF: 0 levothyroxine 175 mcg Tablet 175 mcg PO DAILY RF: 0 Follow up/Referrals: Antonio Ulrich MD [Physician] - 10/11/19 3:45 pm Discharge Health Status Health Concerns: MRSA skin infection DKA hypothyroidism with dosing change Diet/Activity/Treatments Diet: Diet as Tolerated and Carb-consistent/Diabetic Activity: As tolerated Skin/Wound/Dressing Care Dressing: As directed per surgery Visit Report/Discharge Packet Instructions: [facility]: Wound Care, Doxycycline (By mouth) Discharges patient from system. Discharge Date/Time: 10/07/19 15:04
[2019-10-07] MEDS: INSULIN GLARGINE 100 UNIT/ML 3ML PEN 20 UNIT SUBCUT (08:58)
[2019-10-07] MEDS: LISINOPRIL 5 MG TABLET 2.5 MG PO (08:59)
[2019-10-07] MEDS: HEPARIN 5,000 UNIT/ML VIAL 5000 UNIT SUBCUT (09:00)
[2019-10-07] MEDS: SODIUM CHLORIDE 0.9% FLUSH 10 ML IV (09:01)
--- NOTE | 2019-10-07 09:21 | CM.DPC ---
DCP: continued: case received and d/c to home setting is noted. EMR reviewed. Pt will followup with her PCP and hospitalist has recommended that pt see an endrocrinologist. P: home today. will follow prn
[2019-10-07 12:00] VITALS: BP 144/77; PULSE 78; RESP 18; TEMP 36.6; O2SAT 98
[2019-10-07] MEDS: INSULIN ASPART 100 UNIT/ML INSULN PEN SUBCUT (13:03)
--- NOTE | 2019-10-07 13:13 | PC.NURSE ---
Addendum entered by Purnima Tejeda R.N. 10/07/19 14:58: D/c teaching completed, dressing change orders reviewed with . Pt ambulating indep. to visit Pt on way to vehicle, declines w/c or staff assist. Addendum entered by Purnima Tejeda R.N. 10/07/19 14:38: Wet to dry dressing change done. Dr Pierre contacted, and Pt will have follow up on 10/11. Cont wet to dry dressing changes daily at home. Original Note: Am shift Pt is A/o x4, indep in room. Dressing to scalp with serosang dressing. Reinforced. Pt is denying pain and blood sugar is 130 this am. Pt is ready to d/c and awaits rounding by surgery. Reviewed d/c information with Pt and spouse.
== END 2019-10-07 15:04 | disposition home or self-care (01) | DRG 623 ==
LOC: ED 06:57 → AC 06:58 → ICU 07:57
PROVIDERS: Internal Medicine; Nurse Practitioner Gerontology; Specialist; Admitting Provider Nurse Practitioner Family; Emergency Provider Emergency Medicine; Visit Provider Nurse Practitioner Family
PROC: 0JB00ZZ Excision of Scalp Subcutaneous Tissue and Fascia, Open Approach (ICD-10-PCS; principal; 2019-10-06 12:00)
DX: E10.10 Type 1 diabetes mellitus with ketoacidosis without coma (principal); Z16.11 Resistance to penicillins; L02.811 Cutaneous abscess of head [any part, except face]; E87.5 Hyperkalemia; E10.319 Type 1 diabetes mellitus with unspecified diabetic retinopathy without macular edema; L72.12 Trichodermal cyst; B95.62 Methicillin resistant Staphylococcus aureus infection as the cause of diseases classified elsewhere; E03.9 Hypothyroidism, unspecified; I10 Essential (primary) hypertension; E78.1 Pure hyperglyceridemia; Z79.4 Long term (current) use of insulin
CPT/HCPCS: 10060; 36415; 36569; 36592; 36600; 71045; 80048; 80053; 80202; 80305; 81025; 82009; 82805; 82962; 83036; 83605; 83735; 84100; 84145; 84439; 84443; 85025; 87040; 87070; 87077; 87086; 87147; 87186; 87205; 87633; 87797; 93005; 99232; 99284; J1200; J1642; J1644; J2250; J2405; J2704; J2765; J3010; J3480

== ENCOUNTER 2020-02-18 19:02 | Emergency (ER) | payer OTHER, SELFPAY ==
[2019-10-11 16:07] VITALS: BMI 24.5
[2020-02-18 19:20] VITALS: BP 166/91; PULSE 95; RESP 16; TEMP 36.7; O2SAT 100; BMI 26.1
[2020-02-18 19:53] LABS: Add Manual Diff / Slide Review NO; Basophils Absolute Auto 0 /uL (0-100); Basophils Percent Auto 0.2 % (0-2); Eosinophils Absolute Auto 1000 /uL (0-450); Eosinophils Percent Auto 6.2 % (2-4); Hematocrit 33.9 % (36-46); Hemoglobin 11.6 g/dL (12.0-16.0); Lymphocytes Absolute Auto 4200 /uL (1100-4500); Mean Corpuscular HGB Conc 34.2 % (30-36); Mean Corpuscular Hemoglobin 30.3 PG (26-34); Mean Corpuscular Volume 88.7 fL (80-100); Monocytes Absolute Auto 1100 /uL (0-900); Monocytes Percent Auto 6.9 % (3-14); Neutrophils Absolute Auto 9800 /uL (1500-7000); Neutrophils Percent Auto 60.7 % (50-75); Platelet Count 502 X10^3/uL (150-400); Red Blood Cell Count 3.82 X10^6/uL (4.0-5.2); Red Cell Distribution Width 15.5 % (11.6-14.8); White Blood Cell Count 16.1 X10^3/uL (4.5-11.0)
--- NOTE | 2020-02-18 19:56 | ED_ITS ---
HPI - Skin/Abscess/Foreign Bdy General Chief complaint: Skin/Abscess/Foreign Body Stated complaint: states abcess on back of her head thats growing Time Seen by Provider: 02/18/20 19:25 Source: patient Mode of arrival: Ambulatory Limitations: no limitations History of Present Illness HPI narrative: 39-year-old female nonsmoker with a history of type 1 diabetes and frequent visits for DKA presents with a painful tender mass on the back of her scalp over the past few days. It has been spontaneously draining a small amount of purulence fluid. She was seen earlier in the year for a large abscess on the top of her scalp, this is in a new location. She denies any fever or chills nor generalized weakness. She denies nausea, vomiting or abdominal pain. She states that she does not feel like her diabetes is acting up. MD complaint: abscess/boil Onset (ago): day(s) Tetanus up to date: yes Location: head Severity: moderate Quality: aching Pain Consistency: constant Relieving factors: none Exacerbating factors: palpation Context: none Associated symptoms: denies other symptoms Treatments prior to arrival: bandages and attempted to drain pus at home Related Data Home Medications Medication Instructions Recorded Confirmed insulin lispro [Humalog U-100 0 unit INJ SEE INSTRUCTIONS 08/16/19 11/16/19 Insulin] lisinopril 2.5 mg tablet 2.5 mg PO DAILY 09/08/19 11/16/19 Previous Rx's Medication Instructions Recorded mupirocin 2 % topical ointment 1 applictn TOP DAILY #30 gram 10/11/19 doxycycline hyclate 100 mg PO BID #20 tab 02/18/20 hydrocodone-acetaminophen 1 tab PO Q4-6H PRN #10 tab 02/18/20 Allergies Allergy/AdvReac Type Severity Reaction Status Date / Time ceftriaxone [From Rocephin] Allergy facial Verified 02/18/20 19:19 swelling Review of Systems Constitutional Constitutional: Denies chills, Denies fatigue, Denies fever(s), Denies frequent falls, Denies lethargy and Denies weakness Eyes Eyes: Denies change in vision, Denies eye discharge, Denies irritation and Denies loss of vision ENT Ears, Nose, Mouth, and Throat: Denies change in voice, Denies dizziness, Denies neck pain, Denies sore throat and Denies throat swelling Cardiovascular Cardiovascular: Denies chest pain, Denies irregular heart rhythm, Denies lightheadedness, Denies palpitations, Denies dyspnea, Denies dyspnea on exertion and Denies orthopnea Respiratory Respiratory: Denies cough, Denies dyspnea, Denies dyspnea on exertion and Denies wheezing Gastrointestinal Gastrointestinal: Denies abdominal pain, Denies change in bowel habits, Denies diarrhea, Denies nausea and Denies vomiting Musculoskeletal Musculoskeletal: Denies neck pain and Denies numbness Integumentary/Breasts Skin/Breast: Denies pruritus, Denies erythema, Denies rash, Reports skin pain, Reports skin swelling and Reports wounds Neurologic Neurologic: Denies behavioral changes, Denies confusion, Denies dizziness, Denies frequent falls, Denies loss of vision, Denies numbness and Denies weakness Psychiatric Psychiatric: Denies anxiety, Denies behavioral changes, Denies confusion, Denies depression, Denies homicidal ideation and Denies suicidal ideation Endocrine Endocrine: Denies fatigue, Denies flushing and Denies palpitations Hematologic/Lymphatic Hematologic/Lymphatic: Denies easy bruising Allergic/Immunologic Allergic/Immunologic: Denies urticaria, Denies throat swelling and Denies wheezing Patient History Medical History Abscess (Acute) Diabetes mellitus type 1 with complications (Chronic ~1994) Diabetic retinopathy (Chronic 09/21/17) Dyslipidemia (Chronic) Hypothyroid (Chronic ~1991) Surgical History Status post hysteroscopy Status post myringotomy with insertion of tube Family History Father Age: 64 High cholesterol Grandfather Age: 90 Diabetes mellitus Grandmother Age: 87 Breast cancer Mother Age: 64 High cholesterol Grandmother Cancer Heart disease Sister Age: 42 High cholesterol Social History household members: significant other and children Smoking Status: Never smoker Smoking Status: Never smoker alcohol intake frequency: holidays/special occasions only Substance Use Type: does not use Exam Narrative Exam Narrative: GENERAL: [39] year old patient appears stated age. Well- nourished, well-developed patient, in mild distress. HEAD: Atraumatic. Normocephalic. 2 cm x 2 cm mildly fluctuant and tender mass her occiput with some crusting and suggestion of spontaneous drainage. Very minimal surrounding erythema EYES: Pupils equal round and reactive. Extraocular motions intact. No scleral icterus. No injection or drainage. ENT: Nose without bleeding, purulent drainage. Throat without erythema, tonsillar hypertrophy or exudate. Airway patent. NECK: Trachea midline. Non tender CARDIOVASCULAR: Regular rate and rhythm without murmurs, gallops, or rubs. RESPIRATORY: Clear to auscultation. Breath sounds equal bilaterally. No wheezes, rales, or rhonchi. GASTROINTESTINAL: Abdomen soft, non-tender, nondistended. EXTREMITIES: No edema or joint tenderness. BACK: Nontender without deformity or crepitance. No flank tenderness. NEURO: AOx3. SKIN: No rash or erythema of visible areas Initial Vital Signs Initial Vital Signs: Vital Signs Temperature 98.0 F 02/18/20 19:20 Pulse Rate 95 H 02/18/20 19:20 Respiratory Rate 16 02/18/20 19:20 Blood Pressure 166/91 H 02/18/20 19:20 Pulse Oximetry 100 02/18/20 19:20 Procedures Abscess I/D I&D #1: Site: scalp Side (if applicable): left Local Anesthetic: lidocaine 1% and with bicarb Amount of anesthesia used (mL): 6 Technique: incised with #11 blade Amount of fluid expressed (mL): 8 Irrigation: No Packing used?: none Course Orders Ordered: ED Orders 02/18/20 19:45 Basic Metabolic Panel Stat Complete Blood Count AUTO DIFF Stat Lactate (Lactic Acid) Stat 02/18/20 20:00 Venous Blood Gas Stat 02/18/20 20:35 Wound Culture and Gram Stain Stat Discontinued Medications Hydrocodone Bitart/Acetaminophen (Vicodin 5/325 Prepack) 1 bottle MISC SEEINSTR ONE Stop: 02/18/20 20:40 Last Admin: 02/18/20 20:47 Dose: 1 bottle Documented by: [place] Doxycycline Hyclate (Vibramycin) 100 mg PO NOW ONE Stop: 02/18/20 20:40 Last Admin: 02/18/20 20:47 Dose: 100 mg Documented by: [place] Ketorolac Tromethamine (Toradol) 15 mg IV NOW ONE Stop: 02/18/20 20:40 Last Admin: 02/18/20 20:47 Dose: 15 mg Documented by: [place] Lidocaine/Sodium Bicarbonate (Buffered Lidocaine 10 Ml Syr) 10 ml INJ NOW ONE Stop: 02/18/20 20:01 Last Admin: 02/18/20 20:48 Dose: 10 ml Documented by: [place] Vital Signs Vital signs: Vital Signs - 8 hr 02/18/20 20:46 Pulse Rate 87 Blood Pressure [Right Arm] 177/79 H Pulse Oximetry 100 MDM - Skin/Abscess/Foreign Bdy Lab Data Result diagrams: 02/18/20 19:45 02/18/20 19:45 Labs: Lab Results 02/18/20 02/18/20 02/18/20 Range/Units 19:45 19:45 19:45 WBC 16.1 H (4.5-11.0) X10^3/uL RBC 3.82 L (4.0-5.2) X10^6/uL Hgb 11.6 L (12.0-16.0) g/dL Hct 33.9 L (36-46) % MCV 88.7 (80-100) fL MCH 30.3 (26-34) PG MCHC 34.2 (30-36) % RDW 15.5 H (11.6-14.8) % Plt Count 502 H (150-400) X10^3/uL Neut % (Auto) 60.7 (50-75) % Lymph % (Auto) 26.0 (25-40) % [place] % (Auto) 6.9 (3-14) % Eos % (Auto) 6.2 H (2-4) % Baso % (Auto) 0.2 (0-2) % Neut # (Auto) 9800 H (6992-0980) /uL Lymph # (Auto) 4200 (6506-8985) /uL [place] # (Auto) 1100 H (0-900) /uL Eos # (Auto) 1000 H (0-450) /uL Baso # (Auto) 0 (0-100) /uL Sodium 136 L (137-145) mmol/L Potassium 3.9 (3.4-5.1) mmol/L Chloride 103 (98-107) mmol/L Carbon Dioxide 26 (22-32) mmol/L BUN 15 (7-17) mg/dL Creatinine 0.59 (0.52-1.04) mg/dL Estimated GFR > 60.0 (>60) mL/min BUN/Creatinine Ratio 25.4 H (6-22) Glucose 105 H (70-100) mg/dL Lactate 1.7 (0.7-2.1) mmol/L Calcium 9.5 (8.4-10.2) mg/dL MDM Narrative Medical decision making narrative: Spontaneously draining abscess with minimal surrounding erythema. No suggestion of sepsis. Return precautions given. Questions answered to her apparent satisfaction Discharge Plan Departure Patient Disposition: Home Clinical Impression: Cutaneous abscess Qualifiers: Site of cutaneous abscess: head Qualified Code(s): L02.811 - Cutaneous abscess of head [any part, except face] Discharge Date/Time: 02/18/20 21:12 Instructions: DI for Skin Abscess Activity Restrictions/Additional Instructions: *You have been diagnosed with [scalp abscess with minimal cellulitis] *What to do: *Take medications as directed *Follow up with your primary care provider in 2-3 days, call for an appointment. Let them know you were seen in the Emergency Department and that we ask that you be seen in follow up *Return to ER if you should have any new, worsening or concerning symptoms, such as [fever, shaking chills, vomiting or other bothersome symptoms] Prescriptions: New hydrocodone-acetaminophen 5-325 mg tablet 1 tab PO Q4-6H PRN (Reason: pain) Qty: 10 RF: 0 doxycycline hyclate 100 mg tablet 100 mg PO BID Qty: 20 RF: 0 No Action lisinopril 2.5 mg tablet 2.5 mg PO DAILY RF: 0 mupirocin 2 % ointment 1 applictn TOP DAILY Qty: 30 RF: 0 insulin lispro [Humalog U-100 Insulin] 100 UNIT/1 ML solution 0 unit INJ SEE INSTRUCTIONS RF: 0 Referrals: Danisha Bocanegra FNP-TOM [Primary Care Provider] -
[2020-02-18 20:03] LABS: BUN Creatinine Ratio 25.4 (6-22); Blood Urea Nitrogen 15 mg/dL (7-17); Calcium 9.5 mg/dL (8.4-10.2); Carbon Dioxide 26 mmol/L (22-32); Chloride 103 mmol/L (98-107); Estimated Glomerular Filt Rate > 60.0 mL/min (>60); Glucose 105 mg/dL (70-100); HEMOLYSIS < 15 (0-50); Lactate (Lactic Acid) 1.7 mmol/L (0.7-2.1); Potassium 3.9 mmol/L (3.4-5.1); Sodium 136 mmol/L (137-145)
[2020-02-18 20:46] VITALS: BP 177/79; PULSE 87; O2SAT 100
[2020-02-18] MEDS: HYDROCODONE/ACET 5/325 PREPACK 1 BOTTLE MISC (20:47)
[2020-02-18] MEDS: DOXYCYCLINE HYCLATE 100 MG TABLET PO (20:47)
[2020-02-18] MEDS: KETOROLAC 60 MG/2 ML VIAL 15 MG IV (20:47)
[2020-02-18] MEDS: LIDO 1%/SOD BICARB 8.4% (10ML) 10 ML SYRINGE INJ (20:48)
== END 2020-02-18 21:12 | disposition home or self-care (01) ==
PROVIDERS: Emergency Provider Emergency Medicine; PCP Nurse Practitioner Family
DX: L02.811 Cutaneous abscess of head [any part, except face] (principal)
CPT/HCPCS: 10060; 36415; 80048; 83605; 85025; 87070; 87075; 87077; 87147; 87186; 87205; 96374; 99284; J1885

== ENCOUNTER → 2020-11-30 09:32 | Outpatient (CLI) | payer OTHER, SELFPAY ==
[2019-10-11 16:07] VITALS: BMI 24.5
[2020-11-30 11:06] LABS: Thyroid Stimulating Hormone 5.09 uIU/mL (0.47-4.68)
[2020-12-01 08:09] LABS: Parathyroid Hormone Int 29 pg/mL (15-65)
== END ==
PROVIDERS: PCP Student in an Organized Health Care Education/Training Program; Referring Provider Student in an Organized Health Care Education/Training Program; Visit Provider Student in an Organized Health Care Education/Training Program
DX: E03.9 Hypothyroidism, unspecified (principal)
CPT/HCPCS: 83970; 84443

== ENCOUNTER → 2020-12-12 08:35 | Outpatient (CLI) | payer OTHER, SELFPAY ==
[2019-10-11 16:07] VITALS: BMI 24.5
[2020-12-12] MEDS: COVID-19 VACC #1, MRNA(MOD) 100 MCG/0.5 ML VIAL IM (08:51)
== END ==
PROVIDERS: PCP Student in an Organized Health Care Education/Training Program; Visit Provider Internal Medicine
DX: Z23 Encounter for immunization (principal)
CPT/HCPCS: 0011A; 91301

== ENCOUNTER → 2021-01-09 08:27 | Outpatient (CLI) | payer OTHER, SELFPAY ==
[2019-10-11 16:07] VITALS: BMI 24.5
[2021-01-09] MEDS: COVID-19 VACC #2, MRNA(MOD) 100 MCG/0.5 ML VIAL IM (08:34)
== END ==
PROVIDERS: PCP Student in an Organized Health Care Education/Training Program; Visit Provider Internal Medicine
DX: Z23 Encounter for immunization (principal)
CPT/HCPCS: 0012A; 91301

== ENCOUNTER 2024-10-16 10:13 | Emergency (ER) | payer OTHER, SELFPAY ==
[2019-10-11 16:07] VITALS: BMI 24.5
[2024-10-16 10:25] VITALS: BP 156/68; PULSE 109; RESP 16; TEMP 36.9; O2SAT 99; BMI 29.2
[2024-10-16 11:03] LABS: Add Manual Diff / Slide Review NO; Basophils Absolute Auto 100 /uL (0-100); Basophils Percent Auto 0.8 % (0-2); Eosinophils Absolute Auto 300 /uL (0-450); Eosinophils Percent Auto 1.6 % (2-4); Hematocrit 39.3 % (36-46); Hemoglobin 12.8 g/dL (12.0-16.0); Lymphocytes Absolute Auto 1800 /uL (1100-4500); Lymphocytes Percent Auto 11.5 % (25-40); Mean Corpuscular HGB Conc 32.5 % (30-36); Mean Corpuscular Hemoglobin 29.1 PG (26-34); Mean Corpuscular Volume 89.6 fL (80-100); Monocytes Absolute Auto 1100 /uL (0-900); Neutrophils Absolute Auto 12600 /uL (1500-7000); Neutrophils Percent Auto 79.1 % (50-75); Platelet Count 590 X10^3/uL (150-400); Red Blood Cell Count 4.39 X10^6/uL (4.0-5.2); Red Cell Distribution Width 14.2 % (11.6-14.8)
[2024-10-16] MEDS: ONDANSETRON 4 MG/2 ML INJ IV (11:03)
[2024-10-16] MEDS: KETOROLAC 30 MG/ML VIAL 15 MG IV (11:03)
[2024-10-16 11:09] LABS: Alanine Aminotransferase 30 IU/L (<35); Albumin Globulin Ratio 1.1 (1.0-2.8); Alkaline Phosphatase 143 U/L (38-126); Aspartate Aminotransferase 32 IU/L (14-36); BUN Creatinine Ratio 8.5 (6-22); Bilirubin Total 0.8 mg/dL (0.2-1.3); Blood Urea Nitrogen 7 mg/dL (7-17); Calcium 9.2 mg/dL (8.4-10.2); Carbon Dioxide 18 mmol/L (22-32); Chloride 102 mmol/L (98-107); Estimated Glomerular Filt Rate > 60 mL/min (>60); Globulin 3.5 g/dL (1.7-4.1); Glucose 252 mg/dL (70-100); HEMOLYSIS < 15 (0-50); Lipase 50 U/L (23-300); Potassium 3.5 mmol/L (3.4-5.1); Sodium 134 mmol/L (137-145); Total Protein 7.5 g/dL (6.3-8.2)
[2024-10-16 11:14] LABS: Bacteria Urine Few (2-10); Culture Indicated Urine Cult Not Indicated; RBC Urine 1-5/HPF (0-5/HPF); Squamous Epithelial Cell Urine 1-5 /HPF (0-5/HPF); Urine Volume 10mL (spun); WBC Urine 1-5/HPF (0-5/HPF)
--- NOTE | 2024-10-16 11:29 | DI.CT.S_ITS ---
PROCEDURE: CT ABDOMEN PELVIS W CON INDICATIONS: Right flank and right upper quadrant pain TECHNIQUE: After the administration of intravenous contrast, axial sections acquired from the lung bases to the pubic symphysis. Coronal and sagittal reformats were performed. For radiation dose reduction, the following was used: automated exposure control, adjustment of mA and/or kV according to patient size. COMPARISON: None. FINDINGS: Image quality: Diagnostic. Lower Chest: No significant findings. ABDOMEN: Liver: The liver is diffusely decreased in attenuation without focal mass lesion. Gallbladder: No radiopaque gallstones or wall thickening. Biliary ducts: No biliary dilation. Pancreas: No ductal dilation. Spleen: Size is within normal limits. Adrenal Glands: No adrenal nodules. Kidneys and Ureters: 4 mm calculus at the right ureterovesical junction results in moderate right hydronephrosis and hydroureter with perinephric stranding. No left hydronephrosis. No nonobstructing calculi. Stomach and Bowel: Normal colonic caliber, without significant wall thickening. Normal appendix identified. No evidence of appendicitis. Peritoneum: No abnormal intraperitoneal fluid. No free air. Ventral Wall: No significant ventral hernia. Abdominal Nodes: No retroperitoneal or mesenteric adenopathy by size criteria. Vessels: Aorta and inferior vena cava are normal in size. PELVIS: Pelvic Organs: Intrauterine device in place. Bladder: No bladder wall thickening, accounting for underdistention. Pelvic Nodes: No enlarged lymph nodes. Miscellaneous: No inguinal hernias are seen. Bones: No aggressive osseous abnormality. IMPRESSION: Moderate right hydronephrosis associated with 4 mm calculus at the right ureterovesical junction Approved by: Hari Ramos M.D. on 10/16/2024 at 11:11
--- NOTE | 2024-10-16 11:31 | ED.ABDPAIN ---
HPI - Abdominal Pain <KARSTEN Hernandez - Last Filed: 10/16/24 12:58> General Chief Complaint: Abdominal Pain Stated Complaint: right sided pain radiating to back Time Seen by Provider: 10/16/24 11:04 Source: patient Mode of arrival: Ambulatory History of Present Illness HPI narrative: 44-year-old female, with history of DM1, presented to the emergency department with complaints of right flank pain radiating to her right groin since last evening. Patient has a sick child at home and was not able to come in but reports a 9/10 pain at that time. This morning the pain was at 7/10 when she presented to the emergency department. Single dose of Toradol provided and by the time the provider saw her pain was at 2/10. Patient denies any UTI like symptoms or ever having this type of pain in the past. Related Data Home Medications Medication Instructions Recorded Confirmed lisinopril 2.5 mg tablet 2.5 mg PO DAILY 09/08/19 09/17/23 levothyroxine 175 mcg capsule 175 mcg PO DAILY 04/18/21 09/17/23 rosuvastatin 10 mg tablet 10 mg PO ONCE PM 09/17/23 09/17/23 Previous Rx's Medication Instructions Recorded insulin glargine 100 unit/mL (3 23 unit (0.23 mL) SUBCUT BID #15 mL 02/27/22 mL) subcutaneous pen (Lantus Solostar U-100 Insulin) insulin lispro 100 unit/mL See Rx Instructions SUBCUT 02/27/22 subcutaneous solution (Humalog .COMPLEX #30 mL U-100 Insulin) doxycycline monohydrate 100 mg 100 mg PO BID #20 caps 09/17/23 capsule oxycodone-acetaminophen 5 mg-325 1 tab PO Q6H PRN pain #10 tabs 10/16/24 mg tablet (Percocet) tamsulosin 0.4 mg capsule (Flomax) 0.4 mg PO DAILY #7 caps 10/16/24 Allergies Allergy/AdvReac Type Severity Reaction Status Date / Time ceftriaxone [From Rocephin] Allergy facial Verified 09/17/23 13:55 swelling Review of Systems <KARSTEN Hernandez - Last Filed: 10/16/24 12:58> Review of Systems Narrative: Narrative: See HPI. GENERAL: Denies chills, fatigue, fever, sweats. HEENT: Denies sinus pain, ear pain, sore throat, difficulty swallowing, dizziness. RESPIRATORY: Denies dyspnea, cough, wheezing, sputum. CARDIOVASCULAR: Denies chest pain, palpitations, edema. GASTROINTESTINAL: Denies current nausea, vomiting, diarrhea, constipation. Endorses abdominal pain. : Denies dysuria, frequency, incontinence, hematuria, urinary retention. Endorses right flank pain. MSK: Denies weakness, joint pain, or bony pain. SKIN: Denies rash, skin lesions, or pruritis. NEUROLOGIC: Denies weakness, dizziness, headache, numbness, confusion. PSYCHIATRIC: No concerning psychosocial issues. Patient History <KARSTEN Hernandez - Last Filed: 10/16/24 12:58> Medical History Allergies (~1999) Migraines (~2002) Shoulder pain (~2017) Chicken pox (~1982) Abscess Dyslipidemia Diabetic retinopathy (09/21/17) Diabetes mellitus type 1 with complications (~1994) Hypothyroid (~1991) Surgical History Anesthesia History of placement of ear tubes (~1983) Skin infection (~09/2019) Sulphur teeth removed (~2004) History of section (~02/26/10) Status post hysteroscopy Status post myringotomy with insertion of tube Family History Father Age: 69 High cholesterol Hypertension Grandfather Diabetes mellitus Grandmother Age: 92 Breast cancer Mother Age: 69 High cholesterol Grandmother Cancer Heart disease Sister Age: 47 High cholesterol Social History household members: significant other and children Smoking Status: Never smoker Smoking Status: Never smoker alcohol intake frequency: holidays/special occasions only Exam <KARSTEN Hernandez - Last Filed: 10/16/24 12:58> Narrative Exam Narrative: Exam Narrative: GENERAL: This is a well-nourished, well-developed patient, in no acute distress. HEAD: Atraumatic. Normocephalic. EYES: Pupils equal round and reactive. Extraocular motions intact. No scleral icterus, injection or drainage. CARDIOVASCULAR: Regular rate and rhythm without murmurs, peripheral pulses intact, cap refill <2 sec. RESPIRATORY: Breath sounds equal and clear bilaterally. No wheezes, rales, or rhonchi. No cough. No increased respiratory effort. No accessory muscle use. GASTROINTESTINAL: Abdomen soft, right upper quadrant tenderness, nondistended without guarding or rebound. No suprapubic pain. MSK: Moves all extremities. Normal range of motion, no clubbing or edema. Neurovascularly intact. NEURO: A&O x 3. SKIN: Warm, dry, no rashes or lesions noted. Initial Vital Signs Initial Vital Signs: Vital Signs Temperature 98.4 F 10/16/24 10:25 Pulse Rate 109 H 10/16/24 10:25 Respiratory Rate 16 10/16/24 10:25 Blood Pressure 156/68 H 10/16/24 10:25 Pulse Oximetry 99 10/16/24 10:25 Oxygen Delivery Method Room Air 10/16/24 10:25 Reviewed <Shreya Mcgovern DO - Last Filed: 10/16/24 18:32> Initial Vital Signs Initial Vital Signs: Vital Signs Temperature 98.4 F 10/16/24 10:25 Pulse Rate 109 H 10/16/24 10:25 Respiratory Rate 16 10/16/24 10:25 Blood Pressure 156/68 H 10/16/24 10:25 Pulse Oximetry 99 10/16/24 10:25 Oxygen Delivery Method Room Air 10/16/24 10:25 Course <KARSTEN Hernandez - Last Filed: 10/16/24 12:58> Orders Ordered: ED Orders 10/16/24 10:30 Complete Blood Count AUTO DIFF Stat Comprehensive Metabolic Panel Stat Lipase Stat Urine Microscopic Stat 10/16/24 11:29 CT abdomen pelvis w con Stat Discontinued Medications Ketorolac Tromethamine (Ketorolac 30 Mg/Ml Vial) 15 mg IV NOW ONE Stop: 10/16/24 10:51 Last Admin: 10/16/24 11:03 Dose: 15 mg Documented By: MARILIN Ondansetron HCl (Ondansetron 4 Mg/2 Ml Inj) 4 mg IV NOW PRN PRN Reason: Nausea And Vomiting Last Admin: 10/16/24 11:03 Dose: 4 mg Documented By: MARILIN Ondansetron HCl (Ondansetron 4 Mg Odt) 4 mg PO NOW PRN PRN Reason: Nausea And Vomiting Vital Signs Vital signs: Vital Signs - 8 hr 10/16/24 12:17 10/16/24 13:17 Pulse Rate 95 H 95 H Respiratory Rate 16 16 Blood Pressure 127/62 154/63 H Pulse Oximetry 99 95 Oxygen Delivery Method Room Air Room Air <Shreya Mcgovern DO - Last Filed: 10/16/24 18:32> Orders Ordered: ED Orders 10/16/24 10:30 Complete Blood Count AUTO DIFF Stat Comprehensive Metabolic Panel Stat Lipase Stat Urine Microscopic Stat 10/16/24 11:29 CT abdomen pelvis w con Stat Discontinued Medications Ketorolac Tromethamine (Ketorolac 30 Mg/Ml Vial) 15 mg IV NOW ONE Stop: 10/16/24 10:51 Last Admin: 10/16/24 11:03 Dose: 15 mg Documented By: MARILIN Ondansetron HCl (Ondansetron 4 Mg/2 Ml Inj) 4 mg IV NOW PRN PRN Reason: Nausea And Vomiting Last Admin: 10/16/24 11:03 Dose: 4 mg Documented By: MARILIN Ondansetron HCl (Ondansetron 4 Mg Odt) 4 mg PO NOW PRN PRN Reason: Nausea And Vomiting Vital Signs Vital signs: Vital Signs - 8 hr 10/16/24 12:17 10/16/24 13:17 Pulse Rate 95 H 95 H Respiratory Rate 16 16 Blood Pressure 127/62 154/63 H Pulse Oximetry 99 95 Oxygen Delivery Method Room Air Room Air MDM - Abdominal Pain <KARSTEN Hernandez - Last Filed: 10/16/24 12:58> Differential Diagnosis Differential diagnosis: Likely abdominal pain, small bowel obstruction and other (Cholelithiasis, nephrolithiasis) Lab Data 10/16/24 10:30 10/16/24 10:30 Labs: Lab Results 10/16/24 Range/Units 10:30 WBC 16.0 H (4.5-11.0) X10^3/uL RBC 4.39 (4.0-5.2) X10^6/uL Hgb 12.8 (12.0-16.0) g/dL Hct 39.3 (36-46) % MCV 89.6 (80-100) fL MCH 29.1 (26-34) PG MCHC 32.5 (30-36) % RDW 14.2 (11.6-14.8) % Plt Count 590 H (150-400) X10^3/uL Neut % (Auto) 79.1 H (50-75) % Lymph % (Auto) 11.5 L (25-40) % Pershing % (Auto) 7.0 (3-14) % Eos % (Auto) 1.6 L (2-4) % Baso % (Auto) 0.8 (0-2) % Neut # (Auto) 20196 H (2064-4699) /uL Lymph # (Auto) 1800 (3162-6959) /uL Pershing # (Auto) 1100 H (0-900) /uL Eos # (Auto) 300 (0-450) /uL Baso # (Auto) 100 (0-100) /uL Sodium 134 L (137-145) mmol/L Potassium 3.5 (3.4-5.1) mmol/L Chloride 102 (98-107) mmol/L Carbon Dioxide 18 L (22-32) mmol/L BUN 7 (7-17) mg/dL Creatinine 0.82 (0.52-1.04) mg/dL Estimated GFR > 60 (>60) mL/min BUN/Creatinine Ratio 8.5 (6-22) Glucose 252 H (70-100) mg/dL Calcium 9.2 (8.4-10.2) mg/dL Total Bilirubin 0.8 (0.2-1.3) mg/dL AST 32 (14-36) IU/L ALT 30 (<35) IU/L Alkaline Phosphatase 143 H (38-126) U/L Total Protein 7.5 (6.3-8.2) g/dL Albumin 4.0 (3.5-5.0) g/dL Globulin 3.5 (1.7-4.1) g/dL Albumin/Globulin Ratio 1.1 (1.0-2.8) Lipase 50 (23-300) U/L Urine RBC 1-5/hpf (0-5/HPF) Urine WBC 1-5/hpf (0-5/HPF) Ur Squamous Epith Cells 1-5 /hpf (0-5/HPF) Urine Bacteria Few (2-10) H (None) Ur Culture Indicated? Cult not indicated Vol Urine Centrifuged 10ml (spun) Point of care testing: Point of Care Testing Test Results Negative Glucose POC 201 Urine Dip Bedside Urine Glucose 1000 mg/dl Bedside Urine Bilirubin - Negative Bedside Urine Ketone +++ 80 Urine Specific [place] 1.025 Bedside Urine Occult Blood +/- Bedside Urine pH 6.0 Bedside Urine Protein +/- 15 Bedside Urine Urobilinogen - Negative Bedside Urine Nitrite - Negative Bedside Urine Leukocytes - Negative Esterase Imaging Data CT scan - abdomen/pelvis: Radiologist's Impression: [address] [id number] [address] Scan Report Signed Patient: Catina Moya MR#: [id number] : 1980 Acct:[id number] Age/Sex: 44 / F Date of Service: 10/16/24 Loc: ED Accession Number: [id number] Procedure: CT abdomen pelvis w con Ordering Provider: Sidney Terry PROCEDURE: CT ABDOMEN PELVIS W CON INDICATIONS: Right flank and right upper quadrant pain TECHNIQUE: After the administration of intravenous contrast, axial sections acquired from the lung bases to the pubic symphysis. Coronal and sagittal reformats were performed. For radiation dose reduction, the following was used: automated exposure control, adjustment of mA and/or kV according to patient size. COMPARISON: None. FINDINGS: Image quality: Diagnostic. Lower Chest: No significant findings. ABDOMEN: Liver: The liver is diffusely decreased in attenuation without focal mass lesion. Gallbladder: No radiopaque gallstones or wall thickening. Biliary ducts: No biliary dilation. Pancreas: No ductal dilation. Spleen: Size is within normal limits. Adrenal Glands: No adrenal nodules. Kidneys and Ureters: 4 mm calculus at the right ureterovesical junction results in moderate right hydronephrosis and hydroureter with perinephric stranding. No left hydronephrosis. No nonobstructing calculi. Stomach and Bowel: Normal colonic caliber, without significant wall thickening. Normal appendix identified. No evidence of appendicitis. Peritoneum: No abnormal intraperitoneal fluid. No free air. Ventral Wall: No significant ventral hernia. Abdominal Nodes: No retroperitoneal or mesenteric adenopathy by size criteria. Vessels: Aorta and inferior vena cava are normal in size. PELVIS: Pelvic Organs: Intrauterine device in place. Bladder: No bladder wall thickening, accounting for underdistention. Pelvic Nodes: No enlarged lymph nodes. Miscellaneous: No inguinal hernias are seen. Bones: No aggressive osseous abnormality. IMPRESSION: Moderate right hydronephrosis associated with 4 mm calculus at the right ureterovesical junction Approved by: Hari Ramos M.D. on 10/16/2024 at 11:11 MDM Narrative Medical decision making narrative: 44-year-old female with right upper quadrant and right flank pain x1 day. Clinical findings were concerning for kidney stone or gallbladder disease. Elevated WBC, plt, neut and glucose. Pt with hx of DM1 and finger stick revealed 201. Point of care urine dip was not consistent with UTI. Negative hCG. 15 mg of Toradol administered that controlled pain from a 03/23 to 10/24. Will obtain an abdominal CT. CT revealed 4 mm kidney stone with moderate hydronephrosis. Will discharge patient home now that pain is under control with Flomax, NSAIDs and short course of opioids. Discussed plan of care and return precautions with patient, who verbalized understanding and was agreeable to course of action <Shreya Mcgovern, DO - Last Filed: 10/16/24 18:32> Lab Data Labs: Lab Results 10/16/24 Range/Units 10:30 WBC 16.0 H (4.5-11.0) X10^3/uL RBC 4.39 (4.0-5.2) X10^6/uL Hgb 12.8 (12.0-16.0) g/dL Hct 39.3 (36-46) % MCV 89.6 (80-100) fL MCH 29.1 (26-34) PG MCHC 32.5 (30-36) % RDW 14.2 (11.6-14.8) % Plt Count 590 H (150-400) X10^3/uL Neut % (Auto) 79.1 H (50-75) % Lymph % (Auto) 11.5 L (25-40) % Pershing % (Auto) 7.0 (3-14) % Eos % (Auto) 1.6 L (2-4) % Baso % (Auto) 0.8 (0-2) % Neut # (Auto) 23170 H (7652-6341) /uL Lymph # (Auto) 1800 (8132-4376) /uL Pershing # (Auto) 1100 H (0-900) /uL Eos # (Auto) 300 (0-450) /uL Baso # (Auto) 100 (0-100) /uL Sodium 134 L (137-145) mmol/L Potassium 3.5 (3.4-5.1) mmol/L Chloride 102 (98-107) mmol/L Carbon Dioxide 18 L (22-32) mmol/L BUN 7 (7-17) mg/dL Creatinine 0.82 (0.52-1.04) mg/dL Estimated GFR > 60 (>60) mL/min BUN/Creatinine Ratio 8.5 (6-22) Glucose 252 H (70-100) mg/dL Calcium 9.2 (8.4-10.2) mg/dL Total Bilirubin 0.8 (0.2-1.3) mg/dL AST 32 (14-36) IU/L ALT 30 (<35) IU/L Alkaline Phosphatase 143 H (38-126) U/L Total Protein 7.5 (6.3-8.2) g/dL Albumin 4.0 (3.5-5.0) g/dL Globulin 3.5 (1.7-4.1) g/dL Albumin/Globulin Ratio 1.1 (1.0-2.8) Lipase 50 (23-300) U/L Urine RBC 1-5/hpf (0-5/HPF) Urine WBC 1-5/hpf (0-5/HPF) Ur Squamous Epith Cells 1-5 /hpf (0-5/HPF) Urine Bacteria Few (2-10) H (None) Ur Culture Indicated? Cult not indicated Vol Urine Centrifuged 10ml (spun) Point of care testing: Point of Care Testing Test Results Negative Glucose POC 201 Urine Dip Bedside Urine Glucose 1000 mg/dl Bedside Urine Bilirubin - Negative Bedside Urine Ketone +++ 80 Urine Specific [place] 1.025 Bedside Urine Occult Blood +/- Bedside Urine pH 6.0 Bedside Urine Protein +/- 15 Bedside Urine Urobilinogen - Negative Bedside Urine Nitrite - Negative Bedside Urine Leukocytes - Negative Esterase Discharge Plan Departure Patient Disposition: Home Clinical Impression: Right nephrolithiasis Instructions: DI for Kidney Stones Activity Restrictions/Additional Instructions: *You have been diagnosed with a 4 mm kidney stone on your right side. Your CT scan was normal with the exception of the 4 mm kidney stone on your right side. I am happy that the Toradol injection we gave you helped with your discomfort. I recommend you start taking ibuprofen 400-600 mg 3 times a day with food starting this evening. Additionally, I will prescribe a medication called Flomax that may help you to pass the kidney stone. As this can be quite painful, will prescribe a short course of pain medication for pain not controlled with the ibuprofen. For any worsening symptoms that includes uncontrolled pain, please return to the emergency department. *What to do: *Please continue to take your regular medications as directed. [ x] New medication prescriptions sent to your pharmacy: [[facility]] [ ] New medication written as a paper prescription [ ] No new medications given *Please follow up with your primary care provider in 2-3 days, call for an appointment. Let them know you were seen in the Emergency Department and that we ask that you be seen in follow up. We will electronically transmit a record of today's note if your PCP is in our system *If you do not have a primary care provider please contact the [facility] Resource line at [phone]. They will ask some questions about your medical history and help get you set up with a doctor in the community. ? Return to ER if you should have any new, worsening or concerning symptoms, such as worsening pain, severe headache, confusion, chest pain, difficulty breathing, fever greater than 101 F, shaking chills, persistent vomiting to the point that you cannot drink fluids, or other new or worsening symptoms. Prescriptions: New tamsulosin [Flomax] 0.4 mg capsule 0.4 mg PO DAILY Qty: 7 0RF oxycodone-acetaminophen [Percocet] 5-325 mg tablet 1 tab PO Q6H PRN (Reason: pain) Qty: 10 0RF No Action lisinopril 2.5 mg tablet 2.5 mg PO DAILY levothyroxine 175 mcg capsule 175 mcg PO DAILY insulin lispro [Humalog U-100 Insulin] 100 unit/mL solution See Rx Instructions SUBCUT .COMPLEX Qty: 30 3RF Rx Instructions: SUBCUT Sliding scale. 1 unit for every 10 carbs, max daily dose 65 units Lantus Solostar U-100 Insulin 100 unit/mL (3 mL) insulin pen 23 unit SUBCUT BID Qty: 15 3RF rosuvastatin 10 mg tablet 10 mg PO ONCE PM doxycycline monohydrate 100 mg capsule 100 mg PO BID Qty: 20 0RF Rx Instructions: Take one capsule twice daily for 10 days Referrals: Julius Banerjee ARNP [Primary Care Provider] - Stand Alone Forms: Patient Portal/API/Survey ED Sign-out <Shreya Mcgovern, - Last Filed: 10/16/24 18:32> Cosign ED Attending Cosignature Attestation: I was immediately available in the department for consultation.
[2024-10-16 12:17] VITALS: BP 127/62; PULSE 95; RESP 16; O2SAT 99
[2024-10-16 13:17] VITALS: BP 154/63; PULSE 95; RESP 16; O2SAT 95
== END 2024-10-16 13:19 | disposition home or self-care (01) ==
PROVIDERS: Emergency Medicine; Emergency Provider Registered Nurse; PCP Registered Nurse Diabetes Educator
DX: N20.0 Calculus of kidney (principal); E10.9 Type 1 diabetes mellitus without complications; I10 Essential (primary) hypertension; Z79.4 Long term (current) use of insulin; R10.11 Right upper quadrant pain; R79.89 Other specified abnormal findings of blood chemistry
CPT/HCPCS: 36415; 74177; 80053; 81003; 81015; 81025; 82962; 83690; 85025; 96374; 96375; 99284; J1885; J2405; Q9967